=== PATIENT | female | born 1940 | race Caucasian/White ===

== ENCOUNTER 2019-06-25 09:15 | Outpatient (CLI) | payer MEDICARE, SELFPAY ==
--- NOTE | ~2019-06-25 | PE_ITS ---
EXAMINATION: PET skull to mid thigh DATE: 06/25/2019 11:12 INDICATION: Lung nodule. TECHNIQUE: Blood glucose level was 98 mg/dL. 9.261 mCi of 18-fluorodeoxyglucose (18-FDG) was administ ered i.v. Low dose computed tomography (CT) images were acquired from the base of the brain to the pr oximal thighs for attenuation correction and anatomic localization. Automated exposure control was em ployed. Dose-length product (DLP) was 595 mGy-cm. Positron emission tomography (PET) images were acqu ired in the same distribution. COMPARISON: PET CT 04/09/2019 FINDINGS: Head/neck: There is mucosal thickening in right maxillary sinus with thickening and sclerosis of the sinus shaw, consistent with chronic sinusitis. There is increased activity in the oral cavity and or opharynx without CT correlate, likely physiologic. There are no pathologically enlarged lymph nodes. There is a multinodular goiter without increased activity. Chest: There are mild airspace opacities in left upper lobe, likely atelectasis. There is a 15 mm par t-solid nodule in left upper lobe with 12 mm solid component without increased activity. There is a 4 mm nodule in right upper lobe without increased activity without change, likely benign. There is mil d atelectasis bilaterally. No pleural effusion. Cardiomegaly is noted. There are coronary artery calc ifications. No pericardial effusion. There is a small sliding hiatal hernia. Abdomen/pelvis/proximal thighs: The liver is normal. There are changes of cholecystectomy. The spleen , pancreas, and adrenal glands are normal. There are peripelvic cysts in the kidneys measuring up to 3.0 cm on the left. There is a 1.5 cm cyst in left kidney. There are no dilated loops of bowel. There is a right inguinal hernia containing small bowel. There are no pathologically enlarged lymph nodes. There is no free intraperitoneal fluid. There is no osseous malignancy. IMPRESSION: 1. 15 mm part-solid nodule in left lung upper lobe without increased activity, stable from 06/10/2018, most likely benign. Reviewed, dictated and finalized at location A.
[2019-06-25 09:38] LABS: Glucose Point of Care 98 (65-105)
== END 2019-06-25 09:16 | disposition home or self-care (01) ==
PROVIDERS: PCP Internal Medicine; Visit Provider Nurse Practitioner
DX: R91.1 Solitary pulmonary nodule (principal)
CPT/HCPCS: 78815; A9552

== ENCOUNTER 2024-03-30 06:32 | Emergency (ER) | payer MEDICARE, SELFPAY ==
--- NOTE | ~2024-03-30 | CT_ITS ---
EXAMINATION: CT diagnostic chest w con DATE: 03/30/2024 08:32 INDICATION: right chest pain TECHNIQUE: Computed tomography (CT) of the chest was performed with 100 mL Omnipaque-350 intravenous contrast. Additional 3D reconstructions utilizing coronal maximum intensity projection (MIP) were per formed. Automated exposure control and iterative reconstruction technique were employed. The dose-alexy gth product was 194.26 mGy-cm. COMPARISON: PET/CT dated 06/25/2019 and 06/10/2018 FINDINGS: There is mild groundglass opacity throughout both lungs also mild smooth septal line thickening at th e apices and lung bases likely combination of atelectasis and minimal pulmonary edema. There is addit ional mild compressive atelectasis in the left upper and lower lobes along side the thoracic aorta. A gain seen is a nodule at the left apex which measures 2.2 x 1.3 cm when compared with 1.6 x 1.3 cm at the time of PET CT from greater than 4 years prior and 06/25/2019. No evident pneumonia or pleural ef fusion. Cardiomegaly. Atherosclerotic coronary artery calcification. No pericardial effusion. Ectatic ascending thoracic aorta measuring up to 4.2 cm in maximal diameter. No pathologically enlarged thor acic lymphadenopathy. Multinodular goiter. Cholecystectomy clips in the right upper quadrant. A few p arapelvic cysts at the upper poles of the kidneys. Moderate to severe thoracic spondylosis with chron ic mild anterior wedging of T7-T9. IMPRESSION: 1. Increase in size in one dimension of a 2.2 x 1.3 cm chronic left apical nodule present dating back to 2018. Some of the interval change in the long axis appears to relate to some increasing atelectas is but could not absolutely exclude a very slowly growing malignancy such as a bronchoalveolar carcin javier. Could consider CT-guided percutaneous biopsy if patient would be a surgical candidate considerin g the patient age and the minimal progression over the course of nearly 6 years. 2. Diffuse mild atelectasis and mild pulmonary edema which could relate to congestive heart failure. 3. Cardiomegaly. 4. Multinodular goiter. 5. Ectatic ascending thoracic aorta measuring up to 4.2 cm in maximal diameter. Reviewed, dictated and finalized at location A. ING HAND IMPRESSION: 1. Increase in size in one dimension of a 2.2 x 1.3 cm chronic left apical nodu le present dating back to 2019. Some of the interval change in the long axis ap pears to relate to some increasing atelectasis but could not absolutely exclude a very slowly growing malignancy such as a bronchoalveolar carcinoma. Could co nsider CT-guided percutaneous biopsy if patient would be a surgical candidate c onsidering the patient age and the minimal progression over the course of nearl y 6 years. 2. Diffuse mild atelectasis and mild pulmonary edema which could relate to laura estive heart failure. 3. Cardiomegaly. 4. Multinodular goiter. 5. Ectatic ascending thoracic aorta measuring up to 4.2 cm in maximal diameter.
--- NOTE | ~2024-03-30 | XR_ITS ---
Clinical Indication: Chest pain PA and lateral views of the chest: Comparison: None Findings: The lungs are clear, without evidence of focal consolidation or pleural effusion. Cardiome diastinal silhouette is within normal limits. Bones and soft tissues are unremarkable. Impression: Normal chest. Reviewed, dictated and finalized at location . NURSE Impression: Normal chest.
[2024-03-30 06:39] VITALS: BP 120/68; PULSE 79; RESP 20; TEMP 36.6; O2SAT 99
[2024-03-30 06:54] LABS: Basophils Percent Auto 0.6 % (0.2-1.2); Eosinophils Absolute Auto 0.2 K/mm3 (0-0.3); Eosinophils Percent Auto 3.7 % (0-4.4); Hematocrit 44.2 % (37.0-47.0); Hemoglobin 14.6 g/dL (12.0-15.0); Immature Granulocyte Absolute 0.02 K/mm3 (0.00-0.031); Immature Granulocyte Percent A 0.3 % (0-0.5); Lymphocytes Absolute Auto 2.55 K/mm3 (0.9-3.2); Lymphocytes Percent Auto 39.5 % (18.3-44.2); Mean Corpuscular Hemoglobin 31.7 pg (26-34); Mean Corpuscular Volume 95.9 fl (80-100); Mean Platelet Volume 12.3 fl (7.4-10.4); Monocytes Absolute Auto 0.5 K/mm3 (0.1-0.6); Monocytes Percent Auto 8.2 % (2.6-8.5); Neutrophils Absolute Auto 3.1 K/mm3 (1.3-6.7); Neutrophils Percent Auto 47.7 % (45.5-73.1); Platelet Count Result 160 k/mm3 (150-375); Red Blood Count 4.61 M/mm3 (4.2-5.4); Red Cell Distribution Width 13.2 % (11.5-14.5); White Blood Count 6.5 K/mm3 (4.5-10.0)
[2024-03-30 07:03] LABS: Alanine Aminotransferase 14 U/L (6-35); Albumin Level 4.1 g/dL (3.5-5.1); Alkaline Phosphatase 65 U/L (38-126); Anion Gap 4 mmol/L (4-12); Aspartate Amino Transferase 21 U/L (14-36); Bilirubin,Total 0.4 mg/dL (0.2-1.3); Blood Urea Nitrogen 22 mg/dL (7-17); Calcium 9.1 mg/dL (8.4-10.2); Carbon Dioxide 28 mmol/L (22-30); Chloride 108 mmol/L (98-107); Estimated CRCL calculation 43 ml/min; Estimated Glomerular Filt Rate > 60; Glucose 95 mg/dL (65-110); Lipase 76 U/L (23-300); Sodium 140 mmol/L (137-145)
--- NOTE | 2024-03-30 07:23 | ED_ITS ---
HPI - Chest Pain General Chief Complaint: Abdominal Pain Stated Complaint: right sided injury Time Seen by Provider: 03/30/24 07:10 History of Present Illness HPI narrative: Pt waws bending over sink a couple of days abo and felt pain in her lateral right chest which has worsened and now hurts to move and take a deep breath. Pt denies COB. Pt had cholecystectomy in past. Pt denies cough or fever or UTi symptoms. Related Data Allergies Allergy/AdvReac Type Severity Reaction Status Date / Time codeine Allergy Unknown Rash Verified 03/30/24 07:24 Review of Systems 2 Review of Systems: All systems reviewed & are unremarkable except as noted in HPI and below Exam 2 Const: General: healthy appearing and no acute distress Nutritional Appearance: well nourished Orientation/consciousness: patient oriented x3 Limitations: no limitations Chest: Chest palpation & inspection: normal inspection of the chest and tenderness rib (lateral right lower ribs tender to palpation but no crepitance) Resp: Effort & Inspection: normal respiratory effort Auscultation: clear to auscultation bilaterally Cardio: Rate: regular rate Rhythm: regular rhythm GI: GI Palp: Yes Soft to palpation and No Tenderness to palpation present (GI) Auscultation: normal bowel sounds Skin: General skin exam: normal color Wounds: no wounds Neuro: General: patient oriented x3, moves all extremities, no focal motor deficits and CN's II-XI intact bilaterally Cranial nerves: Yes Nystagmus not present Speech: normal speech Extrem: General: normal to inspection and no clubbing, cyanosis or edema Psych: Mental Status: mental status grossly normal Affect: normal affect Attitude: cooperative Course Vital Signs Vital signs: Vital Signs Temperature 97.9 F 03/30/24 06:39 Pulse Rate 79 03/30/24 06:39 Respiratory Rate 20 03/30/24 06:39 Blood Pressure 120/68 03/30/24 06:39 Pulse Oximetry 99 03/30/24 06:39 Oxygen Delivery Room Air 03/30/24 06:39 Temperature 97.9 F 03/30/24 06:39 Pulse Rate 60 03/30/24 10:50 Respiratory Rate 16 03/30/24 10:50 Blood Pressure 125/80 03/30/24 10:50 Pulse Oximetry 97 03/30/24 10:50 Oxygen Delivery Room Air 03/30/24 06:39 MDM - Chest Pain MDM Narrative Medical decision making narrative: 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 will control pain and get cxr and labs. labs look ok. cxr unremarkable. family concerned and say she has had issues in this same area off and on for some time. Will get CT of chest to rule out malignancy. CT show nothing over this area. Pt does have apical node which is chronic and may be larger. informed pt and will follow up with pcp. will send home on pain meds. Lab Data 03/30/24 06:48 03/30/24 06:48 Labs: Lab Results 03/30/24 03/30/24 Range/Units 06:48 07:22 WBC 6.5 (4.5-10.0) K/mm3 RBC 4.61 (4.2-5.4) M/mm3 Hgb 14.6 (12.0-15.0) g/dL Hct 44.2 (37.0-47.0) % MCV 95.9 (80-100) fl MCH 31.7 (26-34) pg MCHC 33.0 (32-36) g/dl RDW 13.2 (11.5-14.5) % Plt Count 160 (150-375) k/mm3 MPV 12.3 H (7.4-10.4) fl Immature Gran % (Auto) 0.3 (0-0.5) % Neut % (Auto) 47.7 (45.5-73.1) % Lymph % (Auto) 39.5 (18.3-44.2) % [place] % (Auto) 8.2 (2.6-8.5) % Eos % (Auto) 3.7 (0-4.4) % Baso % (Auto) 0.6 (0.2-1.2) % Lymph # (Auto) 2.55 (0.9-3.2) K/mm3 [place] # (Auto) 0.5 (0.1-0.6) K/mm3 Eos # (Auto) 0.2 (0-0.3) K/mm3 Baso # (Auto) 0.0 (0.0-0.1) K/mm3 Abs Immat Gran (auto) 0.02 (0.00-0.031) K/mm3 Absolute Neuts (auto) 3.1 (1.3-6.7) K/mm3 Absolute Nucleated RBC 0.000 (0.0-0.012) K/mm3 Nucleated RBC % 0.0 (0.0-0.2) % Sodium 140 (137-145) mmol/L Potassium 4.0 (3.4-5.0) mmol/L Chloride 108 H (98-107) mmol/L Carbon Dioxide 28 (22-30) mmol/L Anion Gap 4 (4-12) mmol/L BUN 22 H (7-17) mg/dL Creatinine 0.80 (0.7-1.0) mg/dL Estim Creat Clear Calc 43 ml/min Estimated GFR > 60 (59 - ) Glucose 95 (65-110) mg/dL Calcium 9.1 (8.4-10.2) mg/dL Total Bilirubin 0.4 (0.2-1.3) mg/dL AST 21 (14-36) U/L ALT 14 (6-35) U/L Alkaline Phosphatase 65 (38-126) U/L Total Protein 7.0 (6.3-8.2) g/dL Albumin 4.1 (3.5-5.1) g/dL Lipase 76 (23-300) U/L Urine Color Yellow (Yellow) Urine Appearance Clear (Clear) Urine pH 7.0 (5.0-9.0) Ur Specific [place] 1.009 (1.001-1.035) Urine Protein Negative (Negative) mg/dL Urine Glucose (UA) Negative (Negative) mg/dL Urine Ketones Negative (Negative) mg/dL Ur Blood (Man) Negative (Negative) Urine Nitrate Negative (Negative) Urine Bilirubin Negative (Negative) Urine Urobilinogen 1.0 (<2.0) mg/dL Add Ur Microanalysis Reviewed Leukocyte Esterase Rfl 2+ H (Negative) STEPHENIE/UL Urine RBC 0-2 (0-2) /hpf Urine WBC 0-5 (0-3) /hpf Ur Squamous Epith Cells None seen (Few) /hpf Urine Bacteria 4+ H /hpf Urine Casts 0-2 Discharge Plan Discharge Clinical Impression: Chest wall pain, Acute UTI Patient Disposition: Home, Self-Care Condition: Improved Instructions: Antibiotic Form, Chest Wall Pain (ED), Urinary Tract Infection in Older Adults (ED) Patient Language: Korean Prescriptions: New hydrocodone-acetaminophen 5-325 mg tablet 1 tablet PO Q8H PRN (Reason: pain) Qty: 14 0RF nitrofurantoin monohyd/m-cryst [Macrobid] 100 mg capsule 100 mg PO Q12H 5 Days Qty: 10 0RF Rx Instructions: must administer with a meal/food Follow-up/Referrals: Sofi,Keegan Martinez MD [Primary Care Provider] -
[2024-03-30] MEDS: MORPHINE SULFATE (*CRX) 4 MG/ML INJ IV PUSH (07:26)
[2024-03-30 07:41] LABS: Add Urine Microscopic? YES; Appearance Urine Clear (Clear); Bacteria Urine 4+ /hpf; Bilirubin Urine Negative (Negative); Blood Urine Negative (Negative); Color Urine Yellow (Yellow); Glucose Urine UA Negative (Negative); Ketones Urine Negative (Negative); Leukocyte Esterase Ur 2+ LEU/UL (Negative); Need Manual Microscopic Reviewed; Nitrate Urine Negative (Negative); Non Pathogenic Casts 0-2; Protein Urine Negative (Negative); RBC Urine 0-2 /hpf (0-2); Specific Grav Ur 1.009 (1.001-1.035); Squamous Epithelial Cell Urine None Seen /hpf (Few); WBC Urine 0-5 /hpf (0-3)
[2024-03-30] MEDS: ONDANSETRON INJ 4 MG/2 ML VIAL IV PUSH (07:41)
[2024-03-30 07:43] VITALS: BP 126/62; PULSE 63; RESP 14; O2SAT 94
[2024-03-30 09:16] VITALS: BP 126/62; PULSE 65; RESP 14; O2SAT 97
[2024-03-30 10:50] VITALS: BP 125/80; PULSE 60; RESP 16; O2SAT 97
--- OUTSIDE RECORDS SUMMARY | 2024-04-04 14:29 | XMS_ITS | Encounter Summary ---
Author Organization [facility] Address [address] [place] [address] Phone Care Team Providers Care Marketing Specialist Name Role Phone Keegan Farah MD Primary Care Provider [phone] Reason for Visit * Reason Comments Fall Encounter Details Date Type Department Care Team (Late st Contact Info) Description 05/05/2022 1:12 PM RAT BREEDER - 05/05/2022 6:11 PM RAT BREEDER Emergency [facility] [address] [place] [address] Myron Akins MD [address] [place] [id number] Fall down stairs, initial encounter Discharge Disposition: Discharged to home or Selfcare Social History Tobacco Use Types Packs/Day Years Used Date Smoking Tobacco: Never Passive Smoke Exposure: Never Smokeless Tobacco: Never Tobacco Cessation:Counseling Given: Not Answered Alcohol Use Standard Drinks/Week Comments Never 0 (1 standard drink = 0.6 oz pur e alcohol) Comments Unknown Sex and Gender Information Value Date Recorded Sex Assigned at Not on file Legal Sex Female 1:11 PM RAT BREEDER Gender Identity Not on file Sexual Orientation Not on file COVID-19 Exposure Response Date Recorded In the last 10 days, have yo u been in contact with someone who was confirmed or suspected to have Coronavirus/COVID-19? No / Unsure 05/05/2022 1:11 PM RAT BREEDER documented as of this encounter Last Filed Vital Signs Vital Sign Reading Time Taken Comments Blood Pressure 105/58 05/05/2022 3:30 PM RAT BREEDER Pulse 79 05/05/2022 1:36 PM RAT BREEDER Temperature 36.3 ??C (97.4 ??F) 05/05/2022 1:36 PM CS T Respiratory Rate 20 05/05/2022 1:13 PM RAT BREEDER Oxygen Saturation 90% 05/05/2022 3:30 PM RAT BREEDER Inhaled Oxygen Concentration - - Weight 73 kg (161 lb) 05/05/2022 1:13 PM RAT BREEDER Height 162.6 cm (5' 4 ) 05/05/2022 1:13 PM RAT BREEDER Body Mass Index 27.64 05/05/2022 1:13 PM RAT BREEDER documented in this encounter Discharge Instructions * Discharge Instructions* Myron Akins MD - 05/05/2022 5:20 PM RAT BREEDER WOUND CARE INSTRUCTIONS You have been treated for a laceration. Please follow the instructions below to care for your wound. TREATMENT Keep the wound and bandage clean. Bandages can be changed every 1-3 days, or when soiled. After removing the bandage, gently clean the wound with soap and water. A shower can be taken starting 24 hours after repair, but do not soak your wound for the next 72 hours. After cleansing the wound, apply a coating of antibiotic ointment and a new bandage. Face wounds can be left uncovered. Your sutures are dissolvable sutures. These do not need to be removed. You have been treated with steri strips for the laceration under your eyebrow. The Steri-Strips will fall off on their own with time as healing progresses. Do not apply any oil based product to site (vaseline or triple antibiotic ointment) because this will affect the steri strips increasing the risk of poor wound healing and infection. It is okay to clean area with soapy water but do not submerse area in water. Do not scrub site too vigorously. NOTIFY YOUR DOCTOR OR RETURN TO THE EMERGENCY DEPARTMENT IF YOU EXPERIENCE: 5-7% of wounds get infected despite cleaning in the emergency department. Look for any signs of infection such as worsening pain, redness, swelling, drainage, increased pain, red streaks, or fever. Please return emergency department immediately if any of these signs develop. Foreign bodies in a laceration can be missed in the Emergency Department, even with x-rays. You mayhave a retained foreign body in your wound. If you have persistent pain, redness, or swelling even after skin has healed, please follow- up or return to the emergency department to check for a retained foreign body. Concerning your chest pain: You can take ibuprofen or tylenol every 4-6 hours as needed for your symptoms. You must take the ibuprofen with food or it can cause abdominal pain and vomiting. Keep in mind that you can only take 4000 mg of Tylenol per day before you are at risk for liver damage. You were also given a prescription for oral Dilaudid to use as needed for pain. You were given the IV version of this medication while in the emergency department any did not develop any hives while you were here. Do not drink alcohol or drive while taking the dilaudid because it may make you drowsy. Also, be cautious combining dilaudid with any other pain medication, muscle relaxants, anxiety medications, and/or sleeping aids because they may have cumulative side effects. Loyal also has addictive potential so you were only given a small prescription with no refills. Use the incentive spirometer 10 times an hour while awake. This will decrease your chances of developing pneumonia. Concerning your patellar fracture: Take the pain medications as we discussed above. You can be toe-touch weight-bearing only until you follow-up with the orthopedic surgeon. Do not try to bear full weight on your right leg. Watch for signs and symptoms of compartment syndrome such a increased swelling, increasing or change in pain, loss of pulse, decreased cap refill, or loss of sensation. See attached sheet for more information. Keep the knee immobilizer in place until follow-up. (Monitor splint for increased extremity swelling, increasing or change in pain, loss of pulse, decreased cap refill, loss of sensation, or if they area below the splint becomes cold as we discussed. If symptoms develop, first loosen splint. If symptoms do not improve with loosening of knee immobilizer, return to the emergency department.) Return to the emergency department if your symptoms worsen or change, your pain is uncontrolled, oryou have any concerns. Make sure to follow up with the ortho to ensure best chance of healing and functional recovery as we discussed. Please call the orthopedist office 1st thing Saturday morning to schedule this close follow-up appointment. Please also call your primary care doctor on Saturday to schedule close follow-up appointment. There were several incidental finding seen on your imaging on the emergency department today including a thyroid nodule in the lung nodule. These will require repeat imaging, which can be done by your primary care doctor. It is very important to follow-up on these to make sure that they are not cancer. The examination and treatment you have received in the Emergency Department has been given on an emergency basis only. Again, it is very important that you return immediately if your condition worsens, any new symptomsdevelop, or you do not recover as expected. BREEDER BREEDER BREEDER * Attachments The following attachments cannot be sent through Care Everywhere. * Laceration Care Adult [id number] (Gambian) * Acute Compartment Syndrome (Gambian) documented in this encounter Medications at Time of Discharge alendronate (FOSAMAX) 70 MG Tablet Take 70 mg by mouth every 7 days. ONE DAILY amLODIPine (NORVASC) 10 MG Tablet Take 10 mg by mouth daily. ONE DAILY aspirin 325 MG Tablet Take 325 mg by mouth daily. ONE DAILY calcium 500 MG Tablet Take 600 mg by mouth daily. TWO DAILY lisinopril (PRINIVIL, ZESTRIL) 40 MG Tablet Take 40 mg by mouth daily. ONE DAILY Multiple Vitamins-Minerals (MULTIVITAL PO) Take by mouth once. ONE DAILY pantoprazole (PROTONIX) 40 MG Pack 40 mg by Per NG tube route daily. ONE DAILY simvastatin (ZOCOR) 20 MG Tablet Take 20 mg by mouth every evening. ONE DAILY HYDROmorphone (Dilaudid) 2 MG TabletIndications: Closed nondisplaced fracture of right patella, unspecified fracture morphology, initial encounter,Chest pain, unspecified type Take 0.5 Tablets by mouth every 6 hours as needed for Severe pain for up to 7 days. 12 Tablet 05/05/2022 3 documented as of this encounter ED Notes * Shea Menchaca RN - 05/07/2022 4:24 PM CST Positive urine culture present; patient did not receive treatment per ECC. Police Stenographer contacted PMD's office to update about result, verify patient active and fax number. Police Stenographer faxed culture and sensitivity with positive fax confirmation. BREEDER * Erica Aparicio CNA - 05/05/2022 5:15 PM CST Police Stenographer put knee immobilizer on patient. Police Stenographer got patient up and walked patient with walker. Patient showed no distress at this time, patient denies pain. Patient was able to walk without difficulties. Police Stenographer informed MD Akins of ambulation BREEDER * Roshni Harris CMA - 05/05/2022 3:41 PM CST Laceration on right cheekbone was cleaned and irrigated. Pt tolerated well. BREEDER BREEDER * Myron Akins MD - 05/05/2022 1:18 PM CSTAssociated Order(s): Laceration Repair; Laceration Repair Images from the original note were not included. Chief Complaint Patient presents with ??? Fall HPI Patient is an 81-year-old woman with past medical history of hypertension who presents to the emergency department today after a fall. Patient states that she was going up the stairs today when she missed a stair and tripped. She states she then fell face down several stairs. She states she is having pain on the right side of her face, head, chest and pain in her right knee. She is not on any blood thinning medications. She is unsure if she hit her head which she did not lose consciousness. Sheis unsure when her last tetanus shot was. She denies any shortness of breath, chest pain or lightheadedness prior to or after the fall. She has a cut above her right eyebrow and a cut on her right cheek. She is able to close her mouth completely and does not feel like her teeth are malaligned. She states she is having some right-sided chest pain that is worsened with deep inspiration. She is having some lower abdominal pain at present, although she treats this to need to urinate. She is not having any hip pain. No pain in her left leg. Patient endorses right knee pain. No numbness or weaknessin her arms or legs. No pain in her right ankle or foot. Current Facility-Administered Medications Medication Dose Route Frequency Provider Last Rate Last Admin ??? lidocaine 1 % injection 5 mL 5 mL Injection Once Myron Akins MD Current Outpatient Medications Medication Sig Dispense Refill ??? alendronate (FOSAMAX) 70 MG Tablet Take 70 mg by mouth every 7 days. ONE DAILY ??? amLODIPine (NORVASC) 10 MG Tablet Take 10 mg by mouth daily. ONE DAILY ??? aspirin 325 MG Tablet Take 325 mg by mouth daily. ONE DAILY ??? calcium 500 MG Tablet Take 600 mg by mouth daily. TWO DAILY ??? HYDROmorphone (Dilaudid) 2 MG Tablet Take 0.5 Tablets by mouth every 6 hours as needed for Severe pain for up to 7 days. 12 Tablet 0 ??? lisinopril (PRINIVIL, ZESTRIL) 40 MG Tablet Take 40 mg by mouth daily. ONE DAILY ??? Multiple Vitamins-Minerals (MULTIVITAL PO) Take by mouth once. ONE DAILY ??? pantoprazole (PROTONIX) 40 MG Pack 40 mg by Per NG tube route daily. ONE DAILY ??? simvastatin (ZOCOR) 20 MG Tablet Take 20 mg by mouth every evening. ONE DAILY Allergies Allergen Reactions ??? Codeine Hives ??? Sulfa Antibiotics Unknown Pt sts I can't remember, but the dr told me not to ever take anything with sulfur. Past Medical History Positives Diagnosis Date ??? Hypertension Past Surgical History: Procedure Laterality Date ??? GALLBLADDER SURGERY ??? HYSTERECTOMY Social History Socioeconomic History ??? Marital status: Spouse name: Not on file ??? Number of children: Not on file ??? Years of education: Not on file ??? Highest education level: Not on file Occupational History ??? Not on file Tobacco Use ??? Smoking status: Never Passive exposure: Never ??? Smokeless tobacco: Never Vaping Use ??? Vaping Use: Never used Substance and Sexual Activity ??? Alcohol use: Never ??? Drug use: Never ??? Sexual activity: Not on file Other Topics Concern ??? Not on file Social History Narrative ??? Not on file BP 105/58 Pulse 79 Temp 97.4 ??F (36.3 ??C) (Oral) Resp 20 Ht 5' 4 (1.626 m) Wt 161 lb (73 kg) SpO2 90% BMI 27.64 kg/m?? Review of Systems Constitutional: Negative for chills and fever. HENT: Negative for congestion, rhinorrhea and sore throat. Eyes: Negative for pain and visual disturbance. Respiratory: Negative for cough, shortness of breath and wheezing. Cardiovascular: Positive for chest pain. Negative for leg swelling. Gastrointestinal: Negative for abdominal pain, diarrhea, nausea and vomiting. Genitourinary: Negative for dysuria, frequency and hematuria. Musculoskeletal: Positive for gait problem and myalgias. Negative for arthralgias, back pain, neck pain and neck stiffness. Skin: Positive for wound. Negative for color change and rash. Neurological: Negative for dizziness and headaches. Psychiatric/Behavioral: Negative for agitation and behavioral problems. Physical Exam Vitals and nursing note reviewed. Constitutional: General: She is not in acute distress. Appearance: Normal appearance. She is normal weight. She is not ill-appearing. HENT: Head: Normocephalic. Comments: Patient has an approximately 0.5 cm superficial laceration under her right eyebrow. She has an approximately 2 cm laceration below her right cheek. Cranial nerves are grossly intact. Pupilsare equal, round and reactive. Patient is able to raise eyebrows without difficulty. Nose: Nose normal. No congestion. Mouth/Throat: Mouth: Mucous membranes are moist. Pharynx: Oropharynx is clear. Comments: No bleeding noted in patient's oropharynx. She is able to close her mouth completely and she states her teeth do not feel misaligned. Eyes: Extraocular Movements: Extraocular movements intact. Conjunctiva/sclera: Conjunctivae normal. Pupils: Pupils are equal, round, and reactive to light. Neck: Comments: No tenderness to palpation. No step-offs noted. Cardiovascular: Rate and Rhythm: Normal rate and regular rhythm. Pulses: Normal pulses. Comments: Patient does endorse tenderness to palpation of her right lateral chest wall. No flail chest appreciated. Lungs are clear to auscultation bilaterally. Pulmonary: Effort: Pulmonary effort is normal. No respiratory distress. Breath sounds: Normal breath sounds. No wheezing, rhonchi or rales. Abdominal: General: Abdomen is flat. There is no distension. Palpations: Abdomen is soft. Tenderness: There is no abdominal tenderness. Musculoskeletal: Cervical back: Normal range of motion and neck supple. Comments: Pelvis is stable to rock. Patient is able to lift her left leg without difficulty. Patient does not lift her right leg and attributes this to right knee pain. Patient has generalized tenderness to palpation of her right knee. No tenderness to palpation of her distal lower extremities bilaterally. DP pulses are 2+ bilaterally. Patient is able to dorsiflex and plantar flex her feet without difficulty. Skin: General: Skin is warm and dry. Capillary Refill: Capillary refill takes less than 2 seconds. Neurological: General: No focal deficit present. Mental Status: She is alert and oriented to person, place, and time. Comments: Pt. A/O x 3. Phonation normal, fluency, comprehension normal. No dysarthria or aphasia. Thought content appropriate, CN 2-12 intact, pt. Strength in arms is 5/5. Strength testing in patient's right lower extremity is limited secondary to knee pain. Strength testing in the left lower extremity is 5/5. No tremor or seizure activity noted. No fasciculations or atrophy noted to muscles. EOMintact. Sensation intact to light touch in all distal ext. Psychiatric: Mood and Affect: Mood normal. Behavior: Behavior normal. Laceration Repair Date/Time: 05/05/2022 5:34 PM Performed by: Myron Akins MD Authorized by: Myron Akins MD Consent: Verbal consent obtained. Consent given by: patient Patient understanding: patient states understanding of the procedure being performed Patient identity confirmed: verbally with patient Body area: head/neck Location details: right eyebrow Laceration length: 0.5 cm Foreign bodies: no foreign bodies Tendon involvement: none Nerve involvement: none Sedation: Patient sedated: no Irrigation solution: saline Amount of cleaning: standard Debridement: none Degree of undermining: none Skin closure: Steri-Strips (3) Approximation: close Approximation difficulty: simple Patient tolerance: patient tolerated the procedure well with no immediate complications Laceration Repair Date/Time: 05/05/2022 5:36 PM Performed by: Myron Akins MD Authorized by: Myron Akins MD Consent: Verbal consent obtained. Risks and benefits: risks, benefits and alternatives were discussed Consent given by: patient Patient identity confirmed: verbally with patient Body area: head/neck Location details: right cheek Laceration length: 2 cm Foreign bodies: no foreign bodies Tendon involvement: none Nerve involvement: none Vascular damage: no Anesthesia: local infiltration Anesthesia: Local Anesthetic: lidocaine 1% without epinephrine Anesthetic total: 3 mL Sedation: Patient sedated: no Irrigation solution: saline Irrigation method: syringe Amount of cleaning: standard Debridement: none Degree of undermining: none Wound skin closure material used: 4-0 chronic gut. Number of sutures: 3 Technique: simple Approximation: close Approximation difficulty: simple Patient tolerance: patient tolerated the procedure well with no immediate complications Imaging Results CT CHEST ABDOMEN AND PELVIS W CONTRAST (Final result) Result time 05/05/22 15:34:52 Final result by Sissy Gordon MD (05/05/22 15:34:52) Narrative: EXAMINATION: CT CHEST ABDOMEN AND PELVIS W CONTRAST 05/05/2022 INDICATIONS: Polytrauma, blunt trauma, patient tripped and fell and landed on face. Laceration to face. Pain andright ribs. Bilateral shoulder pain right greater than left. COMPARISON: None TECHNIQUE: Following the administration of intravenous contrast, helical imaging was performed through the chest abdomen and pelvis. A dose lowering technique was used for this procedure, which may include, but is not limited to, dose reduction technique(s), automated exposure control techniques, use of iterative reconstruction techniques, and ALARA (as low as reasonably achievable) or ALARA/IMAGE Gently techniques. FINDINGS: Chest: Cardiovascular: Atherosclerotic disease is present within the thoracic aorta with ectasia of the ascending aorta. No traumatic aortic injury or mediastinal hematoma. Significant coronary artery calcification is seen. Heart size is enlarged. There is apparent left ventricular hypertrophy. The pulmonary arterial tree is intact without pulmonary embolism. Pleura: No significant pleural or pericardial effusion is seen. Lymphatics: Enlargement of the left lobe of the thyroid is seen. Multiple bilateral complex thyroidnodules are seen. Given the complex appearance of the nodules and calcifications, recommend furtherevaluation with thyroid ultrasound. Less than 1 cm lymph nodes are present. Calcified lymph nodes are seen consistent with granulomatous disease. Lungs: There is an irregular nodular density within the left lung apex measuring 1.6 x 1.3 cm. Thisis suspicious for malignancy. Recommend further evaluation with CT PET. Atelectatic changes are seen. No pneumothorax is seen. No pulmonary contusion. Additional small subpleural nodule posteriorly within right upper lobe is nonspecific. Follow-up recommended. Abdomen and pelvis: Hepatobiliary: Mild hepatic steatosis is present. No discrete liver lesions are seen. No traumatic liver injury is identified. The gallbladder is absent. There is mild intra and extrahepatic biliaryductal dilatation likely related to prior cholecystectomy. The pancreas is unremarkable. Lymphatics: The spleen is not enlarged. Less than 1 cm lymph nodes are seen. No significant adenopathy. : The right adrenal gland is unremarkable. There is a small left adrenal nodule which is nonspecific but favored benign. Kidneys demonstrate symmetric enhancement. Cortical and parapelvic renal cysts are seen. No solid mass identified. Uterus is absent. No adnexal mass appreciated. The bladder is probably within normal limits. GI: Bowel gas pattern is nonobstructive. Stool is present throughout the colon. Borderline thickening of the distal esophagus. No other focal bowel abnormality seen. No free fluid is identified. Vascular: Atherosclerotic disease is present without evidence of aneurysm. Musculoskeletal: Degenerative changes are seen. No fracture or significant traumatic injury is appreciated. IMPRESSION 1. No significant acute traumatic injury within the chest, abdomen or pelvis. 2. Somewhat irregular nodular density within the left lung apex concerning for malignancy. Recommend further evaluation. CT PET could be obtained to better characterize. Tiny nodule subpleural posterior right upper lobe is nonspecific. Follow-up recommended. 3. Enlargement left lobe of the thyroid. There is multiple bilateral complex appearing thyroid nodules as described above. Recommend correlation with thyroid ultrasound. 4. Atherosclerotic disease in the aorta with ectasia of the ascending aorta measuring 4 cm. Significant coronary artery calcification is seen. Heart size is enlarged with apparent left ventricular hypertrophy. 5. Mild hepatic steatosis. 6. Cortical and parapelvic renal cysts. Electronically signed by: SISSY GORDON MD Date of Signature: 05/05/2022 15:30:36 CT CERVICAL SPINE WO/ CONTRAST (Final result) Result time 05/05/22 15:12:51 Final result by Sissy Gordon MD (05/05/22 15:12:51) Narrative: EXAMINATION: CT CERVICAL SPINE WO/ CONTRAST 05/05/2022 INDICATIONS: Neck trauma (Age >= 65y) neck trauma. Patient tripped and fell face 1st. Laceration to face. Jawpain. Pain extending from the neck into the shoulder and back COMPARISON: None TECHNIQUE: Noncontrast helical imaging was performed through the cervical spine. Coronal and sagittal reformats also performed. A dose lowering technique was used for this procedure, which may include, but is not limited to, dose reduction technique(s), automated exposure control techniques, use of iterative reconstruction techniques, and ALARA (as low as reasonably achievable) or ALARA/IMAGE Gently techniques. FINDINGS: There is no evidence of acute cervical spine fracture or significant malalignment. The predental space and prevertebral soft tissues are within normal limits. The dens and lateral masses are well aligned. Multilevel degenerative changes are seen. There is enlargement left lobe of the thyroid. Bilateral thyroid nodules are seen. Recommend follow-up thyroid ultrasound. Nodular density within the left lung apex is seen. See dedicated CT chest. IMPRESSION 1. No acute cervical spine fracture or significant malalignment. 2. Multilevel degenerative changes. 3. Enlargement left lobe of the thyroid. Bilateral thyroid nodules are seen. Recommend follow-up thyroid ultrasound. 4. Irregular nodular density within the left lung apex. See dedicated CT chest report dictated separately. Electronically signed by: SISSY GORDON MD Date of Signature: 05/05/2022 15:08:35 CT FACIAL BONES WO CONTRAST (Final result) Result time 05/05/22 15:15:20 Final result by Sissy Gordon MD (05/05/22 15:15:20) Narrative: EXAMINATION: CT FACIAL BONES WO CONTRAST 05/05/2022 INDICATIONS: Facial trauma, blunt facial trauma. Blunt trauma. Patient tripped and fell face 1st. Injury to right-side of face. Laceration. COMPARISON: CT brain from today TECHNIQUE: Noncontrast helical imaging was performed through the facial bones. Coronal and sagittal reformats also performed. A dose lowering technique was used for this procedure, which may include, but is not limited to, dose reduction technique(s), automated exposure control techniques, use of iterative reconstruction techniques, and ALARA (as low as reasonably achievable) or ALARA/IMAGE Gently techniques. FINDINGS: No definite acute facial bone fracture is seen. There is chronic sinus disease of the right maxillary sinus. Bony sclerosis and thickening is seen. There is mucosal thickening with calcification concerning for fungal sinusitis. Additional mild sinus disease is seen within the left maxillary sinus and ethmoids. The mastoids are clear. There is soft tissue swelling within the right face extending into the periorbital region. IMPRESSION 1. No acute facial bone fracture. 2. Soft tissue injury of the right face with small laceration and edema. This extends into the right periorbital region. 3. Chronic sinus disease of the right maxillary sinus. Bony sclerosis and thickening is seen. Thereis apparent dehiscence inferior laterally. There is mucosal thickening with high density concerningfor fungal sinusitis. Additional mild sinus disease is seen within the ethmoids and left maxillary sinus. Electronically signed by: SISSY GORDON MD Date of Signature: 05/05/2022 15:11:22 CT HEAD OR BRAIN WO CONTRAST (Final result) Result time 05/05/22 15:10:22 Final result by Sissy Gordon MD (05/05/22 15:10:22) Narrative: EXAMINATION: CT HEAD OR BRAIN WO CONTRAST 05/05/2022 INDICATIONS: Head trauma, intracranial venous injury suspected trauma. Patient tripped on steps and fell face 1st. Laceration right face. Head injury. Pain in mouth. COMPARISON: None TECHNIQUE: Noncontrast imaging was performed through the brain. A dose lowering technique was used for this procedure, which may include, but is not limited to, dose reduction technique(s), automated exposure control techniques, use of iterative reconstruction techniques, and ALARA (as low as reasonably achievable) or ALARA/IMAGE Gently techniques. FINDINGS: There is no evidence of acute intracranial hemorrhage, mass effect or midline shift. Sulci and ventricles are within normal limits. Chronic small vessel ischemic and lacunar changes are present. Small focus of fat is seen along the falx. Chronic sinus disease is seen right maxillary sinus. There is some calcification present concerningfor fungal sinusitis. IMPRESSION 1. No acute intracranial abnormality identified. 2. Chronic small vessel ischemic and lacunar changes. 3. Sinus disease right maxillary sinus concerning for fungal sinusitis. Electronically signed by: SISSY GORDON MD Date of Signature: 05/05/2022 15:06:15 XR KNEE MINIMUM 4 VIEWS RIGHT (Final result) Result time 05/05/22 14:33:51 Final result by Sissy Gordon MD (05/05/22 14:33:51) Narrative: EXAMINATION: XR KNEE MINIMUM 4 VIEWS RIGHT INDICATIONS: R knee pain after fall. 81-year-old with right knee pain after fall COMPARISON: None. FINDINGS: AP lateral oblique and sunrise views of the right knee demonstrate a transverse fracture through the mid patella with involvement of the articular margin. Mild displacement is seen. Joint effusion ispresent. No other fractures identified. Chronic appearing density is seen adjacent to the fibular head. Mild degenerative changes are seen. Chondrocalcinosis is present. IMPRESSION 1. Transverse fracture mid patella involving the articular margin. Mild displacement is seen. Associated joint effusion is present. 2. Mild degenerative changes with chondrocalcinosis. Electronically signed by: SISSY GORDON MD Date of Signature: 05/05/2022 14:30:09 XR CHEST SINGLE VIEW PORTABLE (Final result) Result time 05/05/22 13:58:19 Final result by Sissy Gordon MD (05/05/22 13:58:19) Narrative: EXAMINATION: XR CHEST SINGLE VIEW PORTABLE INDICATIONS: fall. 81-year-old with fall patient tripped and fell and landed on face. Pain right ribcage in chest. COMPARISON: None. FINDINGS: The cardiac silhouette size is within normal limits. No focal consolidation edema or pleural effusion is identified. Calcified granulomas seen within the right lung base. No definite rib fracture appreciated. Further evaluation as clinically indicated. IMPRESSION No definite acute cardiopulmonary disease. Further evaluation as clinically indicated. Electronically signed by: SISSY GORDON MD Date of Signature: 05/05/2022 13:54:10 Labs Reviewed CMP (COMPREHENSIVE METABOLIC PANEL) - Abnormal; Notable for the following components: Result Value CHLORIDE 109 (*) GLUCOSE 111 (*) BUN 21 (*) BUN/CREATININE RATIO 30 (*) All other components within normal limits Narrative: Venipuncture should occur prior to sulfasalazine and/or sulfapyridine administration due to the potential for falsely depressed results for ALT and AST. Glucose can be falsely depressed after administration of sulfasalazine, and falsely elevated with administration of sulfapyridine. URINALYSIS MICROSCOPIC IF INDICATED - Abnormal; Notable for the following components: WBC ESTERASE Trace (*) BACTERIA, URINE Many (*) URINE SQUAMOUS EPITHELIAL CELLS Small amount (*) All other components within normal limits Narrative: Urine culture has been ordered. PROTIME (PT) (PROTHROMBIN TIME) - Abnormal; Notable for the following components: PROTIME-PATIENT 14.6 (*) INR 1.2 (*) All other components within normal limits APTT (PTT) - Normal POCT CREATININE - Normal CULTURE, URINE COMPLETE BLOOD COUNT (CBC) WITH DIFF Narrative: The following orders were created for panel order Complete Blood Count (CBC) WITH Diff. Procedure Abnormality Status --------- ------ CBC with Auto Differential[[id number]] Final result Please view results for these tests on the individual orders. CBC WITH AUTO DIFFERENTIAL ED Course: Patient is an 81-year-old woman who presents to the emergency room today after a mechanical fall down several stairs. Vitals stable on arrival. Patient was given fluids, fentanyl and Zofran. On reassessment Her pain was initially improved and then worsened. She required several doses of pain medication for improvement in her pain. Tetanus was updated. Labs and imaging ordered to evaluate for multiple possible injuries including intracranial process,facial fractures including jaw fractures, rib fractures, pneumothorax and blunt abdominal trauma. EKG shows sinus rhythm with normal intervals. No significant ST elevations or depressions. No previous for comparison. Lab and imaging results as above. I discussed the patient's CT facial bones reading with Dr. Ardon, On-call for ENT. As long as the patient is not immunocompromised, having fevers or complaining of significant pain his vision, he recommends holding off on treatment at this time and following up with his office as an outpatient. I discussed the patient's knee x-ray with Dr. Ibarra. He recommended a knee immobilizer and outpatient follow-up. Discussed the patient can be toe-touch weight-bearing only. I discussed lab imaging results with the patient. We discussed the incidental finding seen on her imaging as well as her knee x-rays and reassuring imaging results. We discussed admission versus discharge home with close follow-up. At this time, patient would rather be discharged home with [facility] hospital. We discussed that she would need to demonstrated she can ambulate with a walker, which she hasa home, with her knee immobilizer in place. Patient was able to do so with significant pain or balance issues. Discussed the patient's imaging was negative for rib fractures but that she likely has rib contusions. Discussed she would need to be discharged home with an incentive spirometer and gave precautionsfor that. Also gave return precautions for compartment as well as generalized return precautions for patient's pain. We also discussed wound care for the patient need for close follow-up with her primary care doctor for a wound check. All questions answered. Discussed precautions for sending patient home with oral Dilaudid, as she tolerated IV Dilaudid here with no recurrence of hives. Return precautions given and all questions answered. Patient voiced understanding and was comfortable with thedischarge plan. Patient was discharged in stable condition. Disclaimer: This document was prepared using voice recognition technology. If a word or phrase is confusing or does not make sense, this is likely due to recognition error within the program which was not discovered during the providers review. If you believe an error has occurred, please notify provider via PALS ([phone]). Medical Decision Making Chest pain, unspecified type: acute illness or injury Closed nondisplaced fracture of right patella, unspecified fracture morphology, initial encounter: acute illness or injury Facial laceration, initial encounter: acute illness or injury Fall down stairs, initial encounter: acute illness or injury Amount and/or Complexity of Data Reviewed External Data Reviewed: labs, radiology and ECG. Labs: ordered. Decision-making details documented in ED Course. Radiology: ordered and independent interpretation performed. Decision-making details documented in ED Course. ECG/medicine tests: ordered and independent interpretation performed. Discussion of management or test interpretation with external provider(s): See ED Course above Risk OTC drugs. Prescription drug management. Decision regarding hospitalization. Coding Clinical Impression 1. Closed nondisplaced fracture of right patella, unspecified fracture morphology, initial encounter 2. Fall down stairs, initial encounter 3. Chest pain, unspecified type 4. Facial laceration, initial encounter BREEDER * Sidney Cruz RN - 05/05/2022 1:15 PM CST Pt arrived BLS/EMS to the [facility] [employer] [facility] due to fall. EMS reports she was coming out andgoing up the step and tripped and went face down. EMS reports she did not have LOC. EMS she fell onher right side, and she complains of right shoulder pain, she has a laceration on her right cheek, right knee pain, and she started complaining of right jaw pain. Pt sts I'm also having pain my righ t side (rib), and my teeth are hurting. EMS reports she taken on 81 mg aspirin today, but she's not on any blood thinners. Pt complains of pain from her right shoulder, sts it goes over to the left shoulder. Pt reports her most pain is in her right rib cage. She rates her pain 7 on 0-10 scale. She is A/ox4, resp easy non-labored, PWD. [place]-[employer]ICIDE SEVERITY RATING SCALE Ask questions that are bolded and underlined. Past month Ask Questions 1 and 2 YES NO 1) Have you wished you were or wished you could go to sleep and not wake up? n 2) Have you actually had any thoughts of killing yourself? n If YES to 2, ask questions 3, 4, 5, and 6. If NO to 2, go directly to question 6. 3) Have you been thinking about how you might do this? E.g. ???I thought about taking an overdose but I never made a specific plan as to when where or howI would actually do it???.and I would never go through with it.?? 4) Have you had these thoughts and had some intention of acting on them? As opposed to ???I have the thoughts but I definitely will not do anything about them.?? 5) Have you started to work out or worked out the details of how to kill yourself? Do you intend tocarry out this plan? 6) Have you ever done anything, started to do anything, or prepared to do anything to end your life? Examples: Collected pills, obtained a gun, gave away valuables, wrote a will or suicide note, took out pills but didn???t swallow any, held a gun but changed your mind or it was grabbed from your hand, went to the roof but didn???t jump; or actually took pills, tried to shoot yourself, cut yourself, tried to hang yourself, etc. If YES, ask: Was this within the past three months? Lifetime n Past 3 Months n Item 1: If yes, Physician Notified and Behavioral Health Referral at Discharge placed? Item 2: If yes, Physician Notified and Behavioral Health Referral at Discharge placed? Item 3: If yes, Physician Notified and Behavioral Health Consult ordered? Item 4: If yes, Physician Notified and Behavioral Health and Patient Safety precautions ordered? Item 5: If yes, Physician Notified and Behavioral Health and Patient Safety precautions ordered? Item 6: If yes and over 3 months ago, Physician Notified and Behavioral Health Consult ordered? Item 6: If yes and less than 3 months ago, Physician Notified and Behavioral Health and Patient Safety precautions ordered? BREEDER * Angel Coreas RN - 05/05/2022 1:12 PM CST Bed: ED-23 Expected date: Expected time: Means of arrival: Comments: BREEDER documented in this encounter Plan of Treatment Scheduled Orders Name Type Priority Associated Diagnoses Orde r Schedule Incentive Spirometry Rt-Initial Respiratory Care Routine Closed nondisplaced fracture of right patella, unspecified fracture morphology, initial encounter Chest pain, unspecified type 1 Occurrences starting 05/05/2022 until 11/02/2022 documented as of this encounter Procedures Procedure Name Priority Date/Time Associated Diagnosis Comments LACERATION REPAIR Routine 05/05/2022 5:3 6 PM RAT BREEDER LACERATION REPAIR Routine 05/05/2022 5:[address] CHEST ABDOMEN AND PELVIS W CONTRAST Stat with Interpretation 05/05/2022 2:[address] CERVICAL SPINE WO/ CONTRAST Stat with Interpretation 05/05/2022 2:[address] FACIAL BONES WO CONTRAST Stat with Interpretation 05/05/2022 2:[address] HEAD OR BRAIN WO CONTRAST Stat with Interpretation 05/05/2022 2:35 PM RAT BREEDER XR KNEE MINIMUM 4 VIEWS RIGHT STAT 05/05/2022 2:22 PM RAT BREEDER XR CHEST SINGLE VIEW PORTABLE Stat with Interpretation 05/05/2022 1:53 PM RAT BREEDER URINALYSIS MICROSCOPIC IF INDICATED STAT 05/05/2022 1:49 PM RAT BREEDER CBC WITH AUTO DIFFERENTIAL STAT 05/05/2022 1:49 PM RAT BREEDER APTT (PTT) STAT 05/05/2022 1:49 PM RAT BREEDER PROTIME (PT) (PROTHROMBIN TIME) STAT 05/05/2022 1:49 PM RAT BREEDER POCT CREATININE STAT 05/05/2022 1:49 PM RAT BREEDER CULTURE, URINE STAT 05/05/2022 1:49 PM RAT BREEDER CMP (COMPREHENSIVE METABOLIC PANEL) STAT 05/05/2022 1:49 PM RAT BREEDER COMPLETE BLOOD COUNT (CBC) WITH DIFF STAT 05/05/2022 1:49 PM RAT BREEDER EKG 12 LEAD STAT 05/05/2022 1:45 PM RAT BREEDER documented in this encounter Results * Laceration Repair (05/05/2022 5:36 PM RAT BREEDER) Narrative Myron Akins MD - 05/05/2022 5:36 PM RAT BREEDER Myron Akins MD ? 05/05/2022 ??5:40 PM Laceration Repair Date/Time: 05/05/2022 5:36 PM Performed by: Myron Akins MD Authorized by: Myron Akins MD Consent: Verbal consent obtained. Risks and benefits: risks, benefits and alternatives were discussed Consent given by: patient Patient identity confirmed: verbally with patient Body area: head/neck Location details: right cheek Laceration length: 2 cm Foreign bodies: no foreign bodies Tendon involvement: none Nerve involvement: none Vascular damage: no Anesthesia: local infiltration Anesthesia: Local Anesthetic: lidocaine 1% without epinephrine Anesthetic total: 3 mL Sedation: Patient sedated: no Irrigation solution: saline Irrigation method: syringe Amount of cleaning: standard Debridement: none Degree of undermining: none Wound skin closure material used: 4-0 chronic gut. Number of sutures: 3 Technique: simple Approximation: close Approximation difficulty: simple Patient tolerance: patient tolerated the procedure well with no immediate complications Myron Akins MD PROCEDURE/MINOR SURGIC AL ORDERABLES Final Result * Laceration Repair (05/05/2022 5:34 PM RAT BREEDER) Narrative Myron Akins MD - 05/05/2022 5:34 PM RAT BREEDER Myron Akins MD ? 05/05/2022 ??5:40 PM Laceration Repair Date/Time: 05/05/2022 5:34 PM Performed by: Myron Akins MD Authorized by: Myron Akins MD Consent: Verbal consent obtained. Consent given by: patient Patient understanding: patient states understanding of the procedure being performed Patient identity confirmed: verbally with patient Body area: head/neck Location details: right eyebrow Laceration length: 0.5 cm Foreign bodies: no foreign bodies Tendon involvement: none Nerve involvement: none Sedation: Patient sedated: no Irrigation solution: saline Amount of cleaning: standard Debridement: none Degree of undermining: none Skin closure: Steri-Strips (3) Approximation: close Approximation difficulty: simple Patient tolerance: patient tolerated the procedure well with no immediate complications Myron Akins MD PROCEDURE/MINOR SURGIC AL ORDERABLES Final Result * CT CHEST ABDOMEN AND PELVIS W CONTRAST (05/05/2022 2:36 PM RAT BREEDER) Anatomical Region Laterality Modality Chest, Abdomen, Pelvis N/A Computed Tomography Narrative 05/05/2022 3:30 PM RAT BREEDER EXAMINATION: CT CHEST ABDOMEN AND PELVIS W CONTRAST 05/05/2022 INDICATIONS: Polytrauma, blunt trauma, patient tripped and fell and landed on face. ??Laceration to face. ??Pain and right ribs. ??Bilateral shoulder pain right greater than left. COMPARISON: None TECHNIQUE: Following the administration of intravenous contrast, helical imaging was performed through the chest abdomen and pelvis. A dose lowering technique was used for this procedure, which may include, but is not limited to, dose reduction technique(s), automated exposure control techniques, use of iterative reconstruction techniques, ??and ALARA (as low as reasonably achievable) or ALARA/IMAGE Gently techniques. FINDINGS: Chest: Cardiovascular: Atherosclerotic disease is present within the thoracic aorta with ectasia of the ascending aorta. ??No traumatic aortic injury or mediastinal hematoma. ??Significant coronary artery calcification is seen. ??Heart size is enlarged. ??There is apparent left ventricular hypertrophy. ??The pulmonary arterial tree is intact without pulmonary embolism. Pleura: No significant pleural or pericardial effusion is seen. Lymphatics: Enlargement of the left lobe of the thyroid is seen. ??Multiple bilateral complex thyroid nodules are seen. ??Given the complex appearance of the nodules and calcifications, recommend further evaluation with thyroid ultrasound. ??Less than 1 cm lymph nodes are present. ??Calcified lymph nodes are seen consistent with granulomatous disease. Lungs: There is an irregular nodular density within the left lung apex measuring 1.6 x 1.3 cm. ??This is suspicious for malignancy. ??Recommend further evaluation with CT PET. ??Atelectatic changes are seen. ??No pneumothorax is seen. ??No pulmonary contusion. ??Additional small subpleural nodule posteriorly within right upper lobe is nonspecific. ??Follow-up recommended. Abdomen and pelvis: Hepatobiliary: Mild hepatic steatosis is present. ??No discrete liver lesions are seen. ??No traumatic liver injury is identified. ??The gallbladder is absent. ??There is mild intra and extrahepatic biliary ductal dilatation likely related to prior cholecystectomy. ??The pancreas is unremarkable. Lymphatics: The spleen is not enlarged. ??Less than 1 cm lymph nodes are seen. ??No significant adenopathy. : The right adrenal gland is unremarkable. ??There is a small left adrenal nodule which is nonspecific but favored benign. ??Kidneys demonstrate symmetric enhancement. ??Cortical and parapelvic renal cysts are seen. ??No solid mass identified. ??Uterus is absent. ??No adnexal mass appreciated. ??The bladder is probably within normal limits. GI: Bowel gas pattern is nonobstructive. ??Stool is present throughout the colon. ??Borderline thickening of the distal esophagus. ??No other focal bowel abnormality seen. ??No free fluid is identified. Vascular: Atherosclerotic disease is present without evidence of aneurysm. Musculoskeletal: Degenerative changes are seen. ??No fracture or significant traumatic injury is appreciated. IMPRESSION 1. No significant acute traumatic injury within the chest, abdomen or pelvis. 2. Somewhat irregular nodular density within the left lung apex concerning for malignancy. ??Recommend further evaluation. ??CT PET could be obtained to better characterize. ??Tiny nodule subpleural posterior right upper lobe is nonspecific. ??Follow-up recommended. 3. Enlargement left lobe of the thyroid. ??There is multiple bilateral complex appearing thyroid nodules as described above. ??Recommend correlation with thyroid ultrasound. 4. Atherosclerotic disease in the aorta with ectasia of the ascending aorta measuring 4 cm. ??Significant coronary artery calcification is seen. ??Heart size is enlarged with apparent left ventricular hypertrophy. 5. Mild hepatic steatosis. 6. Cortical and parapelvic renal cysts. Electronically signed by: SISSY GORDON MD Date of Signature: ??05/05/2022 15:30:36 Procedure Note Sissy Gordon MD - 05/05/2022 EXAMINATION: CT CHEST ABDOMEN AND PELVIS W CONTRAST 05/05/2022 INDICATIONS: Polytrauma, blunt trauma, patient tripped and fell and landed on face.Laceration to face. Pain and right ribs. Bilateral shoulder pain rightgreater than left. COMPARISON: None TECHNIQUE: Following the administration of intravenous contrast, helical imaging wasperformed through the chest abdomen and pelvis. A dose lowering technique was used for this procedure, which may include,but is not limited to, dose reduction technique(s), automated exposurecontrol techniques, use of iterative reconstruction techniques, and ALARA(as low as reasonably achievable) or ALARA/IMAGE Gently techniques. FINDINGS: Chest: Cardiovascular: Atherosclerotic disease is present within the thoracicaorta with ectasia of the ascending aorta. No traumatic aortic injury ormediastinal hematoma. Significant coronary artery calcification is seen.Heart size is enlarged. There is apparent left ventricular hypertrophy.The pulmonary arterial tree is intact without pulmonary embolism. Pleura: No significant pleural or pericardial effusion is seen. Lymphatics: Enlargement of the left lobe of the thyroid is seen. Multiplebilateral complex thyroid nodules are seen. Given the complex appearanceof the nodules and calcifications, recommend further evaluation withthyroid ultrasound. Less than 1 cm lymph nodes are present. Calcifiedlymph nodes are seen consistent with granulomatous disease. Lungs: There is an irregular nodular density within the left lung apexmeasuring 1.6 x 1.3 cm. This is suspicious for malignancy. Recommendfurther evaluation with CT PET. Atelectatic changes are seen. Nopneumothorax is seen. No pulmonary contusion. Additional smallsubpleural nodule posteriorly within right upper lobe is nonspecific.Follow-up recommended. Abdomen and pelvis: Hepatobiliary: Mild hepatic steatosis is present. No discrete liverlesions are seen. No traumatic liver injury is identified. Thegallbladder is absent. There is mild intra and extrahepatic biliaryductal dilatation likely related to prior cholecystectomy. The pancreasis unremarkable. Lymphatics: The spleen is not enlarged. Less than 1 cm lymph nodes areseen. No significant adenopathy. : The right adrenal gland is unremarkable. There is a small leftadrenal nodule which is nonspecific but favored benign. Kidneysdemonstrate symmetric enhancement. Cortical and parapelvic renal cystsare seen. No solid mass identified. Uterus is absent. No adnexal massappreciated. The bladder is probably within normal limits. GI: Bowel gas pattern is nonobstructive. Stool is present throughout thecolon. Borderline thickening of the distal esophagus. No other focalbowel abnormality seen. No free fluid is identified. Vascular: Atherosclerotic disease is present without evidence ofaneurysm. Musculoskeletal: Degenerative changes are seen. No fracture orsignificant traumatic injury is appreciated. IMPRESSION 1. No significant acute traumatic injury within the chest, abdomen orpelvis. 2. Somewhat irregular nodular density within the left lung apex concerningfor malignancy. Recommend further evaluation. CT PET could be obtainedto better characterize. Tiny nodule subpleural posterior right upper lobeis nonspecific. Follow-up recommended. 3. Enlargement left lobe of the thyroid. There is multiple bilateralcomplex appearing thyroid nodules as described above. Recommendcorrelation with thyroid ultrasound. 4. Atherosclerotic disease in the aorta with ectasia of the ascendingaorta measuring 4 cm. Significant coronary artery calcification is seen.Heart size is enlarged with apparent left ventricular hypertrophy. 5. Mild hepatic steatosis. 6. Cortical and parapelvic renal cysts. Electronically signed by: SISSY GORDON MD Date of Signature: 05/05/2022 15:30:36 us Myron Akins MD IMG CT ORDERABLES Lori l Result * CT CERVICAL SPINE WO/ CONTRAST (05/05/2022 2:35 PM RAT BREEDER) Anatomical Region Laterality Modality Spine N/A Computed Tomogra phy Narrative 05/05/2022 3:08 PM RAT BREEDER EXAMINATION: CT CERVICAL SPINE WO/ CONTRAST 05/05/2022 INDICATIONS: Neck trauma (Age >= 65y) neck trauma. ??Patient tripped and fell face 1st. ??Laceration to face. ??Jaw pain. ??Pain extending from the neck into the shoulder and back COMPARISON: None TECHNIQUE: Noncontrast helical imaging was performed through the cervical spine. ??Coronal and sagittal reformats also performed. A dose lowering technique was used for this procedure, which may include, but is not limited to, dose reduction technique(s), automated exposure control techniques, use of iterative reconstruction techniques, ??and ALARA (as low as reasonably achievable) or ALARA/IMAGE Gently techniques. FINDINGS: There is no evidence of acute cervical spine fracture or significant malalignment. ??The predental space and prevertebral soft tissues are within normal limits. ??The dens and lateral masses are well aligned. ??Multilevel degenerative changes are seen. There is enlargement left lobe of the thyroid. ??Bilateral thyroid nodules are seen. ??Recommend follow-up thyroid ultrasound. ??Nodular density within the left lung apex is seen. ??See dedicated CT chest. IMPRESSION 1. No acute cervical spine fracture or significant malalignment. 2. Multilevel degenerative changes. 3. Enlargement left lobe of the thyroid. ??Bilateral thyroid nodules are seen. ??Recommend follow-up thyroid ultrasound. 4. Irregular nodular density within the left lung apex. ??See dedicated CT chest report dictated separately. Electronically signed by: SISSY GORDON MD Date of Signature: ??05/05/2022 15:08:35 Procedure Note Sissy Gordon MD - 05/05/2022 EXAMINATION: CT CERVICAL SPINE WO/ CONTRAST 05/05/2022 INDICATIONS: Neck trauma (Age >= 65y) neck trauma. Patient tripped and fell face 1st.Laceration to face. Jaw pain. Pain extending from the neck into theshoulder and back COMPARISON: None TECHNIQUE: Noncontrast helical imaging was performed through the cervical spine.Coronal and sagittal reformats also performed. A dose lowering technique was used for this procedure, which may include,but is not limited to, dose reduction technique(s), automated exposurecontrol techniques, use of iterative reconstruction techniques, and ALARA(as low as reasonably achievable) or ALARA/IMAGE Gently techniques. FINDINGS: There is no evidence of acute cervical spine fracture or significantmalalignment. The predental space and prevertebral soft tissues arewithin normal limits. The dens and lateral masses are well aligned.Multilevel degenerative changes are seen. There is enlargement left lobe of the thyroid. Bilateral thyroid nodulesare seen. Recommend follow-up thyroid ultrasound. Nodular density withinthe left lung apex is seen. See dedicated CT chest. IMPRESSION 1. No acute cervical spine fracture or significant malalignment. 2. Multilevel degenerative changes. 3. Enlargement left lobe of the thyroid. Bilateral thyroid nodules areseen. Recommend follow-up thyroid ultrasound. 4. Irregular nodular density within the left lung apex. See dedicated CTchest report dictated separately. Electronically signed by: SISSY GORDON MD Date of Signature: 05/05/2022 15:08:35 us Myron Akins MD IMG CT ORDERABLES Lori l Result * CT FACIAL BONES WO CONTRAST (05/05/2022 2:35 PM RAT BREEDER) Anatomical Region Laterality Modality Head N/A Computed Tomogra phy Narrative 05/05/2022 3:11 PM [facility] BRE[facility]ER EXAMINATION: CT FACIAL BONES WO CONTRAST 05/05/2022 INDICATIONS: Facial trauma, blunt facial trauma. ??Blunt trauma. ??Patient tripped and fell face 1st. ??Injury to right-side of face. ??Laceration. COMPARISON: CT brain from today TECHNIQUE: Noncontrast helical imaging was performed through the facial bones. ??Coronal and sagittal reformats also performed. A dose lowering technique was used for this procedure, which may include, but is not limited to, dose reduction technique(s), automated exposure control techniques, use of iterative reconstruction techniques, ??and ALARA (as low as reasonably achievable) or ALARA/IMAGE Gently techniques. FINDINGS: No definite acute facial bone fracture is seen. ??There is chronic sinus disease of the right maxillary sinus. ??Bony sclerosis and thickening is seen. ??There is mucosal thickening with calcification concerning for fungal sinusitis. ??Additional mild sinus disease is seen within the left maxillary sinus and ethmoids. ??The mastoids are clear. There is soft tissue swelling within the right face extending into the periorbital region. IMPRESSION 1. No acute facial bone fracture. 2. Soft tissue injury of the right face with small laceration and edema. ??This extends into the right periorbital region. 3. Chronic sinus disease of the right maxillary sinus. ??Bony sclerosis and thickening is seen. ??There is apparent dehiscence inferior laterally. ??There is mucosal thickening with high density concerning for fungal sinusitis. ??Additional mild sinus disease is seen within the ethmoids and left maxillary sinus. Electronically signed by: SISSY GORDON MD Date of Signature: ??05/05/2022 15:11:22 Procedure Note Sissy Gordon MD - 05/05/2022 EXAMINATION: CT FACIAL BONES WO CONTRAST 05/05/2022 INDICATIONS: Facial trauma, blunt facial trauma. Blunt trauma. Patient tripped andfell face 1st. Injury to right-side of face. Laceration. COMPARISON: CT brain from today TECHNIQUE: Noncontrast helical imaging was performed through the facial bones.Coronal and sagittal reformats also performed. A dose lowering technique was used for this procedure, which may include,but is not limited to, dose reduction technique(s), automated exposurecontrol techniques, use of iterative reconstruction techniques, and ALARA(as low as reasonably achievable) or ALARA/IMAGE Gently techniques. FINDINGS: No definite acute facial bone fracture is seen. There is chronic sinusdisease of the right maxillary sinus. Bony sclerosis and thickening isseen. There is mucosal thickening with calcification concerning forfungal sinusitis. Additional mild sinus disease is seen within the leftmaxillary sinus and ethmoids. The mastoids are clear. There is soft tissue swelling within the right face extending into theperiorbital region. IMPRESSION 1. No acute facial bone fracture. 2. Soft tissue injury of the right face with small laceration and edema.This extends into the right periorbital region. 3. Chronic sinus disease of the right maxillary sinus. Bony sclerosis andthickening is seen. There is apparent dehiscence inferior laterally.There is mucosal thickening with high density concerning for fungalsinusitis. Additional mild sinus disease is seen within the ethmoids andleft maxillary sinus. Electronically signed by: SISSY GORDON MD Date of Signature: 05/05/2022 15:11:22 us Myron Akins MD IM CT ORDERABLES Lori l Result * CT HEAD OR BRAIN WO CONTRAST (05/05/2022 2:35 PM RAT BREEDER) Anatomical Region Laterality Modality Head N/A Computed Tomogra phy Narrative 05/05/2022 3:06 PM [facility]ER EXAMINATION: CT HEAD OR BRAIN WO CONTRAST 05/05/2022 INDICATIONS: Head trauma, intracranial venous injury suspected trauma. ??Patient tripped on steps and fell face 1st. ??Laceration right face. ??Head injury. ??Pain in mouth. COMPARISON: None TECHNIQUE: Noncontrast imaging was performed through the brain. A dose lowering technique was used for this procedure, which may include, but is not limited to, dose reduction technique(s), automated exposure control techniques, use of iterative reconstruction techniques, ??and ALARA (as low as reasonably achievable) or ALARA/IMAGE Gently techniques. FINDINGS: There is no evidence of acute intracranial hemorrhage, mass effect or midline shift. ??Sulci and ventricles are within normal limits. ??Chronic small vessel ischemic and lacunar changes are present. ??Small focus of fat is seen along the falx. Chronic sinus disease is seen right maxillary sinus. ??There is some calcification present concerning for fungal sinusitis. IMPRESSION 1. No acute intracranial abnormality identified. 2. Chronic small vessel ischemic and lacunar changes. 3. Sinus disease right maxillary sinus concerning for fungal sinusitis. Electronically signed by: SISSY GORDON MD Date of Signature: ??05/05/2022 15:06:15 Procedure Note Sissy Gordon MD - 05/05/2022 EXAMINATION: CT HEAD OR BRAIN WO CONTRAST 05/05/2022 INDICATIONS: Head trauma, intracranial venous injury suspected trauma. Patient trippedon steps and fell face 1st. Laceration right face. Head injury. Pain inmouth. COMPARISON: None TECHNIQUE: Noncontrast imaging was performed through the brain. A dose lowering technique was used for this procedure, which may include,but is not limited to, dose reduction technique(s), automated exposurecontrol techniques, use of iterative reconstruction techniques, and ALARA(as low as reasonably achievable) or ALARA/IMAGE Gently techniques. FINDINGS: There is no evidence of acute intracranial hemorrhage, mass effect ormidline shift. Sulci and ventricles are within normal limits. Chronicsmall vessel ischemic and lacunar changes are present. Small focus of fatis seen along the falx. Chronic sinus disease is seen right maxillary sinus. There is somecalcification present concerning for fungal sinusitis. IMPRESSION 1. No acute intracranial abnormality identified. 2. Chronic small vessel ischemic and lacunar changes. 3. Sinus disease right maxillary sinus concerning for fungal sinusitis. Electronically signed by: SISSY GORDON MD Date of Signature: 05/05/2022 15:06:15 us Myron Akins MD IMG CT ORDERABLES Lori l Result * XR KNEE MINIMUM 4 VIEWS RIGHT (05/05/2022 2:22 PM RAT BREEDER) Anatomical Region Laterality Modality LOWER EXTREMITY, knee Right Computed R adiography Narrative 05/05/2022 2:30 PM [facility]ER EXAMINATION: XR KNEE MINIMUM 4 VIEWS RIGHT INDICATIONS: R knee pain after fall. ??81-year-old with right knee pain after fall COMPARISON: None. FINDINGS: AP lateral oblique and sunrise views of the right knee demonstrate a transverse fracture through the mid patella with involvement of the articular margin. ??Mild displacement is seen. ??Joint effusion is present. ??No other fractures identified. ??Chronic appearing density is seen adjacent to the fibular head. Mild degenerative changes are seen. ??Chondrocalcinosis is present. IMPRESSION 1. Transverse fracture mid patella involving the articular margin. ??Mild displacement is seen. ??Associated joint effusion is present. 2. Mild degenerative changes with chondrocalcinosis. Electronically signed by: SSISY GORDON MD Date of Signature: ??05/05/2022 14:30:09 Procedure Note Sissy Gordon MD - 05/05/2022 EXAMINATION: XR KNEE MINIMUM 4 VIEWS RIGHT INDICATIONS: R knee pain after fall. 81-year-old with right knee pain after fall COMPARISON: None. FINDINGS: AP lateral oblique and sunrise views of the right knee demonstrate atransverse fracture through the mid patella with involvement of thearticular margin. Mild displacement is seen. Joint effusion is present.No other fractures identified. Chronic appearing density is seen adjacentto the fibular head. Mild degenerative changes are seen. Chondrocalcinosis is present. IMPRESSION 1. Transverse fracture mid patella involving the articular margin. Milddisplacement is seen. Associated joint effusion is present. 2. Mild degenerative changes with chondrocalcinosis. Electronically signed by: SISSY GORDON MD Date of Signature: 05/05/2022 14:30:09 Myron Akins MD IMG DIAGNOSTIC ORDERAB LES Final Result * XR CHEST SINGLE VIEW PORTABLE (05/05/2022 1:53 PM RAT BREEDER) Anatomical Region Laterality Modality Chest N/A Computed Radiogr aphy Narrative 05/05/2022 1:54 PM R[facility]ER EXAMINATION: XR CHEST SINGLE VIEW PORTABLE INDICATIONS: fall. ??81-year-old with fall patient tripped and fell and landed on face. ??Pain right ribcage in chest. COMPARISON: None. FINDINGS: The cardiac silhouette size is within normal limits. No focal consolidation edema or pleural effusion is identified. Calcified granulomas seen within the right lung base. ??No definite rib fracture appreciated. ??Further evaluation as clinically indicated. IMPRESSION No definite acute cardiopulmonary disease. ??Further evaluation as clinically indicated. Electronically signed by: SISSY GORDON MD Date of Signature: ??05/05/2022 13:54:10 Procedure Note Sissy Gordon MD - 05/05/2022 EXAMINATION: XR CHEST SINGLE VIEW PORTABLE INDICATIONS: fall. 81-year-old with fall patient tripped and fell and landed on face.Pain right ribcage in chest. COMPARISON: None. FINDINGS: The cardiac silhouette size is within normal limits. No focalconsolidation edema or pleural effusion is identified. Calcifiedgranulomas seen within the right lung base. No definite rib fractureappreciated. Further evaluation as clinically indicated. IMPRESSION No definite acute cardiopulmonary disease. Further evaluation asclinically indicated. Electronically signed by: SISSY GORDON MD Date of Signature: 05/05/2022 13:54:10 Myron Akins MD IMG DIAGNOSTIC ORDERAB LES Final Result * Culture, Urine (05/05/2022 1:49 PM RAT BREEDER) CULTURE RESULTS ESCHERICHIA COLI DMH VITEK II 05/07/2022 7:44 AM RAT BREEDER [facility] Urine URINE SPECIMEN COLLECTION, CLEAN CATCH / Unknown Non-Phlebotomy Collection / Unknown 05/05/2022 1:49 PM RAT BREEDER 05/05/2022 1:55 PM RAT BREEDER Narrative Organism Antibiotic Method Susceptibility Escherichia coli Levofloxacin DMH VITEK II <=0.12 mcg/ml: Susceptible Escherichia coli Nitrofurantoin DMH VITEK II <=16 mcg/ml: Susceptible Escherichia coli Trimeth/Sulfamethoxazole DMH VITEK II <=20 mcg/ml: Susceptible Escherichia coli Ampicillin/sulbactam DMH VITEK II 4 mcg/ml: Susceptible Escherichia coli Cefazolin DMH VITEK II <=4 mcg/ml: Susceptible Escherichia coli Cefoxitin DMH VITEK II <=4 mcg/ml: Susceptible Escherichia coli Gentamicin DMH VITEK II <=1 mcg/ml: Susceptible Myron Akins MD MICROBIOLOGY - GENERAL ORDERABLES Final Result [address] [address] * POCT Creatinine (05/05/2022 1:49 PM RAT BREEDER) CREATININE - POCT 0.80 0.4 - 1.1 mg/dL 05/05/2022 2:01 PM RAT BREEDER [facility] Blood Venipuncture / Unknown 05/05/2022 1:49 PM RAT BREEDER 05/05/2022 2:01 PM RAT BREEDER us Myron Akins MD POINT OF CARE TESTING Final Result [facility] [address] [place] [address] * CBC with Auto Differential (05/05/2022 1:49 PM RAT BREEDER) WBC 7.68 3.90 - 11.00 10(3)/mcL 05/05/2022 1:59 PM [facility] RBC 4.79 3.80 - 5.20 10(6)/mcL 05/05/2022 1:59 PM [facility] HEMOGLOBIN (HGB) 15.5 11.7 - 16.0 g/dL 05/05/2022 1:59 PM [facility] HEMATOCRIT (HCT) 46.2 34.9 - 46.9 % 05/05/2022 1:59 PM [facility] MCV 96.5 80.0 - 100.0 fL 05/05/2022 1:59 PM [facility] MCH 32.4 26.5 - 33.9 pg 05/05/2022 1:59 PM [facility] MCHC 33.5 31.5 - 36.0 g/dL 05/05/2022 1:59 PM [facility] PLATELET COUNT 161 140 - 445 10(3)/mcL 05/05/2022 1:59 PM [facility] MPV 12.7 >=0.0 fL 05/05/2022 1:59 PM [facility] RDW 13.0 12.0 - 15.0 % 05/05/2022 1:59 PM [facility] NEUTROPHILS 62.3 % 05/05/2022 1:59 PM [facility] LYMPHOCYTES 29.2 % 05/05/2022 1:59 PM [facility] MONOCYTES 5.9 % 05/05/2022 1:59 PM [facility] EOSINOPHILS 1.6 % 05/05/2022 1:59 PM [facility] IMMATURE GRANULOCYTE % 0.5 % 05/05/2022 1:59 PM [facility] BASOPHILS 0.5 % 05/05/2022 1:59 PM [facility] ABSOLUTE NEUTROPHILS 4.79 1.40 - 7.30 10(3)/mcL 05/05/2022 1:59 PM [facility] ABSOLUTE LYMPHOCYTES 2.24 1.30 - 2.90 10(3)/mcL 05/05/2022 1:59 PM [facility] ABSOLUTE MONOCYTES 0.45 0.10 - 0.80 10(3)/mcL 05/05/2022 1:59 PM [facility] ABSOLUTE EOSINOPHIL 0.12 0.00 - 0.30 10(3)/[facility] 05/05/2022 1:59 PM [facility] ABSOLUTE BASOPHILS 0.04 0.00 - 0.10 10(3)/[facility] 05/05/2022 1:59 PM [facility] ABSOLUTE IMMATURE GRANULOCYTE 0.04 0.00 - 0.10 10 (3) mcL. 05/05/2022 1:59 PM [facility] NRBC PER 100 WBC 0.0 0.0 - 0.0 % 05/05/2022 1:59 PM [facility] ABSOLUTE NRBC 0.00 10 (3) mcL. 05/05/2022 1:59 PM [facility] Blood Venipuncture / Unknown 05/05/2022 1:49 PM RAT BREEDER 05/05/2022 1:55 PM RAT BREEDER us Myron Akins MD HEMATOLOGY ORDERABLES Final Result [address] [address] * APTT (PTT) (05/05/2022 1:49 PM RAT BREEDER) PTT 23 23 - 35 sec 05/05/2022 2:10 PM [facility] Comment:Reference Ranges hav e been updated. Blood Venipuncture / Unknown 05/05/2022 1:49 PM RAT BREEDER 05/05/2022 1:55 PM RAT BREEDER Myron Akins MD HEMATOLOGY ORDERABLES Final Result Performing Organization Address [facility]/ZIP Co de Phone Number [address] [address] * (ABNORMAL) PROTIME (PT) (PROTHROMBIN TIME) (05/05/2022 1:49 PM RAT BREEDER) PROTIME-PATIENT 14.6(H) 11.5 - 14.3 sec 05/05/2022 2:08 PM [facility] Comment: Reference Ranges have been updated. INR 1.2(H) 0.9 - 1.1 05/05/2022 2:08 PM [facility] Comment: Reference Ranges have been updated. Recommended Ranges: ?? Standard oral anticoagulant ? INR: ?2.0 - 3.0 ?? High dose therapy ? INR: ?2.5 - 3.5 Blood Venipuncture / Unknown 05/05/2022 1:49 PM RAT BREEDER 05/05/2022 1:55 PM RAT BREEDER Myron Akins MD HEMATOLOGY ORDERABLES Final Result Performing Organization Address [facility] Co de Phone Number [address] [address] * (ABNORMAL) Urinalysis Microscopic If Indicated (05/05/2022 1:49 PM RAT BREEDER) [facility] SPECIFIC GRAVITY 1.008 1.003 - 1.035 05/05/2022 2:04 PM [facility] URINE PH 6.0 5.0 - 8.0 05/05/2022 2:04 PM [facility] WBC ESTERASE Trace(A) Negative 05/05/2022 2:04 PM [facility] NITRITE Negative Negative 05/05/2022 2:04 PM [facility] PROTEIN, RANDOM URINE Negative Negative 05/05/2022 2:04 PM [facility] URINE GLUCOSE, QUAL Negative Negative 05/05/2022 2:04 PM [facility] URINE KETONES Negative Negative 05/05/2022 2:04 PM [facility] UROBILINOGEN <2.0 <2.0 mg/dL 05/05/2022 2:04 PM [facility] URINE BILIRUBIN Negative Negative 3 2:04 PM [facility] URINE BLOOD Negative Negative erick/ul 05/05/2022 2:04 PM [facility] URINALYSIS COLOR Yellow Yellow 05/05/19 2:04 PM [facility] URINALYSIS CLARITY Clear Clear 05/05/2022 2:04 PM [facility] WBC (Urine) 0-5 0-5, Negative /hpf 05/05/2022 2:04 PM [facility] BACTERIA, URINE Many(A) None, Absent /hpf 05/05/2022 2:04 PM [facility] URINE SQUAMOUS EPITHELIAL CELLS Small amount(A) Negative /HPF 05/05/2022 2:04 PM [facility] DMH RENAL EPI CELLS 05/05/2022 2:04 PM [facility] URINE SPERM 05/05/2022 2:04 PM [facility] URINE TRICHOMONAS 05/05/2022 2:04 PM [facility] URINE YEAST 05/05/2022 2:04 PM [facility] Urine URINE SPECIMEN COLLECTION, CLEAN CATCH / Unknown Non-Phlebotomy Collection / Unknown 05/05/2022 1:49 PM RAT BREEDER 05/05/2022 1:55 PM RAT BREEDER Narrative [facility] - 05/05/2022 2:04 PM RAT BREEDER Urine culture has been ordered. us Myron Akins MD URINE ORDERABLES Final Result [facility] [address] [place] [address] * (ABNORMAL) CMP (Comprehensive Metabolic Panel) (05/05/2022 1:49 PM RAT BREEDER) SODIUM 144 133 - 145 mmol/L 05/05/2022 2:16 PM [facility] POTASSIUM 4.4 3.5 - 5.1 mmol/L 05/05/2022 2:16 PM [facility] CHLORIDE 109(H) 96 - 108 mmol/L 05/05/2022 2:16 PM [facility] CO2, VENOUS 29 21 - 32 mmol/L 05/05/2022 2:16 PM [facility] ANION GAP 10.4 10.0 - 20.0 mmol/L 05/05/2022 2:16 PM [facility] GLUCOSE 111(H) 83 - 110 mg/dL 05/05/2022 2:16 PM [facility] BUN 21(H) 6 - 19 mg/dL 05/05/2022 2:16 PM [facility] CREATININE, BLOOD 0.70 0.40 - 1.10 mg/dL 05/05/2022 2:16 PM [facility] BUN/CREATININE RATIO 30(H) 12 - 20 ratio 05/05/2022 2:16 PM [facility] TOTAL PROTEIN 6.8 6.0 - 8.2 g/dL 05/05/2022 2:16 PM [facility] ALBUMIN 3.9 3.4 - 4.8 g/dL 05/05/2022 2:16 PM [facility] CALCIUM 9.2 8.8 - 10.0 mg/dL 05/05/2022 2:16 PM [facility] T BILI 0.5 0.0 - 1.0 mg/dL 05/05/2022 2:16 PM [facility] SGOT (AST) 17 0 - 37 U/L 05/05/2022 2:16 PM [facility] SGPT (ALT) 22 12 - 45 U/L 05/05/2022 2:16 PM [facility] ALKALINE PHOSPHATASE 64 39 - 117 U/L 05/05/2022 2:16 PM [facility] GFR, ESTIMATED 86 05/05/2022 2:16 PM [facility] Comment: This eGFR is calculated using 2020 CKD-EPI Creatinine equation without race modifier based on the NKF-ASN task force recommendations. -In most healthy people, the normal GFR is 90 mL/min/1.73 m2 or higher. -A result of 60-89 mL/min/1.73 m2 without kidney damage may be normal in some people (such as the elderly, infants) -A result of 60-89 mL/min/1.73 m2 for three months or more, along with kidney damage (such as persistent protein in the urine), means the person has early kidney disease. -When GFR is <60 for three months or more, chronic kidney disease (CKD) is present Blood Venipuncture / Unknown 05/05/2022 1:49 PM RAT BREEDER 05/05/2022 1:55 PM RAT BREEDER Narrative [facility] - 05/05/2022 2:16 PM RAT BREEDER Venipuncture should occur prior to sulfasalazine and/or sulfapyridine administration due to the potential for falsely depressed results for ALT and AST. ??Glucose can be falsely depressed after administration of sulfasalazine, and falsely elevated with administration of sulfapyridine. us Myron Akins MD CHEMISTRY ORDERABLES F inal Result [address] [address] * EKG 12 LEAD (05/05/2022 1:45 PM RAT BREEDER) Ventricular Rate 84 BPM EXTERNAL EKG Atrial Rate 84 BPM EXTERNAL EKG P-R Interval 172 ms EXTERNAL EKG QRS Duration 100 ms EXTERNAL EKG Q-T Duration 386 ms EXTERNAL EKG QTC CALCULATION 456 ms EXTERNAL EKG P [place] 48 degrees EXTERNAL EKG R [place] -31 degrees EXTERNAL EKG T [place] 33 degrees EXTERNAL EKG 05/05/2022 1:45 PM RAT BREEDER 05/06/2022 12:26 PM RAT BREEDER Impressions EXTERNAL EKG - 05/06/2022 12:26 PM RAT BREEDER Normal sinus rhythmLeft axis deviation nonspecific T-wave changesMinimal voltage criteria for LVH, may be normal variantAbnormal ECGNo previous ECGs availableConfirmed by ROBERT PACHECO ([id number]) on 05/06/2022 12:26:34 PM Narrative Procedure Note Robert Pacheco MD - 05/06/2022 IMPRESSION: Normal sinus rhythmLeft axis deviation nonspecific T-wave changesMinimalvoltage criteria for LVH, may be normal variantAbnormal ECGNo previousECGs availableConfirmed by ROBERT PACHECO ([id number]) on 05/06/2022 12:26:34 PM us Myron Akins MD IMG ECG ORDERABLES Fin al Result EXTERNAL EKG documented in this encounter Visit Diagnoses Diagnosis Closed nondisplaced fracture of right patella, unspecified fracture morphology, initial encounter- Primary Fall down stairs, initial encounter Chest pain, unspecified type Facial laceration, initial encounter documented in this encounter Administered Medications Inactive Administered Medications - up to 3 most recent administrations Medication Order MAR Action Action Date Dose Rate Site fentaNYL (PF) (SUBLIMAZE) injection 50 mcg 50 mcg, Intravenous, ONCE, 1 dose, On 05/05/22 at 1400 Given 05/05/2022 1:57 PM RAT BREEDER 50 mcg fentaNYL (PF) (SUBLIMAZE) injection 50 mcg 50 mcg, Intravenous, ONCE, 1 dose, On 05/05/22 at 1530 Given 05/05/2022 3:22 PM RAT BREEDER 50 mcg Iohexol SOLN 200 mL 200 mL, Intravenous, ONCE, 1 dose, On 05/05/22 at 1500 Given 05/05/2022 3:00 PM RAT BREEDER 144 mL ondansetron (ZOFRAN) injection 4 mg 4 mg, Intravenous, ONCE, 1 dose, On 05/05/22 at 1400 Given 05/05/2022 1:57 PM RAT BREEDER 4 mg sodium chloride 0.9 % 500 mL IV bolus Intravenous, ONCE, 1 dose, On 05/05/22 at 1400, Administer over 1 Hours New Bag 05/05/2022 1:58 PM RAT BREEDER 500 mL/ hr documented in this encounter Active and Recently Administered Medications Times are shown in RAT BREEDER. Scheduled Medication Order 05/03/2022 05/04/2022 05/05/2022 fentaNYL (PF) (SUBLIMAZE) injection 50 mcg (COMPLETED) 50 mcg, Intravenous, ONCE, 1 dose, On 05/05/22 at 1400 1357 (Given - Provid er: Sidney Cruz RN) fentaNYL (PF) (SUBLIMAZE) injection 50 mcg (COMPLETED) 50 mcg, Intravenous, ONCE, 1 dose, On 05/05/22 at 1530 1522 (Given - Provid er: Sidney Cruz RN) Iohexol SOLN 200 mL (COMPLETED) 200 mL, Intravenous, ONCE, 1 dose, On 05/05/22 at 1500 1500 (Given - Provid er: Jackelin Martinez, RTR) lidocaine 1 % injection 5 mL 5 mL, Injection, ONCE, 1 dose, On 05/05/22 at 1630 1630 (Due) ondansetron (ZOFRAN) injection 4 mg (COMPLETED) 4 mg, Intravenous, ONCE, 1 dose, On 05/05/22 at 1400 1357 (Given - Provid er: Sidney Cruz RN) sodium chloride 0.9 % 500 mL IV bolus (COMPLETED) Intravenous, ONCE, 1 dose, On 05/05/22 at 1400, Administer over 1 Hours 1358 (New Bag - Prov ider: Sidney Cruz RN)1545 (Stopped - Provider: Sidney Cruz RN) documented in this encounter Care Teams Marketing Specialist Relationship Specialty Start Date End Date Keegan Farah MD PCP - General Internal Medicine 05/05/22 documented as of this encounter
--- OUTSIDE RECORDS SUMMARY | 2024-04-04 14:29 | XMS_ITS | Data Portability ---
Author Organization [place] [employer], Main Office Address [address] [place] [address] Care Team Providers Care Assembler Tractor Name Role Phone SHAAN FARAH Primary Care Provider [phone] SHAAN FARAH Referring Provider Assessment Encounter Date Assessment Date Assessment LastModified by Organization Details LastModified Time 02/14/2023 02/14/2023 HPI: Patient returns. She is here this time for evaluation of her left knee pain. This pain started spontaneously in November. She does not recall any injury or trauma. She does not recall any significant episode where she feels the pain started. She feels that she just woke up 1 morning and started having pain in the knee. It has progressively gotten little bit worse. Prior to this she would have some minor discomfort in the knee but always very tolerable. Most the pain she feels over the medial aspect of the knee particularly with weight-bearing. She has been taking Tylenol and Aleve on a regular basis. She does not feel this is helping much. Physical exam: 82-year-old female alert. She walks with a moderate limp. She has a epyx-di-vtsfmylt effusion in the left knee. Range of motion is from 3-135 degrees. Hip range of motion is full without discomfort. She has moderate tenderness over the medial joint line as well as moderate tenderness over the medial tibial plateau at the pes bursa. 2+ dorsalis pedis pulse. No increased swelling in either lower extremity. No lateral joint line tenderness. Minimal pain with patellofemoral grind. Impression: 82-year-old female who has moderately severe medial compartment osteoarthritis in the left knee. She has had a significant increase of her pain in the last 2 months. I did discuss with her the x-ray findings. She is also tender over the medial tibial plateau. This could be pes bursitis but it could also represent bone bruising of the medial tibial plateau due to the arthritic changes in the knee. I discussed options with her. One option is to try cortisone injection into the joint to see if there is some improvement of her symptoms. She declined this. She has had a cortisone injection in her other knee in the past and she remembers it being extremely painful and she thoroughly declined. I did recommend highly that she use a walker for the next 2 weeks and be partial weight-bearing. If she is developing bony edema this well improve her symptoms by being partial weight-bearing. She does have a walker at home. She is comfortable with continuing with the Tylenol and Aleve. I did recommend that she decrease activities as much as possible and stay off the leg to allow things to quiet down some and she is going to do that. We will see her back in 2 weeks for re-evaluation. 20 minutes was spent in treatment patient more than half of this in [id number] conversation edu Not available 02/14/2023 16:02:56 02/28/2023 02/28/2023 HPI: Patient returns. She is here for follow-up of her left knee pain. She was using the walker for the last 2 weeks. Given his overweight off the knee. It has improved dramatically. She is able use a cane now and does not really notice much symptoms in the medial aspect of the knee. She has noted that her patella is irritable and I think this is probably because when she was using the walker and being partial weight-bearing she had her knee flexed which would over stress the patellofemoral joint. Overall she feels she is making excellent improvement. She is able to put her weight down and having minimal to no discomfort in the knee at this point. Physical exam: Patient's knee has no effusion in it. She has [id number]-[id number] pain with patellofemoral grind. She still has some mild tenderness over the medial tibial plateau. No lateral joint line tenderness. Hip range of motion causes no discomfort. Impression: Patient's knee pain is improving. I do think she has most likely developed being some bony edema in the medial tibial plateau from overuse. It is improving. It is still somewhat tender to palpation on physical exam and I recommended that she still cut back on activities to allow this continue to improve. We also talked about her walking and gait. She needs to make sure that she is walking heel-toe as this will take the stress off the patellofemoral joint hopefully quiet down the symptoms from that as well. Overall she is making good improvement is happy with the way the knee is feeling. If things worsen or change she will call otherwise see her back as needed. Minutes was spent in treatment patient more than half of this in [id number] conversation [email or web address] Not available 02/28/2023 09:11:49 Plan of Treatment Reminders Order Date Submit Date Provider Last Modified By Organization Details Last Modified Time Details Appointments Any 15 2024 09:00A M Shaan Farah MD Not available Not available Not available Lab vitamin D, 25-hydrox y, total, serum 2023 [facility] ([facility]), [address] [place], [address], 01/22/2024 21:21:44 CMP, serum or plasma 2023 [facility] ([facility]), [address] [place], [address], 01/22/2024 20:40:34 CBC w/ auto diff 2023 [facility] ([facility]), [address] [place], [address], 01/22/2024 18:39:24 lipid panel, serum 2023 [facility] ([facility]), [address] [place], [address], 01/22/2024 20:40:39 Referral None recorded. Procedures None recorded. Surgeries None recorded. Imaging XR, knee 2022 023 [email or web address] [id number], [facility], [place], [address], 02/14/2023 16:05:30 Medication Orders trazodone 50 mg tablet 2023 024 [id number], [address], [place], [place], [id number], 09/18/2023 12:06:38 Anusol-HC 2.5 % topical cream with perineal applicato r 2023 024 [id number], [address], [place], [place], [id number], 09/18/2023 10:27:16 Patient TargetsNo targets recorded. Patient Instructions Encounter Date Encounter Id Patient Instructions Last Modified By Organization Details Last Modified Time 05/17/2023 [id number] [email or web address] 1 Not available 05/17/2023 11:09:38 09/18/2023 [id number] dementia rating scale-2* Not available 09/18/2023 12:01:25 alcohol misuse* Not available 09/18/2023 12:01:24 depression screening* Not available 09/18/2023 12:01:24 multi-dimensiona l health assessment questionnaire* [email or web address] Not available 09/18/2023 12:01:24 Personalized Health Plan and Screening Recommendations Advance Directives - Do you have one? Yes Advance Directives - Do we have your advance directive on file in your health record? Primary Prevention/Interven tion (prevents or decreases the chance of common diseases from occurring) Smoking Risk: Non Smoker Alcohol Misuse Screening: Negative Weight: Appropriate Physical activity: Nutrition: Good Average Fall Risk (screened today): Low Vaccines Pneumococcal: Ordered Recommended today Recommended today, but you have declined No further needed Influenza: Chronic Disease Risks Stroke: Low Risk Intermediate Risk I have no recommendations Act laura diagnosis, Continue current treatment plan Heart Attack: Low risk Intermediate Risk I have no recommendations Act laura diagnosis, Continue current treatment plan Clogging of the Arteries: Low risk Intermediate Risk I have no recommendations Act laura diagnosis, Continue current treatment plan Diabetes: Low Risk I have no recommendations Secondary Prevention/Interven tion (detects treatable diseases before they may cause symptoms, disability, or ) Breast Cancer Screening with mammogram: Cervical/Uterine/Ov akanksha Cancer Screening: Osteoporosis Screening: Date Screening Last Performed: Colon Cancer Screening: Colonoscopy Date Screening Last Performed: Eye Disease Screening: Dementia Risk: Low I have no recommendations Depression Screening: Negative [email or web address] Not available 09/18/2023 10:43:17 Reason for Referral None Reported. Results Created Date Observation Date Name Description Value Unit Range Abnormal Flag Note LastModifiedBy Organization Detail LastModifiedTime 01/16/2001/15/2023 CBC/C OMPLE TE BLD COUNT W/DIF F white blood cells 5.9 x10'3 /uL 4.2-10 .8 Not Available [facility] (Lab) [address] [place], [address], 01/15/2023 19:28:32 01/16/2001/15/2023 CBC/C OMPLE TE BLD COUNT W/DIF F red blood cells 4.50 x10'6 /uL 3.80-5 .20 Not Available [facility] (Lab) [address] [place], [address], 01/15/2023 19:28:32 01/16/20 23 01/15/2023 CBC/C OMPLE TE BLD COUNT W/DIF F hemoglobin 14.4 g/dL 12.0-1 5.6 Not Available [facility] (Lab) [address] [place], [address], 01/15/2023 19:28:32 01/16/20 23 01/15/2023 CBC/C OMPLE TE BLD COUNT W/DIF F hematocrit 45.5 % 35.7-4 5.7 Not Available [facility] (Lab) [address] [place], [address], 01/15/2023 19:28:32 01/16/20 23 01/15/2023 CBC/C OMPLE TE BLD COUNT W/DIF F mean red cell volume 101.1 fL 82.0-9 9.0 high Not Available [facility] (Lab) [address] [place], [address], 01/15/2023 19:28:32 01/16/20 23 01/15/2023 CBC/C OMPLE TE BLD COUNT W/DIF F mean red cell hemoglobin 32.0 pg 27.0-3 3.0 Not Available [facility] (Lab) [address] [place], [address], 01/15/2023 19:28:32 01/16/20 23 01/15/2023 CBC/C OMPLE TE BLD COUNT W/DIF F mean RBC HGB concentratio n 31.6 g/dL 31.0-3 6.0 Not Available [facility] (Lab) [address] [place], [address], 01/15/2023 19:28:32 01/16/20 23 01/15/2023 CBC/C OMPLE TE BLD COUNT W/DIF F red cell distribution width 13.7 % 11.8-1 5.5 Not Available [facility] (Lab) [address] [place], [address], 01/15/2023 19:28:32 01/16/20 23 01/15/2023 CBC/C OMPLE TE BLD COUNT W/DIF F platelets 175 x10'3 /uL 150-40 0 Not Available [facility] (Lab) [address] [place], [address], 01/15/2023 19:28:32 01/16/20 23 01/15/2023 CBC/C OMPLE TE BLD COUNT W/DIF F neutrophils 43.6 % 39.0-7 2.0 Not Available [facility] (Lab) [address] [place], [address], 01/15/2023 19:28:32 01/16/20 23 01/15/2023 CBC/C OMPLE TE BLD COUNT W/DIF F lymphocytes 43.6 % 16.0-4 7.0 Not Available [facility] (Lab) [address] [place], [address], 01/15/2023 19:28:32 01/16/20 23 01/15/2023 CBC/C OMPLE TE BLD COUNT W/DIF F monocytes 7.6 % 5.0-12 .0 Not Available [facility] (Lab) [address] [place], [address], 01/15/2023 19:28:32 01/16/2001/15/2023 CBC/C OMPLE TE BLD COUNT W/DIF F eosinophils 4.1 % 1.0-7. 0 Not Available [facility] (Lab) [address] [place], [address], 01/15/2023 19:28:32 01/16/2001/15/2023 CBC/C OMPLE TE BLD COUNT W/DIF F basophils 0.8 % 0.0-2. 0 Not Available [facility] (Lab) [address] [place], [address], 01/15/2023 19:28:32 01/16/2001/15/2023 CBC/C OMPLE TE BLD COUNT W/DIF F immature granulocytes 0.3 % 0.00-0 .50 Not Available [facility] (Lab) [address] [place], [address], 01/15/2023 19:28:32 01/16/20 23 01/15/2023 CBC/C OMPLE TE BLD COUNT W/DIF F neutrophils, absolute count 2.56 x10'3 /uL 1.5-8. 0 Not Available [facility] (Lab) [address] [place], [address], 01/15/2023 19:28:32 01/16/20 23 01/15/2023 CBC/C OMPLE TE BLD COUNT W/DIF F lymphocytes, absolute count 2.57 x10'3 /uL 1.07-3 .43 Not Available [facility] (Lab) [address] [place], [address], 01/15/2023 19:28:32 01/16/20 23 01/15/2023 CBC/C OMPLE TE BLD COUNT W/DIF F monocytes, absolute count 0.45 x10'3 /uL 0.29-0 .99 Not Available [facility] (Lab) [address] [place], [address], 01/15/2023 19:28:32 01/16/2001/15/2023 CBC/C OMPLE TE BLD COUNT W/DIF F eosinophils, absolute count 0.24 x10'3 /uL 0.02-0 .53 Not Available [facility] (Lab) [address] [place], [address], 01/15/2023 19:28:32 01/16/20 23 01/15/2023 CBC/C OMPLE TE BLD COUNT W/DIF F basophils, absolute count 0.05 x10'3 /uL 0.01-0 .08 Not Available [facility] (Lab) [address] [place], [address], 01/15/2023 19:28:32 01/16/2001/15/2023 CBC/C OMPLE TE BLD COUNT W/DIF F immature granulocytes ,absolute 0.02 x10'3 /uL 0.00-0 .05 Not Available [facility] (Lab) [address] [place], [address], 01/15/2023 19:28:32 01/16/20 23 01/15/2023 CBC/C OMPLE TE BLD COUNT W/DIF F nucleated red blood cells 0.0 % -0 Not Available [facility] (Lab) [address] [place], [address], 01/15/2023 19:28:32 01/16/2001/15/2023 CBC/C OMPLE TE BLD COUNT W/DIF F NRBC# 0.00 x10'3 /uL Not Available [facility] (Lab) [address] [place], [address], 01/15/2023 19:28:32 01/16/20 23 01/15/2023 COMPR EHENS LAURA METAB OLIC PANEL sodium 140 mmol/ L 137-14 5 Not Available [facility] (Lab) [address] [place], [address], 01/15/2023 19:58:42 01/16/2001/15/2023 COMPR EHENS LAURA METAB OLIC PANEL potassium 4.3 mmol/ L 3.5-5. 1 Not Available [facility] (Lab) [address] [place], [address], 01/15/2023 19:58:42 01/16/2001/15/2023 COMPR EHENS LAURA METAB OLIC PANEL chloride 103 mmol/ L 98-107 Not Available [facility] (Lab) [address] [place], [address], 01/15/2023 19:58:42 01/16/20 23 01/15/2023 COMPR EHENS LAURA METAB OLIC PANEL carbon dioxide 28 mmol/ L 22-30 Not Available [facility] (Lab) [address] [place], [address], 01/15/2023 19:58:42 01/16/20 23 01/15/2023 COMPR EHENS LAURA METAB OLIC PANEL anion gap 13.3 mmol/ L 14-22 low Not Available [facility] (Lab) [address] [place], [address], 01/15/2023 19:58:42 01/16/20 23 01/15/2023 COMPR EHENS LAURA METAB OLIC PANEL glucose 91 mg/dL 70-99 Not Available [facility] (Lab) [address] [place], [address], 01/15/2023 19:58:42 01/16/20 23 01/15/2023 COMPR EHENS LAURA METAB OLIC PANEL BUN 19 mg/dL 8-19 Not Available [facility] (Lab) [address] [place], [address], 01/15/2023 19:58:42 01/16/2001/15/2023 COMPR EHENS LAURA METAB OLIC PANEL creatinine 0.79 mg/dL 0.66-1 .25 Not Available [facility] (Lab) [address] [place], [address], 01/15/2023 19:58:42 01/16/2001/15/2023 COMPR EHENS LAURA METAB OLIC PANEL GFR >60 Refer ence Range : [place] GFR Healt hy Adult : >60 mL/mi n/1.7 3 m2 Chron ic Kidne y Disea se: 15-60 mL/mi n/1.7 3 m2 Kidne y Failu re: <15/m L/min /1.73 m2 www.n iddk. nih.g ov The MDRD study equat ion has not been valid ated in child bebe <18 years of age; pregn ant women ; the elder ly >85 years of age; or in some racia l or ethni c subgr oups, such as [employer] n[employer]. Outsi de the valid ated irwin eters , estim ated GFR is less accur ate, requi ring clini demian judgm ent on a case- by-ca se basis . Clini demian inter preta tion for other races and ages must be made by the clini salo. The MDRD study equat ion has not been valid ated for the evalu ation of serum creat inine relat ed to nutri rasheed l statu s or medic ation usage . For perso ns <18 years of age, a pedia tric GFR calcu lator is avail able on the [facility] websi te: https :[email or web address] lagos.antonieta rg/pr ofess ional s/kdo qi/gf r_cal culat or Not Available [facility] (Lab) [address] [place], [address], 01/15/2023 19:58:42 01/16/20 23 01/15/2023 COMPR EHENS LAURA METAB OLIC PANEL alkaline phosphatase 63 U/L 38-126 Not Available [facility] (Lab) [address] [place], [address], 01/15/2023 19:58:42 01/16/2001/15/2023 COMPR EHENS LAURA METAB OLIC PANEL alanine aminotransfe rase 17 U/L 0-35 Not Available [facility] (Lab) [address] [place], [address], 01/15/2023 19:58:42 01/16/2001/15/2023 COMPR EHENS LAURA METAB OLIC PANEL aspartate aminotransfe rase 24 U/L 15-37 Not Available [facility] (Lab) [address] [place], [address], 01/15/2023 19:58:42 01/16/20 23 01/15/2023 COMPR EHENS LAURA METAB OLIC PANEL bilirubin, total 0.50 mg/dL 0.20-1 .30 Not Available [facility] (Lab) [address] [place], [address], 01/15/2023 19:58:42 01/16/20 23 01/15/2023 COMPR EHENS LAURA METAB OLIC PANEL calcium 9.3 mg/dL 8.4-10 .2 Not Available [facility] (Lab) [address] [place], [address], 01/15/2023 19:58:42 01/16/20 23 01/15/2023 COMPR EHENS LAURA METAB OLIC PANEL total protein 6.4 g/dL 6.3-8. 2 Not Available [facility] (Lab) [address] [place], [address], 01/15/2023 19:58:42 01/16/2001/15/2023 COMPR EHENS LAURA METAB OLIC PANEL albumin 4.1 g/dL 3.0-4. 4 Not Available [facility] (Lab) [address] [place], [address], 01/15/2023 19:58:42 01/16/2001/15/2023 COMPR EHENS LAURA METAB OLIC PANEL globulin 2.3 g/dL 2.6-4. 2 low Not Available [facility] (Lab) [address] [place], [address], 01/15/2023 19:58:42 01/16/2001/15/2023 COMPR EHENS LAURA METAB OLIC PANEL A/G ratio 1.8 ratio 1.0-2. 0 Not Available [facility] (Lab) [address] [place], [address], 01/15/2023 19:58:42 01/16/2001/15/2023 LIPID PANEL cholesterol 167 mg/dL 140-19 9 NIH DAYANA NSUS RECOM MENDA TION FOR MELANY STERO L: ADULT CHILD LOW RISK: <200 <170 BORDE RLINE : <200- 239 ----- HIGH RISK: >240 >200 Not Available [facility] (Lab) [address] [place], [address], 01/15/2023 19:58:53 01/16/2001/15/2023 LIPID PANEL triglyceride s 206 mg/dL 0-150 high NIH DAYANA NSUS REPOR T RECOM MENDA TION FOR TRIGL YCERI TRICIA: ADULT CHILD LOW RISK: <150 ----- BODER LINE: 150-1 99 ----- HIGH RISK: >200 ----- Not Available [facility] (Lab) [address] [place], [address], 01/15/2023 19:58:53 01/16/2001/15/2023 LIPID PANEL HDL cholesterol 48 mg/dL 40- Not Available [facility] (Lab) [address] [place], [address], 01/15/2023 19:58:53 01/16/2001/15/2023 LIPID PANEL LDL cholesterol, calculated 78 mg/dL 0-130 NIH DAYANA NSUS REPOR T RECOM MENDA TIONS FOR LDL: ADULT CHILD LOW RISK <130 <110 (OPTI MAL LDL) <100 ----- BORDE RLINE : 130-1 59 ----- HIGH RISK: >160 >130 A TRIGL YCERI DE RESUL T >400 INVAL IDATE S THE CALCU LATIO N FOR LDL FRACT IONAT ION - THE LDL RESUL T WILL NOT BE REPOR EDWARD. Not Available [facility] (Lab) [address] [place], [address], 01/15/2023 19:58:53 01/16/2001/15/2023 VITAM IN D 25-HY DROXY [id number] 46.7 NG/mL 30-100 Vitam in D Statu s: Defic ient: <20 ng/mL Insuf ficie nt: 20-29 ng/mL Suffi cient : 30-10 0 ng/mL Not Available [facility] (Lab) [address] [place], [address], 01/15/2023 20:30:32 01/22/20 24 01/22/2024 CBC/C OMPLE TE BLD COUNT W/DIF F white blood cells 6.9 x10'3 /uL 4.2-10 .8 Not Available [facility] (Lab) [address] [place], [address], 01/22/2024 18:39:24 01/22/20 24 01/22/2024 CBC/C OMPLE TE BLD COUNT W/DIF F red blood cells 4.59 x10'6 /uL 3.80-5 .20 Not Available [facility] (Lab) [address] [place], [address], 01/22/2024 18:39:24 01/22/2001/22/2024 CBC/C OMPLE TE BLD COUNT W/DIF F hemoglobin 15.1 g/dL 12.0-1 5.6 Not Available [facility] (Lab) [address] [place], [address], 01/22/2024 18:39:24 01/22/2001/22/2024 CBC/C OMPLE TE BLD COUNT W/DIF F hematocrit 46.7 % 35.7-4 5.7 high Not Available [facility] (Lab) [address] [place], [address], 01/22/2024 18:39:24 01/22/2001/22/2024 CBC/C OMPLE TE BLD COUNT W/DIF F mean red cell volume 101.7 fL 82.0-9 9.0 high Not Available [facility] (Lab) [address] [place], [address], 01/22/2024 18:39:24 01/22/2001/22/2024 CBC/C OMPLE TE BLD COUNT W/DIF F mean red cell hemoglobin 32.9 pg 27.0-3 3.0 Not Available [facility] (Lab) [address] [place], [address], 01/22/2024 18:39:24 01/22/2001/22/2024 CBC/C OMPLE TE BLD COUNT W/DIF F mean RBC HGB concentratio n 32.3 g/dL 31.0-3 6.0 Not Available [facility] (Lab) [address] [place], [address], 01/22/2024 18:39:24 01/22/2001/22/2024 CBC/C OMPLE TE BLD COUNT W/DIF F red cell distribution width 13.6 % 11.8-1 5.5 Not Available [facility] (Lab) [address] [place], [address], 01/22/2024 18:39:24 01/22/2001/22/2024 CBC/C OMPLE TE BLD COUNT W/DIF F platelets 179 x10'3 /uL 150-40 0 Not Available [facility] (Lab) [address] [place], [address], 01/22/2024 18:39:24 01/22/2001/22/2024 CBC/C OMPLE TE BLD COUNT W/DIF F neutrophils 55.2 % 39.0-7 2.0 Not Available [facility] (Lab) [address] [place], [address], 01/22/2024 18:39:24 01/22/2001/22/2024 CBC/C OMPLE TE BLD COUNT W/DIF F lymphocytes 33.2 % 16.0-4 7.0 Not Available [facility] (Lab) [address] [place], [address], 01/22/2024 18:39:24 01/22/2001/22/2024 CBC/C OMPLE TE BLD COUNT W/DIF F monocytes 8.3 % 5.0-12 .0 Not Available [facility] (Lab) [address] [place], [address], 01/22/2024 18:39:24 01/22/2001/22/2024 CBC/C OMPLE TE BLD COUNT W/DIF F eosinophils 2.3 % 1.0-7. 0 Not Available [facility] (Lab) [address] [place], [address], 01/22/2024 18:39:24 01/22/2001/22/2024 CBC/C OMPLE TE BLD COUNT W/DIF F basophils 0.7 % 0.0-2. 0 Not Available [facility] (Lab) [address] [place], [address], 01/22/2024 18:39:24 01/22/20 24 01/22/2024 CBC/C OMPLE TE BLD COUNT W/DIF F immature granulocytes 0.3 % 0.00-0 .50 Not Available [facility] (Lab) [address] [place], [address], 01/22/2024 18:39:24 01/22/2001/22/2024 CBC/C OMPLE TE BLD COUNT W/DIF F neutrophils, absolute count 3.78 x10'3 /uL 1.5-8. 0 Not Available [facility] (Lab) [address] [place], [address], 01/22/2024 18:39:24 01/22/2001/22/2024 CBC/C OMPLE TE BLD COUNT W/DIF F lymphocytes, absolute count 2.28 x10'3 /uL 1.07-3 .43 Not Available [facility] (Lab) [address] [place], [address], 01/22/2024 18:39:24 01/22/2001/22/2024 CBC/C OMPLE TE BLD COUNT W/DIF F monocytes, absolute count 0.57 x10'3 /uL 0.29-0 .99 Not Available [facility] (Lab) [address] [place], [address], 01/22/2024 18:39:24 01/22/2001/22/2024 CBC/C OMPLE TE BLD COUNT W/DIF F eosinophils, absolute count 0.16 x10'3 /uL 0.02-0 .53 Not Available [facility] (Lab) [address] [place], [address], 01/22/2024 18:39:24 01/22/20 24 01/22/2024 CBC/C OMPLE TE BLD COUNT W/DIF F basophils, absolute count 0.05 x10'3 /uL 0.01-0 .08 Not Available [facility] (Lab) [address] [place], [address], 01/22/2024 18:39:24 01/22/20 24 01/22/2024 CBC/C OMPLE TE BLD COUNT W/DIF F immature granulocytes ,absolute 0.02 x10'3 /uL 0.00-0 .05 Not Available [facility] (Lab) [address] [place], [address], 01/22/2024 18:39:24 01/22/20 24 01/22/2024 CBC/C OMPLE TE BLD COUNT W/DIF F nucleated red blood cells 0.0 % -0 Not Available [facility] (Lab) [address] [place], [address], 01/22/2024 18:39:24 01/22/2001/22/2024 CBC/C OMPLE TE BLD COUNT W/DIF F NRBC# 0.00 x10'3 /uL Not Available [facility] (Lab) [address] [place], [address], 01/22/2024 18:39:24 01/22/2001/22/2024 COMPR EHENS LAURA METAB OLIC PANEL sodium 156 mmol/ L 137-14 5 high Not Available [facility] (Lab) [address] [place], [address], 01/22/2024 20:40:34 01/22/2001/22/2024 COMPR EHENS LAURA METAB OLIC PANEL potassium 4.8 mmol/ L 3.5-5. 1 Not Available [facility] (Lab) [address] [place], [address], 01/22/2024 20:40:34 01/22/20 24 01/22/2024 COMPR EHENS LAURA METAB OLIC PANEL chloride 119 mmol/ L 98-107 high Not Available [facility] (Lab) [address] [place], [address], 01/22/2024 20:40:34 01/22/20 24 01/22/2024 COMPR EHENS LAURA METAB OLIC PANEL carbon dioxide 25 mmol/ L 22-30 Not Available [facility] (Lab) [address] [place], [address], 01/22/2024 20:40:34 01/22/20 24 01/22/2024 COMPR EHENS LAURA METAB OLIC PANEL anion gap 16.8 mmol/ L 14-22 Not Available [facility] (Lab) [address] [place], [address], 01/22/2024 20:40:34 01/22/20 24 01/22/2024 COMPR EHENS LAURA METAB OLIC PANEL glucose 113 mg/dL 70-99 high Not Available [facility] (Lab) [address] [place], [address], 01/22/2024 20:40:34 01/22/20 24 01/22/2024 COMPR EHENS LAURA METAB OLIC PANEL BUN 24 mg/dL 8-19 high Not Available [facility] (Lab) [address] [place], [address], 01/22/2024 20:40:34 01/22/20 24 01/22/2024 COMPR EHENS LAURA METAB OLIC PANEL creatinine 0.91 mg/dL 0.66-1 .25 Not Available [facility] (Lab) [address] [place], [address], 01/22/2024 20:40:34 01/22/20 24 01/22/2024 COMPR EHENS LAURA METAB OLIC PANEL GFR 59 Refer ence Range : [place] GFR Healt hy Adult : >60 mL/mi n/1.7 3 m2 Chron ic Kidne y Disea se: 15-60 mL/mi n/1.7 3 m2 Kidne y Failu re: <15/m L/min /1.73 m2 www.n iddk. nih.g ov The MDRD study equat ion has not been valid ated in child bebe <18 years of age; pregn ant women ; the elder ly >85 years of age; or in some racia l or ethni c subgr oups, such as Hispa nics. Outsi de the valid ated irwin eters , estim ated GFR is less accur ate, requi ring clini demian judgm ent on a case- by-ca se basis . Clini demian inter preta tion for other races and ages must be made by the clini salo. The MDRD study equat ion has not been valid ated for the evalu ation of serum creat inine relat ed to nutri rasheed l statu s or medic ation usage . For perso ns <18 years of age, a pedia tric GFR calcu lator is avail able on the [facility] websi te: [email or web address] :[email or web address] prieto/pr jannetteess ional s/kdo qi/gf r_cal culat or Not Available [facility] (Lab) [address] [place], [address], 01/22/2024 20:40:34 01/22/2001/22/2024 COMPR EHENS LAURA METAB OLIC PANEL alkaline phosphatase 76 U/L 38-126 Not Available [facility] (Lab) [address] [place], [address], 01/22/2024 20:40:34 01/22/20 24 01/22/2024 COMPR EHENS LAURA METAB OLIC PANEL alanine aminotransfe rase 24 U/L 0-35 Not Available [facility] (Lab) [address] [place], [address], 01/22/2024 20:40:34 01/22/20 24 01/22/2024 COMPR EHENS LAURA METAB OLIC PANEL aspartate aminotransfe rase 34 U/L 15-37 Not Available [facility] (Lab) [address] [place], [address], 01/22/2024 20:40:34 01/22/20 24 01/22/2024 COMPR EHENS LAUAR METAB OLIC PANEL bilirubin, total 0.70 mg/dL 0.20-1 .30 Not Available [facility] (Lab) [address] [place], [address], 01/22/2024 20:40:34 01/22/2001/22/2024 COMPR EHENS LAURA METAB OLIC PANEL calcium 10.9 mg/dL 8.4-10 .2 high Not Available [facility] (Lab) [address] [place], [address], 01/22/2024 20:40:34 01/22/20 24 01/22/2024 COMPR EHENS LAURA METAB OLIC PANEL total protein 7.8 g/dL 6.3-8. 2 Not Available [facility] (Lab) [address] [place], [address], 01/22/2024 20:40:34 01/22/20 24 01/22/2024 COMPR EHENS LAURA METAB OLIC PANEL albumin 4.9 g/dL 3.0-4. 4 high Not Available [facility] (Lab) [address] [place], [address], 01/22/2024 20:40:34 01/22/20 24 01/22/2024 COMPR EHENS LAURA METAB OLIC PANEL globulin 2.9 g/dL 2.6-4. 2 Not Available [facility] (Lab) [address] [place], [address], 01/22/2024 20:40:34 01/22/2001/22/2024 COMPR EHENS LAURA METAB OLIC PANEL A/G ratio 1.7 ratio 1.0-2. 0 Not Available [facility] (Lab) [address] [place], [address], 01/22/2024 20:40:34 01/22/20 24 01/22/2024 LIPID PANEL cholesterol 212 mg/dL 140-19 9 high NIH DAYANA NSUS RECOM MENDA TION FOR MELANY STERO L: ADULT CHILD LOW RISK: <200 <170 BORDE RLINE : <200- 239 ----- HIGH RISK: >240 >200 Not Available [facility] (Lab) [address] [place], [address], 01/22/2024 20:40:39 01/22/20 24 01/22/2024 LIPID PANEL triglyceride s 213 mg/dL 0-150 high NIH DAYANA NSUS REPOR T RECOM MENDA TION FOR TRIGL YCERI TRICIA: ADULT CHILD LOW RISK: <150 ----- BODER LINE: 150-1 99 ----- HIGH RISK: >200 ----- Not Available [facility] (Lab) [address] [place], [address], 01/22/2024 20:40:39 01/22/20 24 01/22/2024 LIPID PANEL HDL cholesterol 67 mg/dL 40- Not Available [facility] (Lab) [address] [place], [address], 01/22/2024 20:40:39 01/22/20 24 01/22/2024 LIPID PANEL LDL cholesterol, calculated 102 mg/dL 0-130 NIH DAYANA NSUS REPOR T RECOM MENDA TIONS FOR LDL: ADULT CHILD LOW RISK <130 <110 (OPTI MAL LDL) <100 ----- BORDE RLINE : 130-1 59 ----- HIGH RISK: >160 >130 A TRIGL YCERI DE RESUL T >400 INVAL IDATE S THE CALCU LATIO N FOR LDL FRACT IONAT ION - THE LDL RESUL T WILL NOT BE REPOR EDWARD. Not Available [facility] (Lab) [address] [place], [address], 01/22/2024 20:40:39 01/22/20 24 01/22/2024 VITAM IN D 25-HY DROXY [id number] 40.2 NG/mL 30-100 Vitam in D Statu s: Defic ient: <20 ng/mL Insuf ficie nt: 20-29 ng/mL Suffi cient : 30-10 0 ng/mL Not Available [facility] (Lab) [address] [place], [address], 01/22/2024 20:57:09 02/15/20 23 XR, knee No observ ation record ed. [email or web address] [facility] [address] [place], [address], 02/14/2023 15:58:58 03/30/20 24 03/30/2024 XR, chest No observ ation record ed. BARCODE Not Available 2023 18:05:22 Result Notes None recorded. Problems Name Problem SNOMED Code Status Onset Date Resolution Date Notes Provider Name and Address Organization Details Recorded Time Closed fracture of right patella 72253803006 019503 Active 2022 Not Available [facility] 3 15:38:15 Cellulit is 534537439 Completed Not Available [facility] 3 06:46:37 Hearing loss 82594963 Active Not Available [facility] 3 15:38:15 Pain of right ankle joint 05482974292 406514 Active 2022 Not Available [facility] 3 15:38:15 Insomnia 165811530 Active 2016 Not Available [facility] 3 15:38:15 Angina pectoris 686238374 Completed Not Available [facility] 3 06:46:38 Nail deformit y 219840541 Completed 202001/16/2022 Not Available [facility] 3 06:46:38 Gastroes ophageal reflux disease 387097608 Active Not Available [facility] 3 15:38:15 Thyroid nodule 997362324 Active 2017 Not Available [facility] 3 15:38:15 Infectio n of sebaceou s cyst 623711290 Completed Not Available [facility] 3 06:46:38 Long-ter m drug therapy Completed 202101/16/2022 Not Available [facility] 3 06:46:39 Edema 823298442 Active 2019 Not Available [facility] 3 15:38:15 Adult health examinat ion Active 2020 Not Available [facility] 3 15:38:15 Thoracic back pain 789861431 Completed Not Available [facility] 3 06:46:39 Rib pain 687338905 Active 2022 Not Available [facility] 3 15:38:15 Hypertri glycerid emia 488895802 Active 2020 Not Available [facility] 3 15:38:15 Knee pain Completed Not Available [facility] 3 06:46:40 Facial lacerati on 785292819 Active 2022 Not Available [facility] 3 15:38:15 Osteoart hritis 364159259 Active Not Available [facility] 3 15:38:15 Onychomy cosis of toenails 508280792 Completed 202101/16/2022 Not Available [facility] 3 06:46:40 Solitary nodule of lung 100199334 Active 2022 Not Available [facility] 3 15:38:15 Solitary nodule of lung 095074508 Completed 201901/16/2022 Not Available [facility] 3 06:46:40 Multiple nodules of lung 643763966 Active 2017 PET 07/02, Benign Not Available [facility] 3 15:38:15 Pain of right knee joint 64745894955 4100 Active 2022 Not Available [facility] 3 15:38:16 Coronary arterios clerosis 81628935 Active 2020 Not Available [facility] 3 15:38:16 Acute upper respirat ory infectio n 71456358 Completed Not Available [facility] 3 06:46:41 Hyperlip idemia 17801771 Active Not Available [facility] 3 15:38:16 [facility]entia l hyperten josé miguel 80162381 Active Not Available [facility] 3 15:38:16 Osteopor osis 06371448 Active 2016 Not Available [facility] 3 15:38:16 Closed fracture of patella 09634681 Active 2022 Not Available [facility] 3 15:38:16 Skin lesion 81000616 Active Not Available [facility] 3 15:38:16 Fracture of patella 49103696 Active 2022 Not Available [facility] 3 15:38:16 Hearing loss 41653258 Active 2022 Not Available [facility] 3 15:38:15 Dysphagi a 16310617 Active 2022 Not Available [facility] 3 15:38:15 Velophar yngeal insuffic iency 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 Active 2022 Not Available [facility] 3 15:38:15 Pain of left knee joint 80484179042 4107 Active 2022 NANNETTE Guerra, [place] - [facility] [facility] 3 11:02:59 Osteoart hritis of left knee joint 75891755162 9109 Active 2022 NANNETTE Guerra null, [place] [facility] 3 08:58:09 Hemorrho ids 99690545 Active 2023 Shaan Farah MD [address], [address], [address] , [place] [facility] 4 10:26:49 Hypercal cemia 47526438 Active 2023 Shaan Farah MD [address], [address], [place], [address] , [facility] [email or web address] [facility] 08:52:35 Problem Notes None recorded. Procedures Surgical History Date Name Laterality Status Provider Name and Address Organization Details Recorded Time 09/18/19 24 Medicare Wellness CPT Code, subsequent completed Mandy Latham RN [facility] [employer] [facility] 09/18/2023 10:37:37 09/15/19 23 Medicare Wellness CPT Code, subsequent completed Roshni Gutiérrez RN [facility] [employer] [facility] 09/14/2022 11:19:42 02/14/20 22 Most Recent Bone Density completed Roshni Gutiérrez RN [facility] [employer] [facility] 09/14/2022 11:21:47 06/30/19 10 Date of Last Colonoscopy completed Not Available [facility] 06/13/2022 06:41:20 Appendectomy completed Not Available [facility] 06/13/2022 06:41:23 Hysterectomy completed Not Available [facility] 06/13/2022 06:41:23 Imaging Results Imaging Date Name Status LastModified by Organiz ation Details LastModified Time 02/14/2023 XR, knee completed [email or web address] [facility] [place] [address] [facility], [place], [address], 02/14/2023 15:58:58 03/30/2024 XR, chest completed BARCODE Information no t available 03/30/2024 18:05:22 Procedure Notes None recorded. Medical Equipment None Reported. Allergies Allergen ID Allergen Name Allergen Category Reaction Reaction Severity Criticality Documentation Date Start Date Code Code System Note Provider Name and Address Organization Details Recorded Time 11843 sulfur dioxide medicatio n rash Not available Not available 06/13/2022 56770 79 RxNorm Not Available [facility] 3 06:54:31 69727 Substance with sulfonami de structure and antibacte rial mechanism of action (substanc e) medicatio n rash Not available Not available 06/13/2022 94702 8003 SNOMED Not Available [facility] 3 06:54:31 08090 codeine medicatio n rash Not available Not available 06/13/2022 2670 RxNorm Not Available [facility] 3 06:54:32 Medications Name Sig Start Date Stop Date Status Note LastModified by Organization Details LastModified Time amoxicillin 500 mg capsule Take 1 capsule 3 times a day by oral route for 7 days. active Not Available Not Available No t Available clindamycin HCl 300 mg capsule Take 1 capsule every 6 hours by oral route. active Not Available Not Available No t Available trazodone 50 mg tablet TAKE 1 TABLET BY MOUTH EVERY DAY NEEDED active Not Available Not Available No t Available azithromyci n 250 mg tablet TK 2 TS PO ON DAY 1, THEN TK 1 T PO D FOR 4 DAYS 05/16 completed Not Available Not Available Not Available aspirin 325 mg tablet Take 1 tablet every day by oral route. 05/10 completed Not Available Not Available Not Available ofloxacin 0.3 % eye drops INT 1 GTT INTO INTO AFFECTED EYE TID DIRECTED. BEGIN 2 DAYS PRIOR TO SURGERY. active Not Available Not Available No t Available fluconazole 150 mg tablet TAKE 1 TABLET BY MOUTH EVERY DAY FOR 1 DAY 08/04 completed Not Available Not Available Not Available alendronate 70 mg tablet TAKE 1 TABLET BY MOUTH EVERY WEEK 2023 active Not Available Not Available Not Avai lable Nifedical XL 30 mg tablet,exte nded release Take 1 tablet every day by oral route. active Not Available Not Available No t Available diphenoxyla te-atropine 2.5 mg-0.025 mg tablet take 1 tab after each diarrhea stool no more that 8 in a 24 hour time period. active Not Available Not Available No t Available nifedipine ER 30 mg tablet,exte nded release TAKE ONE TABLET DAILY 04/26 completed Not Available Not Available Not Available ciprofloxac in 250 mg tablet Take 1 tablet every 12 hours by oral route for 5 days. 01/10 completed Not Available Not Available Not Available amlodipine 5 mg tablet Take 1 tablet every day by oral route for 90 days. 01/10 completed Not Available Not Available Not Available ciprofloxac in 500 mg tablet 06/17 completed Not Available Not Available Not Available sulfamethox azole 800 mg-trimetho prim 160 mg tablet 05/26 completed Not Available Not Available Not Available omeprazole 40 mg capsule,del ayed release active Not Available Not Available Not Available aspirin 81 mg tablet,bruno yed release Take 1 tablet every other day by oral route. 01/28 completed Not Available Not Available Not Available tramadol 50 mg tablet active Not Available Not Available No t Available triamcinolo ne acetonide 0.1 % topical cream APPLY A THIN LAYER TO THE AFFECTED AREA(S) BY TOPICAL ROUTE 2 or 3 TIMES PER DAY active Not Available Not Available No t Available TobraDex 0.3 %-0.1 % eye ointment APPLY 1/4 TO 1/2 INCH STRIP TO LOWER EYELID MARGIN OF BOTH EYES TWICE DAILY FOR 7 DAYS 08/23 completed Not Available Not Available Not Available pantoprazol e 20 mg tablet,bruno yed release TAKE 1 TABLET BY MOUTH DAILY 05/25 completed Not Available Not Available Not Available Macrobid 100 mg capsule Take 1 capsule every 12 hours by oral route for 5 days. active Not Available Not Available No t Available oxycodone-a cetaminophe n 5 mg-325 mg tablet 09/22 completed Not Available Not Available Not Available hydrocortis one 2.5 % topical cream with perineal applicator APPLY THIN LAYER TOPICALLY TO THE AFFECTED AREA 2 TO 4 TIMES DAILY active Not Available Not Available No t Available amoxicillin 875 mg tablet TAKE 1 TABLET BY MOUTH TWICE DAILY UNTIL GONE 01/17 completed Not Available Not Available Not Available hydromorpho ne 2 mg tablet 05/24 completed Not Available Not Available Not Available amlodipine 10 mg tablet TAKE 1 TABLET BY MOUTH DAILY 2023 active Not Available Not Available Not Avai lable econazole 1 % topical cream APPLY TO THE AFFECTED AND SURROUNDI NG AREAS OF SKIN BY TOPICAL ROUTE 2 TIMES PER DAY active Not Available Not Available No t Available cephalexin 500 mg capsule Take 1 capsule every 6 hours by oral route. 01/19 completed Not Available Not Available Not Available pantoprazol e 40 mg tablet,bruno yed release TAKE 1 TABLET BY MOUTH DAILY NEEDED 2023 active Not Available Not Available Not Avai lable simvastatin 20 mg tablet TAKE 1 TABLET BY MOUTH DAILY 2023 active Not Available Not Available Not Avai lable nystatin 100,000 unit/gram topical cream APPLY TO THE AFFECTED AREA(S) BY TOPICAL ROUTE 2 or 3 TIMES PER DAY active Not Available Not Available No t Available ranitidine 150 mg tablet active Not Available Not Available Not Available lisinopril 10 mg tablet TAKE 1 TABLET BY MOUTH EVERY MORNING 04/26 completed Not Available Not Available Not Available indomethaci n 25 mg capsule Take 1 capsule 3 times a day by oral route. active Not Available Not Available No t Available nitroglycer in 0.[address] 1 TABLET UNDER TONGUE AND ALLOW TO DISSOLVE EVERY 5 MINUTES NEEDED FOR CHEST PAIN UP TO 3 TABLET CALL 911 AFTER 2ND TABLET 05/10 completed Not Available Not Available Not Available aspirin 81 mg tablet Take by oral route. 05/24 completed Not Available Not Available Not Available furosemide 20 mg tablet TAKE 1 TABLET BY MOUTH DAILY 2023 active Not Available Not Available Not Avai lable Septra DS 800 mg-160 mg tablet 06/03 completed Not Available Not Available Not Available methylpredn isolone 4 mg tablets in a dose pack Take by oral route. 09/06 completed Not Available Not Available Not Available lisinopril 40 mg tablet TAKE 1 TABLET BY MOUTH DAILY 2023 active Not Available Not Available Not Avai lable fluticasone propionate 50 mcg/actuati on nasal spray,suspe nsion Inhale 2 sprays every day by intranasa l route in the evening. active Not Available Not Available No t Available oxycodone 5 mg tablet take 1/2 tab q 4hr pain 09/14 completed Not Available Not Available Not Available aspirin active Not Available Not Avail able Not Available omeprazole 08/04 completed Not Available Not Available Not Available multivitami n 2018 active Not Available Not Available Not Avai lable Calcium 500 06/17 completed Not Available Not Available Not Available Calcium 600 + D(3) 2018 active Not Available Not Available Not Avai lable tramadol ER 100 mg tablet,exte nded release 24 hr Take 1 tablet 3 times a day by oral route. active Not Available Not Available No t Available Eliquis 5 mg tablet TK 1 T PO BID active Not Available Not Available No t Available Eliquis 2.5 mg tablet TAKE 1 TABLET BY MOUTH EVERY 12 HOURS 09/14 completed Not Available Not Available Not Available Fluzone Quad (PF) 60 mcg (15 mcg x 4)/0.5 mL IM syringe DIRECTED active Not Available Not Available No t Available Fluad Quad 1009-8726(6 5yr up)(PF) 60 mcg (15 mcg x 4)/0.5mL IM syringe ADMINISTE R 0.5ML IN THE MUSCLE DIRECTED 04/27 completed Not Available Not Available Not Available Vitals Date Recorded Body height Provider Name an d Address Organization Details Last Updated DateTime 02/14/2023 162.56 cm Angi Rucker [place] [facility] [email or web address] [facility] 02/14/2023 11:02:16 Date Recorded Body height Provider Name an d Address Organization Details Last Updated DateTime 02/28/2023 162.56 cm Angi Rucker [facility] [email or web address] [facility] 02/28/2023 08:57:09 Date Recorded Body height Body mass index (BMI) Body weight Body temperature Heart rate Oxygen saturation Oxygen saturation in Arterial blood by Pulse oximetry Systolic blood pressure Diastolic blood pressure Provider Name and Address Organization Details Last Updated DateTime 4 162.56 cm 26.6 kg/m2 02207.8 2 g 97.9 [degF] 61 /min 98 % 98 % 120 mm[Hg] 68 mm[Hg] George Arellano CMA MA [employer] [facility] [email or web address] [facility] 4 10:52:55 Date Recorded Body height Body mass index (BMI) Body weight Heart rate Oxygen saturation Oxygen saturation in Arterial blood by Pulse oximetry Systolic blood pressure Diastolic blood pressure Provider Name and Address Organization Details Last Updated DateTime 4 162.56 cm 26.9 kg/m2 17194.9 2 g 53 /min 99 % 99 % 120 mm[Hg] 70 mm[Hg] Angi Rucker [employer] [facility] [email or web address] [facility] 4 09:52:24 Date Recorded Body height Body mass index (BMI) Body weight Body temperature Heart rate Oxygen saturation Oxygen saturation in Arterial blood by Pulse oximetry Systolic blood pressure Diastolic blood pressure Provider Name and Address Organization Details Last Updated DateTime 4 162.56 cm 26.6 kg/m2 76488.8 2 g 97.7 [degF] 62 /min 98 % 98 % 118 mm[Hg] 64 mm[Hg] Radha zuniga [facility] [employer] [facility] 4 10:09:40 Social History Question Answer Notes LastModified by Organization Details LastModified Time Tobacco Smoking Status Never Smoker Not Available [facility] 06/13/2022 06:40:29 Do You Have An Advance Directive? Yes [id number] [id number] Information not available 06/13/2022 What Is Your Level Of Alcohol Consumption? None MIGRATION.0301 [id number] Information not available 06/13/2022 Are You Blind Or Do You Have Difficulty Seeing? No MIGRATION.0301 [id number] Information not available 06/13/2022 What Is Your Level Of Caffeine Consumption? Occasional MIGRATION.0301 [id number] Information not available 06/13/2022 How Much Tobacco Do You Chew? None MIGRATION.0301 [id number] Information not available 06/13/2022 Are You Deaf Or Do You Have Serious Difficulty Hearing? Yes Hearing Aids MIGRATION.0301 [id number] Information not available 06/13/2022 What Type Of Diet Are You Following? REGULAR MIGRATION.0301 [id number] Information not available 06/13/2022 Which Illicit Or Recreational Drugs Have You Used? None MIGRATION.0301 [id number] Information not available 06/13/2022 What Is Your Occupation? Retired MIGRATION.0301 [id number] Information not available 06/13/2022 Have There Been Any Changes To Your Family Or Social Situation? No [email or web address] Information not available 09/18/2023 What Is The Fluoride Status Of Your Home? Fluoridated MIGRATION.0301 [id number] Information not available 06/13/2022 Are There Any Guns Present In Your Home? No MIGRATION.0301 [id number] Information not available 06/13/2022 Where Do You Live? SingleLevelHouse With Basement MIGRATION.0301 [id number] Information not available 06/13/2022 Presence Of Domestic Violence No [email or web address] Information not available 09/14/2022 Guns Present In The Home? No [email or web address] Information not available 09/18/2023 Are You Able To Care For Yourself? Yes [email or web address] Information not available 09/14/2022 Are You Blind Or Do Yo Have Difficulty Seeing? No [email or web address] Information not available 09/14/2022 Are You Deaf Or Do You Have Serious Difficulty Hearing? Yes Hearing Aids [email or web address] Information not available 09/14/2022 General Stress Level? Low [email or web address] Information not available 09/14/2022 Live Alone Of With Others? With Others [email or web address] Information not available 09/14/2022 What Was The Date Of Your Most Recent Tobacco Screening? 09/18/2023 Information not available 09/18/2023 Do You Have Any Pets? No Information not available 09/18/2023 What Is Your Relationship Status? [email or web address] Information not available 09/14/2022 Do You Use Your Seat Belt Or Car Seat Routinely? Yes MIGRATION.0301 [id number] Information not available 06/13/2022 Do You Have Smoke And Carbon Monoxide Detectors In Your Home? Yes MIGRATION.0301 [id number] Information not available 06/13/2022 Are You Passively Exposed To Smoke? No [email or web address] Information not available 09/18/2023 Are There Any Smokers In Your House? No [email or web address] Information not available 09/18/2023 Do You Use Sunscreen Routinely? Yes MIGRATION.0301 [id number] Information not available 06/13/2022 Sex: Female Functional Status Question Answer Note LastModified by Organizat ion Details LastModified Time Do you have difficulty walking or climbing stairs? No [id number] 026 Information not available 06/13/2022 Do you have transportation difficulties? No [id number] 026 Information not available 06/13/2022 Are you able to walk? YESWOREST MIGRATION.[id number] 026 Information not available 06/13/2022 Do you have difficulty doing errands alone? No MIGRATION.[id number] 026 Information not available 06/13/2022 Are you able to care for yourself? Yes [id number] 026 Information not available 06/13/2022 Do you have difficulty dressing or bathing? No MIGRATION.[id number] 026 Information not available 06/13/2022 What is your exercise level? Occasional [email or web address] Information not available 09/18/2023 Mental Status Question Answer Note LastModified by Organizat ion Details LastModified Time Do you have difficulty concentrating, remembering or making decisions? No [id number] 6 Information not available 06/13/2022 Family History Relationship Description Onset Age of this Age Resolved Age Notes LastModified by Organization Details LastModified Time Mother Heart disease MIGRATION.178 [id number] Not available 06/13/2022 06:41:24 Mother Essential hypertension MIGRATION.834 [id number] Not available 06/13/2022 06:41:24 Father Heart disease MIGRATION.919 [id number] Not available 06/13/2022 06:41:24 Father Essential hypertension MIGRATION.317 [id number] Not available 06/13/2022 06:41:24 Sister Family history of malignant neoplasm [id number].148 [id number] Not available 06/13/2022 06:41:24 Unspecified Relation Diabetes mellitus grands on MIGRATION.203 [id number] Not available 06/13/2022 06:41:24 Notes:NO ENT Medical History Condition Response ARTHRITIS Y OSTEOPOROSIS Y SLEEP DISORDER Y BLOOD CLOTS Y HYPERTENSION Y HIGH CHOLESTEROL / HYPERLIPIDEMIA Y Gynecological History Statement/Question Response Date of Last Pap Date of Last Mammogram 10/22/2018 Date of Last Colonoscopy 06/29/2009 Date of Last Mammogram Most Recent Bone Density 02/13/2022 Obstetrics History GPAL:G 0 P 0 0 0 0 Immunizations Vaccine Type Date Status Note Provider Nam e and Address Organization Details Recorded Time Influenza, high-dose, quadrivalent, PF 3 completed NANNETTE Gallo, [place] - [facility] [employer] 01/14/2023 17:01:22 SARS-COV-2 (COVID-19) vaccine, UNSPECIFIED 1 completed Not Available [facility] 02/21/2023 23:23:27 SARS-COV-2 (COVID-19) vaccine, UNSPECIFIED 1 completed Not Available [facility] 02/21/2023 23:23:27 Influenza, high-dose, trivalent, PF 0 completed Not Available [facility] 02/21/2023 23:23:27 Influenza, split virus, trivalent, preservative 5 completed Not Available [facility] 02/21/2023 23:23:27 Influenza, split virus, quadrivalent, preservative 9 completed Not Available [facility] 02/21/2023 23:23:26 Influenza, split virus, trivalent, preservative 4 completed Not Available [facility] 02/21/2023 23:23:27 Influenza, high-dose, quadrivalent, PF 2 completed Not Available [facility] 02/21/2023 23:23:26 Influenza, high-dose, trivalent, PF 8 completed Not Available [facility] 02/21/2023 23:23:27 Pneumococcal conjugate PCV 13 8 completed Not Available [facility] 02/21/2023 23:23:27 Influenza, split virus, quadrivalent, PF 7 completed Not Available [facility] 02/21/2023 23:23:27 pneumococcal polysaccharide PPV23 6 completed Not Available [facility] 02/21/2023 23:23:27 Influenza, split virus, quadrivalent, PF 6 completed Not Available [facility] 02/21/2023 23:23:27 Influenza, high-dose, trivalent, PF 4 completed Shaan Farah MD [address] [place] [address], [place], [address], [facility] 01/22/2024 14:18:22 Past Encounters Encounter ID Performer Location Encounter Start Date Encounter Closed Date Diagnosis/Indication Diagnosis SNOMED-CT Code Diagnosis ICD10 Code [id number] [facility] [address] [address] 08/04/2020 00:00:00 08/04/2020 10:38:27 [id number] [facility] [address] [address] 08/23/2020 00:00:00 08/23/2020 10:42:01 [id number] [facility] [address] [address] 12/27/2020 00:00:00 12/27/2020 10:57:59 [id number] _ATHENA_M IGRATION_ DEFAULT_1 _1 , 01/27/2021 00:00:00 01/31/2021 12:17:19 [id number] [facility] [address] [address] 05/16/2021 00:00:00 05/16/2021 11:37:54 [id number] [facility] [address] [address] 09/14/2021 00:00:00 09/14/2021 11:33:41 [id number] [facility] [address] [address] 01/17/2022 00:00:00 01/17/2022 12:42:23 [id number] [facility] [address] [address] 05/10/2022 00:00:00 05/10/2022 16:38:58 [id number] [facility] [address] [address] 05/17/2022 00:00:00 05/17/2022 11:23:48 [id number] [facility] [address] [address] 05/24/2022 00:00:00 05/24/2022 09:39:33 [id number] JANIE El [facility] [address] [address] 06/14/2022 08:44:19 06/14/2022 09:42:49 Closed fracture of right patella [id number] 4935708 S82.001D [id number] JANIE El [facility] [address] [address] 07/05/2022 08:56:13 07/05/2022 09:40:15 Fracture of patella 01103028 S82.001D [id number] JANIE El [facility] [address] [address] 07/26/2022 08:51:56 07/26/2022 09:41:14 Fracture of patella 11383172 S82.001D [id number] JANIE El [facility] [address] [place] [address] 08/16/2022 09:08:14 08/16/2022 09:56:16 Pain of right knee joint 7137009374 10349 M25.561 [id number] Shaan Farah MD [facility] [address] [facility] [place] [address] 09/14/2022 10:29:26 09/14/2022 11:22:49 Essential hypertension 18657120 I10 Coronary arteriosclerosis 74696038 I25.10 Hyperlipidemia 44837763 E78.5 Gastroesop hageal reflux disease 888832703 K21.9 Thyroid nodule 393913378 E04.1 Solitary n odule of lung 059067261 R91.1 Hearing loss 92985624 H9 1.93 Osteoporosis 76840689 M8 1.0 Insomnia 084427931 G47.0 0 Adult heal th examination 139595039 Z00.00 Closed fra cture of right patella 9935452209 5787047 S82.001A Screening for disorder 066435626 Z13.9 [id number] Fitz Bella MD [facility] [place] [address] [place] [address] 10/25/2022 11:28:55 10/25/2022 12:21:51 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 [address] [facility] [place] [address] 01/14/2023 10:26:55 01/14/2023 11:29:36 Essential hypertension 09580489 I10 Coronary arteriosclerosis 20398995 I25.10 Hyperlipidemia 65212562 E78.5 Gastroesop hageal reflux disease 589057298 K21.9 Thyroid nodule 884616291 E04.1 Solitary n odule of lung 383822862 R91.1 Hearing loss 27913025 H9 1.93 Osteoporosis 32083431 M8 1.0 Insomnia 957819824 G47.0 0 Adult heal th examination 143980694 Z00.00 Administra tion of influenza vaccine 04401908 Z23 Long-term drug therapy 801929961 Z79.899 Hypertriglyceridemia 302 044117 E78.1 Multiple n odules of lung 735219244 R91.8 Osteoarthritis 714649487 M19.90 [id number] JANIE El [address] [address] 02/14/2023 10:55:53 02/14/2023 16:05:29 Pain of left knee joint 5928504762 10078 M25.924 [id number] JANIE El [address] [address] 02/28/2023 08:53:20 02/28/2023 09:37:47 Osteoarthritis of left knee joint 1272665696 74108 M17.12 [id number] Shaan Farah MD [facility] Internal [address] [address] 05/17/2023 10:22:47 05/17/2023 11:41:57 Essential hypertension 30556707 I10 Coronary arteriosclerosis 96549227 I25.10 Hyperlipidemia 19455212 E78.5 Gastroesop hageal reflux disease 070683882 K21.9 Thyroid nodule 558693919 E04.1 Solitary n odule of lung 860402279 R91.1 Hearing loss 01560801 H9 1.93 Osteoporosis 55481666 M8 1.0 Insomnia 222839451 G47.0 0 Adult heal th examination 208145188 Z00.00 Hypertriglyceridemia 302 819987 E78.1 Multiple n odules of lung 178773262 R91.8 Osteoarthritis 114281999 M19.90 [id number] Shaan Farah MD [facility] [address] [address] 09/18/2023 09:34:03 09/18/2023 10:38:34 Essential hypertension 76202187 I10 Coronary arteriosclerosis 93355784 I25.10 Hyperlipidemia 89524743 E78.5 Gastroesop hageal reflux disease 122208243 K21.9 Thyroid nodule 758214092 E04.1 Solitary n odule of lung 009170680 R91.1 Hearing loss 19665501 H9 1.93 Osteoporosis 08413990 M8 1.0 Insomnia 686755867 G47.0 0 Adult heal th examination 924420534 Z00.00 Hypertriglyceridemia 302 269407 E78.1 Multiple n odules of lung 629953153 R91.8 Osteoarthritis 813810444 M19.90 Hemorrhoids 32050016 K64 .9 Screening for disorder 702750200 Z13.9 [id number] Shaan Farah MD [facility] [address] [place] [address] 01/22/2024 09:48:27 01/22/2024 11:10:46 Essential hypertension 39199050 I10 Coronary arteriosclerosis 78507132 I25.10 Hyperlipidemia 81157396 E78.5 Gastroesop hageal reflux disease 607897073 K21.9 Thyroid nodule 336406910 E04.1 Solitary n odule of lung 896526481 R91.1 Hearing loss 04309600 H9 1.93 Osteoporosis 49722149 M8 1.0 Insomnia 882196526 G47.0 0 Adult heal th examination 022465975 Z00.00 Hypertriglyceridemia 302 385182 E78.1 Multiple n odules of lung 324133876 R91.8 Osteoarthritis 877130504 M19.90 Hemorrhoids 32962169 K64 .9 Long-term drug therapy 108506641 Z79.899 Administra tion of influenza vaccine 62837640 Z23 Health Concerns Section Related Observation LastModified by Organization Detai ls LastModified Time None Recorded Concern Status LastModified by Organization Details LastModified Time None Recorded Advance Directives Directive Y: Payers Encounter Date Sequence Insurance Name Policy Number Policy Briggs Covered Member ID Briggs Member ID Guarantor Name 02/14/2023 1 [facility] MEDICARE SOLUTIONS - MEDICARE COMPLETE (MEDICARE REPLACEMENT HMO) [id number] Monica L Harjit [id number] Milnor L Harjit 02/28/2023 1 [facility] MEDICARE SOLUTIONS - MEDICARE COMPLETE (MEDICARE REPLACEMENT HMO) [id number] Monica L Harjit [id number] Milnor L Harjit 05/17/2023 1 [employer] - [employer] - MEDICARE [employer] - MEDICARE COMPLETE (MEDICARE REPLACEMENT HMO) [id number] Monica L Harjit [id number] Milnor L Harjit 09/18/2023 1 [facility] MEDICARE SOLUTIONS - MEDICARE COMPLETE (MEDICARE REPLACEMENT HMO) [id number] Milnor L Harjit [id number] Milnor L Harjit 01/22/2024 1 [facility] - MEDICARE SOLUTIONS - MEDICARE COMPLETE (MEDICARE REPLACEMENT HMO) [id number] Monica L Harjit [id number] Milnor L Harjit Notes Date Note Type Note Provider Name and Address Organization Details Recorded Time 05/17/2023 text/html Doing fine, compliant to medications, no side affects, here for follow up.HEARING LOSS, using hearing aids *Has been having left knee pain, Has been taking OTC Tylenol Also having trouble sleeping, take trazodone, Has trouble getting to sleep not staying asleep HTN- under controlMeds- Lisinopril 40 mg qd, amlodipine 10 mg qd,Hyperlipidemia- better, advised to watch diet, Trig were high but betterMeds- simvastatin 20 mg qdGERD- controlled with medsMeds- pantoprazole 40 mgCAD- medical managementOsteoporos is- on meds, LAST DEXA 03/06Meds- alendronate 70 mg weeklyHearing loss- getting new hearing aidsEdema- on frusemide and betterMultiple nodular goiter- biopsy neg 2018Insomnia- Takes Trazodone as needed to help sleepPulm nodule- PET scan 07/02, BENIGN, never smoked, seen pulm , biopsy could not be done due to location, NO MORE W/U NEEDEDLeft knee pain, MRI showed meniscus tear and effusion, s/p shots, better, seen ortho in the past Right patellar fx, seen dr albert, has healed Shaan Farah MD [address] [facility], [facility] [address], [place], [address], [place] [facility] 05/17/2023 11:44:41 09/18/2023 text/html Doing fine, compliant to medications, no side affects, here for follow up. PT IS FASTING HEARING LOSS, using hearing aids Hemorroides- Has been dealing with them for years, Usually would just use preparation H but recently has not been helping. Denies any bleeding at the moment. Does not want surgery HTN- under controlMeds- Lisinopril 40 mg qd, Amlodipine 10 mg qd,Hyperlipidemia- better, advised to watch diet, Trig were high,Meds- Simvastatin 20 mg qdGERD- controlled with medsMeds- Pantoprazole 40 mgCAD- medical management, no symptomsOsteoporosis - on meds, LAST DEXA 03/06Meds- Alendronate 70 mg weeklyHearing loss- getting new hearing aidsEdema- on frusemide and betterMultiple nodular goiter- biopsy neg 2018Insomnia- Takes Trazodone as needed to help sleepPulm nodule- PET scan 07/02, BENIGN, never smoked, seen pulm , biopsy could not be done due to location, NO MORE W/U NEEDEDLeft knee pain, MRI showed meniscus tear and effusion, s/p shots, better, seen ortho in the past Right patellar fx, seen dr albert, has healed Shaan Farah MD [address] [facility], [facility] [address], [place], [address], [facility] [employer] 09/18/2023 12:01:30 01/22/2024 text/html Doing fine, compliant to medications, no side affects, here for follow up.PT IS FASTING HEARING LOSS, using hearing aids Hemorroides- Has been dealing with them for years, Usually would just use preparation H but recently has not been helping. Denies any bleeding at the moment. Does not want surgery HTN- under controlMeds- Lisinopril 40 mg qd, Amlodipine 10 mg qd,Hyperlipidemia- better, advised to watch diet, Trig were high,Meds- Simvastatin 20 mg qdGERD- controlled with medsMeds- Pantoprazole 40 mgCAD- medical management, no symptoms dr Méndez- on meds, LAST DEXA 03/06Meds- Alendronate 70 mg weeklyHearing loss- getting new hearing aidsEdema- on furosemide and betterMultiple nodular goiter- biopsy neg 2018Insomnia- Takes Trazodone every nightPulm nodule- PET scan 07/02, BENIGN, never smoked, seen pulm , biopsy could not be done due to location, NO MORE W/U NEEDEDLeft knee pain, MRI showed meniscus tear and effusion, s/p shots, better, seen ortho in the past , using voltaren gel Right patellar fx, seen dr albert, has healed Shaan Farah MD [address] [facility], [place] [address], [place], [address], [facility] [employer] 01/22/2024 14:18:27 OBGyn Episode No OBEpisode recorded.
--- OUTSIDE RECORDS SUMMARY | 2024-04-04 14:29 | XMS_ITS | Encounter Summary ---
Author Organization [employer] Care Team Providers Care Mixing Machine Feeder Name Role Phone Keegan Farah MD Primary Care Provider [phone] Encounter Details Date Type Department Care Team (Latest Contact Info) Description 05/05/2022 Travel Social History Tobacco Use Types Packs/Day Years Used Date Smoking Tobacco: Never Passive Smoke Exposure: Never Smokeless Tobacco: Never Alcohol Use Standard Drinks/Week Comments Never 0 (1 standard drink = 0.6 oz pur e alcohol) Comments Unknown Sex and Gender Information Value Date Recorded Sex Assigned at Not on file Legal Sex Female 1:11 PM ASSISTANT EDITOR Gender Identity Not on file Sexual Orientation Not on file COVID-19 Exposure Response Date Recorded In the last 10 days, have yo u been in contact with someone who was confirmed or suspected to have Coronavirus/COVID-19? No / Unsure 05/05/2022 1:11 PM ASSISTANT EDITOR documented as of this encounter Plan of Treatment Not on file documented as of this encounter Visit Diagnoses Not on filedocumented in this encounter Care Teams Mixing Machine Feeder Relationship Specialty Start Date End Date Keegan Farah MD PCP - General Internal Medicine 05/05/22 documented as of this encounter
--- OUTSIDE RECORDS SUMMARY | 2024-04-04 14:29 | XMS_ITS | Continuity of Care Document ---
Author Organization [place] [facility], [facility] [address] Address [address] [place] [address] Care Team Providers Care Car Trimmer Name Role Phone KEEGAN FARAH Primary Care Provider KEEGAN FARAH Referring Provider [phone] Assessment No assessment recorded. Plan of Treatment Reminders Order Date Submit Date Provider Last Modified By Organization Details Last Modified Time Details Appointments Any 15 2024 09:00A M Keegan Farah MD Not available Not available Not available Lab vitamin D, 25-hydro xy, total, serum 2023 [facility] ([facility]), [address] [place], [address], 01/22/2024 21:21:44 CMP, serum or plasma 2023 [facility] ([facility]), [address] [place], [address], 01/22/2024 20:40:34 CBC w/ auto diff 2023 [facility] ([facility]), [address] [place], [address], 01/22/2024 18:39:24 lipid panel, serum 2023 [facility] ([facility]), [address] [place], [address], 01/22/2024 20:40:39 Referral None recorded . Procedures None recorded . Surgeries None recorded . Imaging None recorded . Medication Orders None recorded . Patient TargetsNo targets recorded. Patient InstructionsNo instructions recorded. Reason for Referral None Reported. Results Created Date Observation Date Name Description Value Unit Range Abnormal Flag Note LastModifiedBy Organization Detail LastModifiedTime 03/30/20 24 03/30/2024 XR, chest No observ ation record ed. BARCODE Not Available 2023 18:05:22 Result Notes None recorded. Problems Name Problem SNOMED Code Status Onset Date Resolution Date Notes Provider Name and Address Organization Details Recorded Time Closed fracture of right patella 45221915509 740151 Active 2022 Not Available [facility] 3 15:38:15 Cellulit is 197751405 Completed Not Available [facility] 3 06:46:37 Hearing loss 77943343 Active Not Available [facility] 3 15:38:15 Pain of right ankle joint 84325677976 969192 Active 2022 Not Available [facility] 3 15:38:15 Insomnia 571241708 Active 2016 Not Available [facility] 3 15:38:15 Angina pectoris 232273989 Completed Not Available [facility] 3 06:46:38 Nail deformit y 151776660 Completed 202001/16/2022 Not Available [facility] 3 06:46:38 Gastroes ophageal reflux disease 100701281 Active Not Available [facility] 3 15:38:15 Thyroid nodule 155890825 Active 2017 Not Available [facility] 3 15:38:15 Infectio n of sebaceou s cyst 831827561 Completed Not Available [facility] 3 06:46:38 Long-ter m drug therapy Completed 202101/16/2022 Not Available [facility] 3 06:46:39 Edema 320917506 Active 2019 Not Available [facility] 3 15:38:15 Adult health examinat ion Active 2020 Not Available [facility] 3 15:38:15 Thoracic back pain 354616198 Completed Not Available [facility] 3 06:46:39 Rib pain 140927755 Active 2022 Not Available [facility] 3 15:38:15 Hypertri glycerid emia 934151055 Active 2020 Not Available [facility] 3 15:38:15 Knee pain Completed Not Available [facility] 3 06:46:40 Facial lacerati on 284163240 Active 2022 Not Available [facility] 3 15:38:15 Osteoart hritis 929368619 Active Not Available [facility] 3 15:38:15 Onychomy cosis of toenails 195944384 Completed 202101/16/2022 Not Available [facility] 3 06:46:40 Solitary nodule of lung 957437636 Active 2022 Not Available [facility] 3 15:38:15 Solitary nodule of lung 752366262 Completed 201901/16/2022 Not Available [facility] 3 06:46:40 Multiple nodules of lung 468716407 Active 2017 PET 07/02, Benign Not Available [facility] 3 15:38:15 Pain of right knee joint 58328180169 4100 Active 2022 Not Available [facility] 3 15:38:16 Coronary arterios clerosis 96840968 Active 2020 Not Available [facility] 3 15:38:16 Acute upper respirat ory infectio n 33812019 Completed Not Available [facility] 3 06:46:41 Hyperlip idemia 07549820 Active Not Available [facility] 3 15:38:16 [facility]ia l hyperten josé miguel 82511878 Active Not Available [facility] 3 15:38:16 Osteopor osis 45151279 Active 2016 Not Available [facility] 3 15:38:16 Closed fracture of patella 61871992 Active 2022 Not Available [facility] 3 15:38:16 Skin lesion 78145886 Active Not Available [facility] 3 15:38:16 Fracture of patella 93535809 Active 2022 Not Available [facility] 3 15:38:16 Hearing loss 21290084 Active 2022 Not Available [facility] 3 15:38:15 Dysphagi a 25504491 Active 2022 Not Available [facility] 3 15:38:15 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 Active 2022 Not Available [facility] 3 15:38:15 Pain of left knee joint 43889023590 4107 Active 2022 NANNETTE Guerra, [employer] [facility] 3 11:02:59 Osteoart hritis of left knee joint 22394775110 9109 Active 2022 NANNETTE Guerra null, [employer] [facility] 3 08:58:09 Hemorrho ids 84361785 Active 2023 Keegan Farah MD [address], [address] , [employer] [facility] 4 10:26:49 Hypercal cemia 16924759 Active 2023 Keegan Farah MD [address] [facility] [address], [place], [address] , [employer] [facility] 4 08:52:35 Problem Notes None recorded. Procedures Surgical History Date Name Laterality Status Provider Name and Address Organization Details Recorded Time 09/18/19 24 Medicare Wellness CPT Code, subsequent completed Mandy Latham RN [facility] [employer] [facility] 09/18/2023 10:37:37 09/15/19 23 Medicare Wellness CPT Code, subsequent completed Roshni Gutiérrez RN [facility] [employer] [facility] 09/14/2022 11:19:42 02/14/20 22 Most Recent Bone Density completed Roshni Gutiérrez RN [facility] [employer] 09/14/2022 11:21:47 06/30/19 10 Date of Last Colonoscopy completed Not Available [facility] 06/13/2022 06:41:20 Appendectomy completed Not Available [facility] 06/13/2022 06:41:23 Hysterectomy completed Not Available [facility] 06/13/2022 06:41:23 Imaging Results None recorded. Procedure Notes None recorded. Medical Equipment None Reported. Allergies Allergen ID Allergen Name Allergen Category Reaction Reaction Severity Criticality Documentation Date Start Date Code Code System Note Provider Name and Address Organization Details Recorded Time 37625 sulfur dioxide medicatio n rash Not available Not available 06/13/2022 59826 79 RxNorm Not Available [facility] 3 06:54:31 30109 Substance with sulfonami de structure and antibacte rial mechanism of action (substanc e) medicatio n rash Not available Not available 06/13/2022 91870 8003 SNOMED Not Available [facility] 3 06:54:31 02442 codeine medicatio n rash Not available Not available 06/13/2022 2670 RxNorm Not Available [facility] 3 06:54:32 Medications Name Sig Start Date [...] Not Available No t Available Fluad Quad (6 5yr up)(PF) 60 mcg (15 mcg x 4)/0.5mL IM syringe ADMINISTE R 0.5ML IN THE MUSCLE DIRECTED 04/27 completed Not Available Not Available Not Available Vitals Date Recorded Body height Body mass index (BMI) Body weight Body temperature Heart rate Oxygen saturation Oxygen saturation in Arterial blood by Pulse oximetry Systolic blood pressure Diastolic blood pressure Provider Name and Address Organization Details Last Updated DateTime 4 162.56 cm 26.6 kg/m2 04437.8 2 g 97.7 [degF] 62 /min 98 % 98 % 118 mm[Hg] 64 mm[Hg] NANNETTE Mejia - S [facility] [employer] [facility] 4 10:09:40 Social History Question Answer Notes LastModified by Organization Details LastModified Time Tobacco Smoking Status Never Smoker Not Available [facility] 06/13/2022 06:40:29 Do You Have An Advance Directive? Yes MIGRATION.0301 [id number] Information not available 06/13/2022 What Is Your Level Of Alcohol Consumption? None MIGRATION.0301 642717 Information not available 06/13/2022 Are You Blind Or Do You Have Difficulty Seeing? No MIGRATION.0301 774800 Information not available 06/13/2022 What Is Your Level Of Caffeine Consumption? Occasional MIGRATION.0301 962289 Information not available 06/13/2022 How Much Tobacco Do You Chew? None MIGRATION.0301 979038 Information not available 06/13/2022 Are You Deaf Or Do You Have Serious Difficulty Hearing? Yes Hearing Aids MIGRATION.0301 467469 Information not available 06/13/2022 What Type Of Diet Are You Following? REGULAR MIGRATION.0301 364238 Information not available 06/13/2022 Which Illicit Or Recreational Drugs Have You Used? None MIGRATION.0301 955504 Information not available 06/13/2022 What Is Your Occupation? Retired MIGRATION.0301 299524 Information not available 06/13/2022 Have There Been Any Changes To Your Family Or Social Situation? No [email or web address] Information not available 09/18/2023 What Is The Fluoride Status Of Your Home? Fluoridated MIGRATION.0301 437202 Information not available 06/13/2022 Are There Any Guns Present In Your Home? No MIGRATION.0301 393044 Information not available 06/13/2022 Where Do You Live? SingleLevelHouse With Basement MIGRATION.0301 332047 Information not available 06/13/2022 Presence Of Domestic Violence No [email or web address] Information not available 09/14/2022 Guns Present In The Home? No [email or web address] Information not available 09/18/2023 Are You Able To Care For Yourself? Yes [email or web address] Information not available 09/14/2022 Are You Blind Or Do Yo Have Difficulty Seeing? No Information not available 09/14/2022 Are You Deaf Or Do You Have Serious Difficulty Hearing? Yes Hearing Aids [email or web address] Information not available 09/14/2022 General Stress Level? Low Information not available 09/14/2022 Live Alone Of With Others? With Others [email or web address] Information not available 09/14/2022 What Was The Date Of Your Most Recent Tobacco Screening? 09/18/2023 [email or web address] Information not available 09/18/2023 Do You Have Any Pets? No [email or web address] Information not available 09/18/2023 What Is Your Relationship Status? Information not available 09/14/2022 Do You Use Your Seat Belt Or Car Seat Routinely? Yes MIGRATION.0301 198464 Information not available 06/13/2022 Do You Have Smoke And Carbon Monoxide Detectors In Your Home? Yes MIGRATION.0301 569104 Information not available 06/13/2022 Are You Passively Exposed To Smoke? No Information not available 09/18/2023 Are There Any Smokers In Your House? No Information not available 09/18/2023 Do You Use Sunscreen Routinely? Yes MIGRATION.0301 019256 Information not available 06/13/2022 Sex: Female Functional Status Question Answer Note LastModified by Organizat ion Details LastModified Time Do you have difficulty walking or climbing stairs? No MIGRATION.8402003 026 Information not available 06/13/2022 Do you have transportation difficulties? No MIGRATION.7977111 026 Information not available 06/13/2022 Are you able to walk? YESWOREST MIGRATION.8618222 026 Information not available 06/13/2022 Do you have difficulty doing errands alone? No MIGRATION.2331586 026 Information not available 06/13/2022 Are you able to care for yourself? Yes MIGRATION.3973346 026 Information not available 06/13/2022 Do you have difficulty dressing or bathing? No MIGRATION.6317674 026 Information not available 06/13/2022 What is your exercise level? Occasional [email or web address] Information not available 09/18/2023 Mental Status Question Answer Note LastModified by Organizat ion Details LastModified Time Do you have difficulty concentrating, remembering or making decisions? No MIGRATION.496784759 6 Information not available 06/13/2022 Family History Relationship Description Onset Age of this Age Resolved Age Notes LastModified by Organization Details LastModified Time Mother Heart disease MIGRATION.974 [id number] Not available 06/13/2022 06:41:24 Mother Essential hypertension MIGRATION.695 0227732 Not available 06/13/2022 06:41:24 Father Heart disease MIGRATION.137 4102734 Not available 06/13/2022 06:41:24 Father Essential hypertension MIGRATION.204 9877544 Not available 06/13/2022 06:41:24 Sister Family history of malignant neoplasm MIGRATION.389 4843329 Not available 06/13/2022 06:41:24 Unspecified Relation Diabetes mellitus grands on MIGRATION.750 1457111 Not available 06/13/2022 06:41:24 Notes:NO ENT Medical History Condition Response ARTHRITIS Y HIGH CHOLESTEROL / HYPERLIPIDEMIA Y BLOOD CLOTS Y SLEEP DISORDER Y HYPERTENSION Y OSTEOPOROSIS Y Gynecological History Statement/Question Response Date of Last Pap Date of Last Mammogram 10/22/2018 Date of Last Colonoscopy 06/29/2009 Date of Last Mammogram Most Recent Bone Density 02/13/2022 Obstetrics History GPAL:G 0 P 0 0 0 0 Immunizations Vaccine Type Date Status Note Provider Nam e and Address Organization Details Recorded Time Influenza, high-dose, quadrivalent, PF 3 completed Radha Au, NANNETTE null, [place] [facility] 01/14/2023 17:01:22 SARS-COV-2 (COVID-19) vaccine, UNSPECIFIED 1 completed Not Available [facility] 02/21/2023 23:23:27 SARS-COV-2 (COVID-19) vaccine, UNSPECIFIED 1 completed Not Available [facility] 02/21/2023 23:23:27 Influenza, high-dose, trivalent, PF 0 completed Not Available [facility] 02/21/2023 23:23:27 Influenza, split virus, trivalent, preservative 5 completed Not Available [facility] 02/21/2023 23:23:27 Influenza, split virus, quadrivalent, preservative 9 completed Not Available [facility] 02/21/2023 23:23:26 Influenza, split virus, trivalent, preservative 4 completed Not Available [facility] 02/21/2023 23:23:27 Influenza, high-dose, quadrivalent, PF 2 completed Not Available [facility] 02/21/2023 23:23:26 Influenza, high-dose, trivalent, PF 8 completed Not Available [facility] 02/21/2023 23:23:27 Pneumococcal conjugate PCV 13 8 completed Not Available [facility] 02/21/2023 23:23:27 Influenza, split virus, quadrivalent, PF 7 completed Not Available [facility] 02/21/2023 23:23:27 pneumococcal polysaccharide PPV23 6 completed Not Available [facility] 02/21/2023 23:23:27 Influenza, split virus, quadrivalent, PF 6 completed Not Available [facility] 02/21/2023 23:23:27 Influenza, high-dose, trivalent, PF 4 completed Keegan Farah MD [address] [place] [address], [place], [address], [facility] [employer] 01/22/2024 14:18:22 Past Encounters Encounter ID Performer Location Encounter Start Date Encounter Closed Date Diagnosis/Indication Diagnosis SNOMED-CT Code Diagnosis ICD10 Code [id number] Keegan Farah MD [facility] [address] [facility] [place] [address] 01/22/2024 09:48:27 01/22/2024 11:10:46 Essential hypertension 54744750 I10 Coronary arteriosclerosis 43531472 I25.10 Hyperlipidemia 66870839 E78.5 Gastroesop hageal reflux disease 033562103 K21.9 Thyroid nodule 316583059 E04.1 Solitary n odule of lung 224667081 R91.1 Hearing loss 04240208 H9 1.93 Osteoporosis 64776055 M8 1.0 Insomnia 885678594 G47.0 0 Adult heal th examination 273095219 Z00.00 Hypertriglyceridemia 302 698831 E78.1 Multiple n odules of lung 688146904 R91.8 Osteoarthritis 297191401 M19.90 Hemorrhoids 86627207 K64 .9 Long-term drug therapy 188793630 Z79.899 Administra tion of influenza vaccine 83050372 Z23 Health Concerns Section Related Observation LastModified by Organization Detai ls LastModified Time None Recorded Concern Status LastModified by Organization Details LastModified Time None Recorded Payers Encounter Date Sequence Insurance Name Policy Number Policy Briggs Covered Member ID Briggs Member ID Guarantor Name 01/22/2024 1 [facility] - [employer] - MEDICARE SOLUTIONS - MEDICARE COMPLETE (MEDICARE REPLACEMENT HMO) [id number] Monica Lombardi [id number] Monica Lombardi Notes Date Note Type Note Provider Name and Address Organization Details Recorded Time 01/22/2024 text/html Doing fine, compliant to medications, [...] 40 mgCAD- medical management, no symptoms dr dillOsteoporosis- on meds, LAST DEXA 03/06Meds- Alendronate 70 [...] patellar fx, seen dr albert, has healed Keegan Farah MD [address] [facility], [facility] [address], [place], [address], [place] [facility] [employer] [facility] [employer] 01/22/2024 14:18:27 OBGyn Episode No OBEpisode recorded.
--- OUTSIDE RECORDS SUMMARY | 2024-04-04 14:29 | XMS_ITS | Clinical Summary ---
Author Organization [facility] Address [address] [place] [address] Phone Care Team Providers Care Division Sergeant Name Role Phone Keegan Farah MD Primary Care Provider [phone] Allergies Active Allergy Reactions Criticality Noted Date Comments Codeine Hives 05/05/2022 Sulfa Antibiotics Unknown 05/05/2022 Pt sts I can't remember, but the dr told me not to ever take anything with sulfur. Medications alendronate (FOSAMAX) 70 MG Tablet Take 70 mg by mouth every 7 days. ONE DAILY Active amLODIPine (NORVASC) 10 MG Tablet Take 10 mg by mouth daily. ONE DAILY Active lisinopril (PRINIVIL, ZESTRIL) 40 MG Tablet Take 40 mg by mouth daily. ONE DAILY Active simvastatin (ZOCOR) 20 MG Tablet Take 20 mg by mouth every evening. ONE DAILY Active pantoprazole (PROTONIX) 40 MG Pack 40 mg by Per NG tube route daily. ONE DAILY Active calcium 500 MG Tablet Take 600 mg by mouth daily. TWO DAILY Active Multiple Vitamins-Mineral s (MULTIVITAL PO) Take by mouth once. ONE DAILY Active aspirin 325 MG Tablet Take 325 mg by mouth daily. ONE DAILY Active Immunizations Immunization Administration Dates Next Due TDAP Vaccine 05/05/2022 Social History Tobacco Use Types Packs/Day Years Used Date Smoking Tobacco: Never Passive Smoke Exposure: Never Smokeless Tobacco: Never Tobacco Cessation:Counseling Given: Not Answered Alcohol Use Standard Drinks/Week Comments Never 0 (1 standard drink = 0.6 oz pur e alcohol) Comments Unknown Sex and Gender Information Value Date Recorded Sex Assigned at Not on file Legal Sex Female 1:11 PM DENTAL SECRETARY Gender Identity Not on file Sexual Orientation Not on file Last Filed Vital Signs Vital Sign Reading Time Taken Comments Blood Pressure 105/58 05/05/2022 3:30 PM DENTAL SECRETARY Pulse 79 05/05/2022 1:36 PM DENTAL SECRETARY Temperature 36.3 ??C (97.4 ??F) 05/05/2022 1:36 PM CS T Respiratory Rate 20 05/05/2022 1:13 PM DENTAL SECRETARY Oxygen Saturation 90% 05/05/2022 3:30 PM DENTAL SECRETARY Inhaled Oxygen Concentration - - Weight 73 kg (161 lb) 05/05/2022 1:13 PM DENTAL SECRETARY Height 162.6 cm (5' 4 ) 05/05/2022 1:13 PM DENTAL SECRETARY Body Mass Index 27.64 05/05/2022 1:13 PM DENTAL SECRETARY Plan of Treatment Health Maintenance Due Date Last Done Comments DEXA Bone Density 1940 Hepatitis C Virus (HCV) Screening 1940 Zoster Immunization (1 of 2) 1988 Respiratory Syncytial Virus (RSV) Immunization (Adult) (1 - 1-dose 75+ series) 2013 Influenza Immunization (#1) 2023 100 08/2021, 02/14/2021, 01/29/2020, Additional history exists SARS-COV-2 Immunization ( season) 2023 01/26/2021, 07/02/2020, 07/02/2020, Additional history exists Pneumococcal Immunization (50+ years) Completed 05/16/2017, 12/23/2015 DTaP/Tdap/Td Immunization Discontinued 05/05/2022 Hepatitis B Immunization Aged Out No longer eligible based on patient's age to complete this topic Meningococcal Immunization (ACWY) Aged Out No longer eligible based on patient's age to complete this topic Rotavirus Immunization Aged Out No lo nger eligible based on patient's age to complete this topic Insurance MEDICARE C [employer] Care Teams Division Sergeant Relationship Specialty Start Date End Date Keegan Farah MD PCP - General Internal Medicine 05/05/22
--- OUTSIDE RECORDS SUMMARY | 2024-04-04 14:30 | XMS_ITS | CONTINUITY OF CARE DOCUMENT ---
Author Name nanci christine Address Unknown Organization [facility] Address [address] [place] [address] Phone [phone] Care Team Providers Care Software Computer Specialist Name Role Phone Anshu MAYNARD, Maria Ines Unavailable [phone] Keegan Farah MD Unavailable Keegan Farah MD Unavailable [phone] PROBLEMS Condition Status Date Provider Notes ABNORMAL ELECTROCARDIOGRAM active Paulo pineda MD CHEST PAIN-Normal Nuc Stress 03/2022 active Antony Dwyer HYPERCHOLESTEROLEMIA completed - Maria Ines Brasher MD Hyperlipidemia active Maria Ines Brasher MD CAD, cath 01/02/18, LAD 60%, RCA 50%, circ lesion 20% active Maria Ines Brasher MD Edema, ankles active Dinesh Jackson Long-term (current) use of o ther medications completed - Maria Ines Brasher MD Other abnormal blood chemistry completed - Maria Ines Brasher MD Angina pectoris, class III completed 03/28 - Maria Ines Brasher MD Pulmonary embolism completed - Maria Ines Brasher MD HTN--Echo ef 60%, mild MR, T R, 03/2022 active Antony Dwyer ENCOUNTERS Date Type Provider Location Encounter Diag nosis - In-person encounter Office Visit Maria Ines Brasher MD [facility] - In-person encounter Office Visit Maria Ines Brasher MD [facility] - In-person encounter Office Visit Maria Ines Brasher MD [facility] - In-person encounter Office Visit Maria Ines Brasher MD [facility] - In-person encounter Office Visit Maria Ines Brasher MD [facility] Edema, ankles - In-person encounter Office Visit Maria Ines Brasher MD [facility] Pulmonary embolism - In-person encounter Office Visit Maria Ines Brasher MD [facility] CHEST PAIN-Normal Nuc Stress ngina pectoris, class IIIOther abnormal blood chemistryLong-term (current) use of other medications - In-person encounter Office Visit Maria Ines Brasher MD [facility] - In-person encounter Office Visit Maria Ines Brasher MD [facility] Pulmonary embolism - In-person encounter Office Visit Maria Ines Brasher MD [facility] Pulmonary embolism - In-person encounter Office Visit Maria Ines Brasher MD [facility] HYPERCHOLESTEROLEMIAHyperlip idemiaCAD, cath 01/02/18, LAD 60%, RCA 50%, circ lesion 20% - In-person encounter Office Visit Marcos Botello MD [facility] - In-person encounter Office Visit Marcos Botello MD [facility] - In-person encounter Office Visit Paulo Berrios MD [facility] - In-person encounter Office Visit Paulo Berrios MD [facility] ABNORMAL ELECTROCARDIOGRAMCHEST PAIN-Normal Nuc Stress 03/2022HTN--Echo ef 60%, mild MR, TR, 03/2022 VITAL SIGNS Date Observation Value Provider Body Mass Index (Ratio) 26.77 kg/m2 Uri Brasher MD blood pressure, diastolic 76 mm[Hg] Cale rret blood pressure, systolic 120 mm[Hg] [facility] pulse rate 65 /min Daniel y blood pressure, cuff size regular Cale oxygen saturation, oximetry 96 % Daniel respiratory rate E&M 14 /min Daniel weight E&M 156 [lb_av] Daniel height E&M 64 [in_i] [facility] Body Mass Index (Ratio) 26.60 kg/m2 Uri Brasher MD blood pressure, cuff size regular [facility] blood pressure, diastolic 82 mm[Hg] [facility] blood pressure, systolic 151 mm[Hg] [facility] oxygen saturation, oximetry 99 % [facility] respiratory rate E&M 16 /min [facility] pulse rate 166 /min [facility] weight E&M 155 [lb_av] [facility] height E&M 64 [in_i] [facility] Body Mass Index (Ratio) 27.12 kg/m2 Uri Brasher MD blood pressure, cuff size large An darshana Mccray blood pressure, diastolic 84 mm[Hg] An darshana Mccray blood pressure, systolic 128 mm[Hg] Any a Mahendra pulse rate 78 /min Nga Mccray oxygen saturation, oximetry 98 % Nga Mccray weight E&M 158 [lb_av] Nga Mahendra height E&M 64 [in_i] Nga Mccray Body Mass Index (Ratio) 27.74 kg/m2 Uri Brasher MD blood pressure, diastolic 90 mm[Hg] [facility] Josh blood pressure, systolic 116 mm[Hg] James wiggins Josh oxygen saturation, oximetry 98 % Nancy Josh pulse rate 70 /min Nancy Josh weight E&M 161.6 [lb_av] Nancy Josh respiratory rate E&M 16 /min Nancy Keyla mcnally height E&M 64 [in_i] Nancy Josh Body Mass Index (Ratio) 28.49 kg/m2 Uri Brasher MD blood pressure, diastolic 74 mm[Hg] Rebecca gatesLogshalini blood pressure, systolic 127 mm[Hg] Annamarie Belloshalini blood pressure, cuff size regular Qing Haywood blood pressure, diastolic 74 mm[Hg] Qing Haywood blood pressure, systolic 127 mm[Hg] Maile Haywood oxygen saturation, oximetry 99 % Hayley Haywood respiratory rate E&M 16 /min Divine Haywood pulse rate 57 /min Hayley zarate weight E&M 166 [lb_av] Hayley zarate height E&M 64 [in_i] Hayley zarate Body Mass Index (Ratio) 27.98 kg/m2 Uri Brasher MD blood pressure, cuff size large Tr lurdes Johnson blood pressure, diastolic 80 mm[Hg] Tr lurdes Johnson blood pressure, systolic 120 mm[Hg] Jaylyn Johnson oxygen saturation, oximetry 98 % Martin Johnson respiratory rate E&M 16 /min Martin Johnson pulse rate 74 /min Martin Johnson weight E&M 163 [lb_av] Martin Johnson height E&M 64 [in_i] Martin Johnson Body Mass Index (Ratio) 28.83 kg/m2 Uri Brasher MD blood pressure, cuff size regular Cy jagdish Solares blood pressure, diastolic 74 mm[Hg] Cy jagdish Solares blood pressure, systolic 110 mm[Hg] Odessa Solares pulse rate 85 /min Sania hale oxygen saturation, oximetry 98 % Sania Solares respiratory rate E&M 16 /min Sania Solares weight E&M 168 [lb_av] Sania Leahybel l height E&M 64 [in_i] Sania Campbel l Body Mass Index (Ratio) 28.66 kg/m2 Uri Brasher MD blood pressure, cuff size large Ke rri Gruenenfelder blood pressure, diastolic 80 mm[Hg] Ke rri Gruenenfelder blood pressure, systolic 110 mm[Hg] Ker ri Tessnenfelder oxygen saturation, oximetry 98 % Alejandra Annabelleer respiratory rate E&M 16 /min Alejandra G jose eliasenenfelder pulse rate 73 /min Alejandra Tessneveronae lder weight E&M 167 [lb_av] Alejandra Gruenenfe lder height E&M 64 [in_i] Alejandra Gruenenfe lder height E&M 64 [in_i] Frieda Harrington Body Mass Index (Ratio) 28.32 kg/m2 Uri Brasher MD blood pressure, diastolic 74 mm[Hg] Juan David Geurra blood pressure, systolic 120 mm[Hg] Khloe Guerra blood pressure, resting Yes Roe Guerra oxygen saturation, oximetry 97 % Nava Guerra pulse rate 73 /min Nava Velasquez weight E&M 165 [lb_av] Nava Velasquez height E&M 64 [in_i] aNva Velasquez Body Mass Index (Ratio) 28.66 kg/m2 Uri Brasher MD blood pressure, cuff size regular Ke rri Hussein blood pressure, diastolic 76 mm[Hg] Ke rri Hussein blood pressure, systolic 102 mm[Hg] Tahira ri Hussein oxygen saturation, oximetry 98 % Alejandra Savage respiratory rate E&M 18 /min Alejandra hutchinson pulse rate 78 /min Alejandra Del Angel [facility] weight E&M 167 [lb_av] Alejandra Del Angel er height E&M 64 [in_i] Alejandra Bean [facility] Body Mass Index (Ratio) 27.63 kg/m2 Anea miguel [facility] blood pressure, diastolic, left arm 100 m m[Hg] Aneatris [facility] blood pressure, systolic, left arm 167 mm [Hg] Aneatris Brown blood pressure, diastolic, right arm 87 m m[Hg] Aneatris Brown blood pressure, systolic, right arm 173 m m[Hg] Aneatris [facility] blood pressure, diastolic 87 mm[Hg] An eatris [facility] blood pressure, systolic 173 mm[Hg] Ane atris Brown pulse rate 61 /min Aneatris Brown oxygen saturation, oximetry 97 % Aneatris Brown respiratory rate E&M 16 /min Aneatri girish Ruiz weight E&M 161 [lb_av] Aneatris Brown blood pressure, diastolic, left arm 94 mm [Hg] Carissa Stoddard blood pressure, systolic, left arm 165 mm [Hg] Carissa Stoddard blood pressure, diastolic, right arm 93 m m[Hg] Carissa Stoddard blood pressure, systolic, right arm 148 m m[Hg] Carissa Stoddard blood pressure, diastolic 94 mm[Hg] Me medel Stoddard blood pressure, systolic 165 mm[Hg] Tracy pinon Stoddard Body Mass Index (Ratio) 27.63 kg/m2 Mery clemente Stoddard pulse rate 88 /min Carissa Stoddard oxygen saturation, oximetry 98 % Carissa Stoddard respiratory rate E&M 14 /min Carissa Stoddard weight E&M 161 [lb_av] Carissa Stoddard height E&M 64 [in_i] Carissa Stoddard blood pressure, diastolic 93 mm[Hg] Cale Robles RN blood pressure, systolic 142 mm[Hg] Ramesh Robles RN pulse rate 59 /min Ramesh Robles RN oxygen saturation, oximetry 99 % Ramesh Robles RN respiratory rate E&M 18 /min Ramesh mills RN weight E&M 159 [lb_av] Ramesh Robles RN blood pressure, diastolic 85 mm[Hg] Cale Robles RN blood pressure, systolic 130 mm[Hg] Ramesh Robles RN pulse rate 68 /min Ramesh Robles RN oxygen saturation, oximetry 98 % Ramesh Robles RN respiratory rate E&M 18 /min Ramesh mills RN weight E&M 163 [lb_av] Ramesh Robles RN ALLERGIES Allergy Name Onset Date Reaction Criticality Status SULFA Low Criticality active CODEINE Low Criticality active RESULTS Date Observation Value Provider Reference Range Interpretation Location 8 ferritin, serum 87 ng/mL [facility] 15-150 8 iron saturation percent, serum 39 % [facility] 15-55 8 iron, serum 132 ug/dL [facility] 27-139 8 iron binding capacity, unsaturated 210 ug/dL [facility] 804-326 3550/12/1 8 iron binding capacity, total 342 ug/dL [facility] 023-873 5593/12/1 8 free thyroxine index 2.0 [facility] 1.2-4.9 8 triiodothyronine resin uptake 24 % [facility] 24-39 8 thyroxine, serum, total 8.3 ug/dL [facility] 4.5-12.0 8 thyroid stimulating hormone, serum 0.925 u[IU]/mL [facility] 0.450-4.500 8 hemoglobin A1C, blood, as % of total hemoglobin 5.8 % [facility] 4.8-5.6 High 8 lipoprotein, beta, serum, point, quantitative, calculated 95 mg/dL [facility] 0-99 8 HDL cholesterol, serum 52 mg/dL [facility] >39 8 triglyceride, serum, random 183 mg/dL [facility] 0-149 High 8 cholesterol, serum 178 mg/dL [facility] 624-794 1025/12/1 8 basophil count, absolute 0.0 x10E3/uL [facility] 0.0-0.2 8 Eosinophil Absolute Count 0.1 X10E3/UL [facility] 0.0-0.4 8 monocyte count, blood, automated 0.5 X10E3/UL [facility] 0.1-0.9 8 lymphocyte count, blood, automated 2.0 X10E3/UL [facility] 0.7-3.1 8 Absolute Neutrophils 4.1 X10E3/UL [facility] 1.4-7.0 8 basophils as percent of blood leukocytes 1 % [facility] Not Estab. 8 eosinophils as percent of blood leukocytes 2 % [facility] Not Estab. 8 monocytes as percent of blood leukocytes 7 % [facility] Not Estab. 8 lymphocytes as percent of blood leukocytes 30 % [facility] Not Estab. 8 neutrophils as percent of blood leukocytes 60 % [facility] Not Estab. 8 platelet count 198 X10E3/UL [facility] 771-257 4163/12/1 8 red blood cell distribution width 12.3 % [facility] 11.7-15.4 8 mean corpuscular hemoglobin concentration, RBC 33.9 G/DL [facility] 31.5-35.7 8 mean corpuscular hemoglobin, RBC 32.1 pg [facility] 26.6-33.0 8 mean corpuscular volume, RBC 95 fL [facility] 79-97 8 hematocrit, blood 44.5 % [facility] 34.0-46.6 8 hemoglobin, blood 15.1 g/dL [facility] 11.1-15.9 8 erythrocyte (RBC) count 4.70 X10E6/UL [facility] 3.77-5.28 8 leukocyte count, blood 6.8 X10E3/UL [facility] 3.4-10.8 8 alanine aminotransferase (SGPT), serum 15 1/L [facility] 0-32 8 aspartate aminotransferase (SGOT), serum 21 1/L [facility] 0-40 8 alkaline phosphatase, serum 63 1/L [facility] 39-117 8 bilirubin, serum, total 0.4 mg/dL [facility] 0.0-1.2 8 albumin/globulin ratio, serum 1.8 [facility] 1.2-2.2 8 globulin, serum 2.4 [facility] 1.5-4.5 8 albumin, serum 4.3 g/dL [facility] 3.6-4.6 8 protein, total, serum 6.7 g/dL [facility] 6.0-8.5 8 calcium, serum 9.1 mg/dL [facility] 8.7-10.3 8 carbon dioxide, venous blood 22 mmol/L [facility] 20-29 8 chloride, serum 105 mmol/L [facility] 96-106 8 potassium, serum 4.4 mmol/L [facility] 3.5-5.2 8 sodium, serum 141 mmol/L [facility] 712-959 1316/12/1 8 urea nitrogen/creatinine ratio, serum 16 [facility] - 8 eGFR if 74 mL/min/{1 .73_m2} [facility] >59 8 eGFR if not 64 mL/min/{1 .73_m2} [facility] >59 8 creatinine, serum 0.85 mg/dL [facility] 0.57-1.00 8 urea nitrogen, blood 14 mg/dL [facility] 8- 8 blood glucose, random 89 mg/dL [facility] 65-99 HISTORY OF MEDICATION USE Medication Status Instructions Dates Provider Indications Com ments nitroglycerin 0.4 mg tablet, sublingual active 1 tablet under tongue as directed as needed 1 tablet under tongue for chest pain. May repeat every 5 minutes if still having chest pain- to max of 3 tablets per episode.If no relief after 3rd dose, go to ER Antony Dwyer trazodone 50 mg tablet active PRN Hayley Haywood OMEPRAZOLE TABLET DELAYED RELEASE completed take one pill a day for 14 days then off for 3 months then repeat - Sania Solares amlodipine 10 mg tablet active 1 tablet by mouth once a day Alejandra Savage aspirin 325 mg tablet active 1 tablet once a day Maria Ines Brasher MD ELIQUIS 5 MG ORAL TABLET completed one tablet twice daily - Maria Ines Brasher MD CALCIUM TABLET active Take 2 once a day Alejandra Savage MULTIVITAMINS ORAL CAPSULE active 1 tablet once a day Alejandra Savage Fosamax 70 mg tablet active once a week Alejandra Savage ASPIRIN 325 MG ORAL TABLET completed ONE TAB. DAILY - Maria Ines Brasher MD pantoprazole 40 mg tablet,delayed release (DR/EC) active 1 tablet by mouth once a day Alejandra Savage simvastatin 20 mg tablet active 1 tablet once a day Carissa Stoddard AFEDITAB CR 30 MG ORAL TABLET EXTENDED RELEASE 24 HOUR completed daily - Alejandra Hussein lisinopril 40 mg tablet active 1 tablet once a day Alejandra Hussein SOCIAL HISTORY Date Observation Value Provider smoking status Never smoker Antony Dwyer smoking status Never smoker Dawn Azar social history reviewed E&M revi ewed - no changes required Antony Dwyer social history E&M Marital Statu s: Namrata manrique with family/friends E thnicity: Smoking History: P linette has never smoked. Antony Dwyer Exercise counseling yes Nga adkins physical exercise, f requency, days per week yes Nga Mccray caffeine use, averag e drinks per day no Nga Mccray smoking status Never smoker Nga Mccray social history reviewed E&M revi ewed - no changes required Antony Dwyer Exercise counseling yes Nancy Cotton physical exercise, f requency, days per week yes Nancy Moreno caffeine use, averag e drinks per day no Nancy Moreno smoking status Never smoker Nancy Moreno social history reviewed E&M revi ewed - no changes required Antony Dwyer physical exercise, f requency, days per week yes Dinesh Jackson caffeine use, averag e drinks per day no Dinesh Jackson smoking status Never smoker Dinesh Jackson social history reviewed E&M revi ewed - no changes required Dinesh Jackson Exercise counseling yes Jumana Haywood smoking status Never smoker Martin amos social history reviewed E&M revi ewed - no changes required Antony Dwyer smoking status Never smoker Maria Ines Brasher MD social history E&M Marital Statu s: L [place] with family/friends E thnicity: Smoking History: P linette has never smoked. Maria Ines Brasher MD social history reviewed E&M revi ewed - no changes required Maria Ines Brasher MD physical exercise, f requency, days per week yes Sania Solares caffeine use, averag e drinks per day no Sania Solares social history E&M Marital Statu s: L [place] with family/friends E thnicity: Smoking History: P atbaltazar has never smoked. Maria Ines Brasher MD social history reviewed E&M revi ewed - no changes required Maria Ines Brasher MD physical exercise, f requency, days per week yes Alejandra Savage caffeine use, averag e drinks per day no Alejandra Savage smoking status Never smoker Alejandra valentino social history E&M Marital Statu s: L [place] with family/friends E thnicity: Smoking History: P atbaltazar has never smoked. Dinesh Jackson social history reviewed E&M revi ewed - no changes required Dinesh Jackson physical exercise, f requency, days per week yes Frieda Harrington caffeine use, averag e drinks per day no Frieda Harrington smoking status Never smoker [facility] social history E&M Marital Statu s: L [place] with family/friends E thnicity: Smoking History: P linette has never smoked. Maria Ines Brasher MD smoking status Never smoker Maria Ines Brasher MD number of grandchildren Maria Ines Brasher MD T lukas Brasher MD physical exercise, f requency, days per week yes Nava Guerra caffeine use, averag e drinks per day no Nava Guerra social history reviewed E&M revi ewed - no changes required Nava Guerra social history E&M Marital Statu s: L [place] with family/friends E thnicity: Smoking History: Asmita sue has never smoked. Maria Ines Brasher MD social history reviewed E&M revi ewed - no changes required Maria Ines Brasher MD physical exercise, f requency, days per week yes Alejandrasylvia Savage alcohol use, average drinks per day none Alejandra Savage caffeine use, averag e drinks per day no Alejandra Hussein smoking status Never smoker Alejandra Pulidoumair valentino physical exercise, f requency, days per week yes Susan Blunt alcohol use, average drinks per day none Susan Blunt caffeine use, averag e drinks per day no Susan Blunt smoking status Never smoker Susan Blunt social history reviewed E&M revi ewed - no changes required Marcos Botello MD physical exercise, f requency, days per week yes Carissa Stoddard alcohol use, average drinks per day none Carissa Stoddard caffeine use, averag e drinks per day no Carissa Stoddard smoking status Never smoker Carissa chaudhry social history reviewed E&M reviewed Ramesh Robles RN physical exercise, f requency, days per week yes [facility] caffeine use, averag e drinks per day no [facility] alcohol use, average drinks per day none [facility] smoking status [facility] social [facility] E&M Marital Statu s: L [place] with family/friends E thnicity: Ramesh Robles RN caffeine use, averag e drinks per day no Ramesh Robles RN alcohol use, average drinks per day no Ramesh Robles RN smoking status Non-Smoker Ramesh Robles RN social history reviewed E&M reviewed Ramesh Robles RN FUNCTIONAL STATUS Date Observation Value Provider HRA, CV Assess/Plan, Angina (inactive) Management Plan continue current therapy Antony Ahmedzai HRA, CV Assess/Plan, Angina (inactive) Management Plan continue current therapy Antony Ahmedzai HRA, CV Assess/Plan, Angina (inactive) Management Plan continue current therapy Antony Ahmedzai HRA, CV Assess/Plan, Angina (inactive) Management Plan continue current therapy Dinesh Nacht HRA, CV Assess/Plan, Angina (inactive) Management Plan continue current therapy Antony Ahmedzai HRA, CV Assess/Plan, Angina (inactive) Management Plan continue current therapy Maria Ines Brasher MD HRA, CV Assess/Plan, Angina (inactive) Management Plan continue current therapy Dinesh Jackson HRA, CV Assess/Plan, Angina (inactive) Management Plan continue current therapy Maria Ines Brsaher MD HRA, CV Assess/Plan, Angina (inactive) Management Plan continue current therapy Maria Ines Brasher MD MENTAL STATUS Date Observation Value Provider assessment of judgme nt and insight E&M Alert and oriented to time, place and person. Mood and affect are normal. Ramesh Robles RN assessment of judgme nt and insight E&M Alert and oriented to time, place and person. Mood and affect are normal. Ramesh Robles RN FAMILY HISTORY Family Member Condition Mother Family History of Co ronary Artery Disease: Father Family History of Co ronary Artery Disease: INSURANCE PROVIDERS Payer name Policy type / Coverage type [place] red green party ID AARP MEDICARE ADVANTAGE HMO-POS HMO [id number] ADVANCE DIRECTIVES Name Date DISCUSSED - NO DECISION MADE TREATMENT PLAN Date Name Performer [id number],S, Antony Davisza i [id number],B, Antony Welchmedza i [id number],S, Antony Davisza i [id number],S, Antony Ahmedza i [id number],S, Antony Ahmedza i [id number],S, Atnony Ahmedza i [id number],S, Antony medza i [id number],S, Antony medza i [id number],S, Antony medza i [id number],S, Antony medza i [id number],S, Antony medza i [id number],S, Antony medza i [id number],S, Antony medza i [id number],S, Antony medza i [id number],S, [facility] [id number],S, [facility] [id number],S, Antony medza i [id number],S, [facility] [id number],W, Antony medza i [id number],S, Dinesh Nacht [id number],S, Dinesh Nacht [id number],S, Dinesh Nacht [id number],S, Dinesh Nacht [id number],S, Dinesh Nacht [id number],B, Antony medza i [id number],S, Antony medza i [id number],S, Antony medza i [id number],S, Antony Ryanyelena i [id number],S, Antony Back i Cardiology:This visi t has been a part of the consistent, comprehensive, and ongoing management of the chronic medical condition(s) listed above for the patient. Maria Ines Brasher MD Cardiology Antony Dwyer Cardiology Antony Dwyer Cardiology: H er updated medication list for this problem includes: Simvastatin 20 Mg Tablet (Simvastatin) ..... 1 tablet once a day Antony Dwyer Cardiology Antony Dwyer Cardiology: B P today: 120/76 P rior BP: 151/82 (03/05/2023) Labs Reviewed: C reat: 0.85 (04/01/2020) C hol: 178 (04/01/2020) HDL: 52 (04/01/2020) LDL: 95 (04/01/2020) T (04/01/2020) Her updated medication list for this problem includes: Aspirin 325 Mg Tablet (Aspirin) ..... 1 tablet once a day Lisinopril 40 Mg Tablet (Lisinopril) ..... 1 tablet once a day Amlodipine 10 Mg Tablet (Amlodipine) ..... 1 tablet by mouth once a day Antony Welchmedzai Cardiology Antony Welchmedzarosalinda Cardiology Antony Welchmedzarosalinda Cardiology Antony Welchmedzai Cardiology Antony Ahmedzai Cardiology Antony Ahmedzai Cardiology Antony Ahmedzai Cardiology Antony Welchmedzai Cardiology Antony Welchmedzai Cardiology Antony Welchmedzai Cardiology Antony Welchmedzai Telehealth Antony Dwyer Telehealth Antony Dwyer Telehealth Antony Dwyer Telehealth Antony Ahmedzai Telehealth Antony Ahmedzai Cardiology Antony Ahmedzai Cardiology Antony Ahmedzai Cardiology Antony Ahmedzai Cardiology Antony Ahmedzai Cardiology Dinesh Nacht Cardiology Dinesh Nacht Cardiology Dinesh Nacht Cardiology Dinesh Nacht Cardiology Dinesh Nacht Cardiology Antony Ahmedzai Cardiology Antony Ahmedzai Cardiology Antony Ahmedzai Cardiology Antony Ahmedzai Cardiology Antony Ahmedzai Cardiology followup :Her updated medication list for this problem includes: Amlodipine Besylate 10 Mg Oral Tablet (Amlodipine besylate) ..... One tab by mouth daily Aspirin 325 Mg Oral Tablet (Aspirin) ..... One tab. daily Lisinopril 40 Mg Oral Tablet (Lisinopril) ..... One tab. daily B P today: 110/74 P rior BP: 110/80 (03/28/2020) Maria Ines Brasher MD Cardiology followup :Her updated medication list for this problem includes: Simvastatin 20 Mg Oral Tablet (Simvastatin) ..... One tab. daily LDL 67 in 05/2019. Maria Ines Brasher MD Cardiology followup :No chest pain. Reports chest discomfort only with anxiety. Maria Ines Brasher MD TeleHealth imyd 1 yr f/up Maria Ines Brasher MD [facility] 1 yr f/up Maria Ines Brasher MD [facility] 1 yr f/up Maria Ines Brasher MD [facility] 1 yr f/up Maria Ines Brasher MD Cardiology Maria Ines Brasher MD Cardiology Maria Ines Brasher MD Cardiology: CT scan showed right lower lobe pulmonary emboli. She is on Elqiuis and notes improvement in her SOB. Maria Ines Brasher MD Cardiology Maria Ines Brasher MD Cardiology Follow up Maria Ines owens MD Cardiology Follow up Maria Ines owens MD Cardiology Follow up Maria Ines owens MD Cardiology Follow up Maria Ines owens MD test results: H er updated medication list for this problem includes: Lisinopril 10 Mg Tabs (Lisinopril) ..... One tab. daily Afeditab Cr 30 Mg Tb24 (Nifedipine) ..... Daily BP today: 142/93 Prior BP: 130/85 (04/02/2008) N uclear Stress Findings: 1. Normal exercise capacity 2 . Normal hemodynamic response to exercise 3. No diagnostic ST or T changes 4. No significant arrhythmias 5. There is no evidence for exercise-induced myocardial ischemia 6 . Normal left ventricular size and function with a calculated ejection fraction of 64%. 7. Myocardial scintigraphy is normal without evidence for previous myocardial infarction or reversible ischemia. [facility] (04/12/2008) E chocardiogram: The left ventricular chamber size is normal. Normal left ventricular wall thickness.Normal left ventricular function. LV EF is estimated at 55%There is E: A reversal of mitral inflow velocities consistent with diastolic dysfunction. T he mitral valve leaflets appear (sclerotic) thickened. The aortic valve appears mildly thickened (sclerotic). (1+) Mild m itral regurgitation. N o evidence of aortic valve regurgitation. M inimal to (1+) mild tricuspid regurgitation. M inimal pulmonic regurgitation. [facility] (04/12/2008) n othing to worry about. Paulo Berrios MD test results: H er updated medication list for this problem includes: Lisinopril 10 Mg Tabs (Lisinopril) ..... One tab. daily Afeditab Cr 30 Mg Tb24 (Nifedipine) ..... Daily BP today: 142/93 P rior BP: 130/85 (04/02/2008) Paulo Berrios MD office visit: H er updated medication list for this problem includes: Lisinopril 10 Mg Tabs (Lisinopril) ..... One tab. daily Afeditab Cr 30 Mg Tb24 (Nifedipine) ..... Daily o k Paulo Berrios MD office visit: H er updated medication list for this problem includes: Lisinopril 10 Mg Tabs (Lisinopril) ..... One tab. daily Afeditab Cr 30 Mg Tb24 (Nifedipine) ..... Daily BP today: 130/85 Prior BP: / () N uclear Stress Findings: No definitive evidence of ischemia by EKG criteria. Normal myocardial perfusion without infarct or ischemia. Normal gated study with LVEF 61%. [facility] (08/07/2006) i would rx a repeat stress test. the ekg that was done at dr tierney's office had the limb leads reversed Paulo Berrios MD office visit: H er updated medication list for this problem includes: Lisinopril 10 Mg Tabs (Lisinopril) ..... One tab. daily Afeditab Cr 30 Mg Tb24 (Nifedipine) ..... Daily BP today: 130/85 Prior BP: / () N uclear Stress Findings: No definitive evidence of ischemia by EKG criteria. Normal myocardial perfusion without infarct or ischemia. Normal gated study with LVEF 61%. [facility] (08/07/2006) Orders: S tress Test - Nuclear ([id number]) Paulo Berrios MD Date Name Complete Echo Stress Regadenoson TSH, free T4, total T3 HEMOGLOBIN A1c IRON AND TOTAL IRON BINDING CAPACITY FERRITIN CBC (INCLUDES DIFF/P LT) LIPID PANEL COMPREHENSIVE METABO LIC PANEL, W/EGFR Stress Regadenoson STR - Nuclear Complete Echo Complete Echo Stress Test - Nuclea r HISTORY OF PROCEDURES Procedure Date Procedure Name Provider Procedure Notes S tatus Complex e/m visit add on Maria Ines Brasher MD completed EKG Maria Ines Brasher MD completed EKG Maria Ines Brasher MD completed EKG Maria Ines Brasher MD completed
--- OUTSIDE RECORDS SUMMARY | 2024-04-04 21:49 | XMS_ITS | Clinical Summary ---
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 Gender Identity Not on file Sexual Orientation Not on file Last Filed Vital Signs Vital Sign Reading Time Taken Comments Blood Pressure 105/58 05/05/2022 3:30 PM HONING MACHINE OPERATOR SEMIAUTOMATIC Pulse 79 05/05/2022 1:36 PM HONING MACHINE OPERATOR SEMIAUTOMATIC Temperature 36.3 ??C (97.4 ??F) 05/05/2022 1:36 PM CS T Respiratory Rate 20 05/05/2022 1:13 PM HONING MACHINE OPERATOR SEMIAUTOMATIC Oxygen Saturation 90% 05/05/2022 3:30 PM HONING MACHINE OPERATOR SEMIAUTOMATIC Inhaled Oxygen Concentration - - Weight 73 kg (161 lb) 05/05/2022 1:13 PM HONING MACHINE OPERATOR SEMIAUTOMATIC Height 162.6 cm (5' 4 ) 05/05/2022 1:13 PM HONING MACHINE OPERATOR SEMIAUTOMATIC Body Mass Index 27.64 05/05/2022 1:13 PM HONING MACHINE OPERATOR SEMIAUTOMATIC Plan of Treatment Health Maintenance Due Date [...] topic Insurance MEDICARE C [employer] Care Teams [place] Aide Relationship Specialty Start Date End Date Keegan Farah MD PCP - General Internal Medicine 05/05/22
--- OUTSIDE RECORDS SUMMARY | 2024-04-04 21:49 | XMS_ITS | CONTINUITY OF CARE DOCUMENT ---
Author Name nanci christine Address Unknown Organization [facility] Address [address] [place] [address] Phone [phone] Care Team Providers Care Mannequin Wig Maker Name Role Phone Anshu MAYNARD, Maria Ines Unavailable Keegan Farah MD Unavailable Keegan Farah MD Unavailable PROBLEMS Condition Status Date Provider Notes ABNORMAL [...] encounter Office Visit Maria Ines Brasher MD [facility] - In-person encounter Office Visit Maria Ines Brasher MD [facility] - In-person encounter Office Visit Maria Ines Brasher MD [facility] - In-person encounter Office Visit Maria Ines Brasher MD [facility] - In-person encounter Office Visit Maria Ines Brasher MD [facility] Edema, ankles - In-person encounter Office Visit Maria Ines Brasher MD [facility] Pulmonary embolism - In-person encounter Office Visit Maria Ines Brasher MD [facility] CHEST PAIN-Normal Nuc Stress ngina pectoris, class IIIOther abnormal blood chemistryLong-term (current) use of other medications - In-person encounter Office Visit Maria Ines Brasher MD [facility] - In-person encounter Office Visit Maria Ines Brasher MD [facility] Pulmonary embolism - In-person encounter Office Visit Maria Ines Brasher MD [facility] Pulmonary embolism - In-person encounter Office Visit Maria Ines Brasher MD [facility] HYPERCHOLESTEROLEMIAHyperlip idemiaCAD, cath 01/02/18, LAD 60%, RCA 50%, circ lesion 20% - In-person encounter Office Visit Marcos Botello MD [facility] - In-person encounter Office Visit Marcos Botello MD [facility] - In-person encounter Office Visit Paulo Berrios MD [facility] - In-person encounter Office Visit Paulo Berrios MD [facility] ABNORMAL ELECTROCARDIOGRAMCHEST PAIN-Normal Nuc Stress 03/2022HTN--Echo ef 60%, mild MR, TR, 03/2022 VITAL SIGNS Date Observation Value Provider Body Mass Index (Ratio) 26.77 kg/m2 Uri Brasher MD blood pressure, diastolic 76 mm[Hg] Cale rret blood pressure, systolic 120 mm[Hg] [facility] pulse rate 65 /min Daniel y blood pressure, cuff size regular Cale oxygen saturation, oximetry 96 % Daniel respiratory rate E&M 14 /min Daniel weight E&M 156 [lb_av] Daniel height E&M 64 [in_i] [facility] Body Mass Index (Ratio) 26.60 kg/m2 Uri Brasher MD blood pressure, cuff size regular [facility] blood pressure, diastolic 82 mm[Hg] [facility] blood pressure, systolic 151 mm[Hg] [facility] oxygen saturation, oximetry 99 % [facility] respiratory rate E&M 16 /min [facility] pulse rate 166 /min [facility] weight E&M 155 [lb_av] [facility] height E&M 64 [in_i] [facility] Body Mass Index (Ratio) 27.12 kg/m2 Uri [...] blood pressure, diastolic 74 mm[Hg] Juan David Guerra blood pressure, systolic 120 mm[Hg] Khloe Guerra blood pressure, resting Yes Roe Guerra oxygen saturation, oximetry 97 % Nava Guerra pulse rate 73 /min Nava Velasquez weight E&M 165 [lb_av] Nava Velasquez height E&M 64 [in_i] Nava Velasquez Body Mass Index (Ratio) 28.66 kg/m2 Uri Brasher MD blood pressure, cuff size regular Ke rri Hussein blood pressure, diastolic 76 mm[Hg] Ke rri Hussein blood pressure, systolic 102 mm[Hg] Tahira ri Hussein oxygen saturation, oximetry 98 % Alejandra Savage respiratory rate E&M 18 /min Alejandra hutchinson pulse rate 78 /min Alejandra Del Angel [facility][note 3] weight E&M 167 [lb_av] Alejandra Del Angel er height E&M 64 [in_i] Alejandra Bean [facility][note 3] Body Mass Index (Ratio) 27.63 kg/m2 Anea miguel [facility] blood pressure, diastolic, left arm 100 m m[Hg] Aneatris [facility] blood pressure, systolic, left arm 167 mm [Hg] Aneatris Brown blood pressure, diastolic, right arm 87 m m[Hg] Aneatris Brown blood pressure, systolic, right arm 173 m m[Hg] Aneatris [facility] blood pressure, diastolic 87 mm[Hg] An eatris [facility] blood pressure, systolic 173 mm[Hg] Ane atris [...] iron binding capacity, unsaturated 210 ug/dL [facility] [phone]/12/1 8 iron binding capacity, total 342 ug/dL [facility] [phone]/12/1 8 free thyroxine index 2.0 [facility] 1.2-4.9 [...] High 8 cholesterol, serum 178 mg/dL [facility] 140-240 0236/12/1 8 basophil count, absolute 0.0 x10E3/uL [employer] [...] Estab. 8 platelet count 198 X10E3/UL [facility] [phone]/12/1 8 red blood cell distribution width 12.3 [...] 3.5-5.2 8 sodium, serum 141 mmol/L [facility] [phone]/12/1 8 urea nitrogen/creatinine ratio, serum 16 [employer] [...] no Frieda Harrington smoking status Never smoker [facility] social history E&M Marital Statu s: L [...] per day none [facility] E&M Marital Statu s: [...] Payer name Policy type / Coverage type [place] republic[place] ID [employer] MEDICARE ADVANTAGE HMO-POS HMO [id number] ADVANCE DIRECTIVES Name Date DISCUSSED - NO DECISION MADE TREATMENT PLAN Date Name Performer [id number],S, Antony Davisza i [id number],B, Antony Welchmedza i [id number],S, Antony Davisza i [id number],S, Antony Ahmedza i [id number],S, Antony Ahmedza i [id number],S, Antony Ahmedza i [id number],S, Antony medza i [id number],S, Antony medza i [id number],S, Antony medza i [id number],S, Antony medza i [id number],S, Antony medza i [id number],S, Antony medza i [id number],S, Antony medza i [id number],S, Antony medza i [id number],S, [facility] [id number],S, [facility] [id number],S, Antony medza i [id number],S, [facility] [id number],W, Antony medza i [id number],S, Dinesh Nacht [id number],S, Dinesh Nacht [id number],S, Dinesh Nacht [id number],S, Dinesh Nacht [id number],S, Dinesh Nacht [id number],B, Antony medza i [id number],S, Antony medza i [id number],S, Antony medza i [id number],S, Antony Ryanyelena i [id number],S, Antony Back i Cardiology:This visi t has [...] for previous myocardial infarction or reversible ischemia. [facility] (04/12/2008) E chocardiogram: The left ventricular [...] mild tricuspid regurgitation. M inimal pulmonic regurgitation. [facility] (04/12/2008) n othing to worry about. [...] ischemia. Normal gated study with LVEF 61%. [facility] (08/07/2006) i would rx a repeat [...] ischemia. Normal gated study with LVEF 61%. [facility] (08/07/2006) Orders: S tress Test - Nuclear ([id number]) Paulo Berrios MD Date Name Complete Echo [...]
--- OUTSIDE RECORDS SUMMARY | 2024-04-04 21:49 | XMS_ITS | Encounter Summary ---
Author Organization [facility] Address [address] [place] [address] Phone Care Team Providers Care Street Light Cleaner Name Role Phone Keegan Farah MD Primary Care Provider [phone] Reason for Visit * Reason Comments Fall Encounter Details Date Type Department Care Team (Late st Contact Info) Description 05/05/2022 1:12 PM DIRECTOR OF MOBILE MARKETING - 05/05/2022 6:11 PM DIRECTOR OF MOBILE MARKETING Emergency [facility] [address] [place] [address] Myron Akins MD [address] [place] [id number] Fall down stairs, initial encounter Discharge [...] on file Legal Sex Female 1:11 PM DIRECTOR OF MOBILE MARKETING Gender Identity Not on file Sexual Orientation Not on file COVID-19 Exposure Response Date Recorded In the last 10 days, have yo u been in contact with someone who was confirmed or suspected to have Coronavirus/COVID-19? No / Unsure 05/05/2022 1:11 PM DIRECTOR OF MOBILE MARKETING documented as of this encounter Last Filed Vital Signs Vital Sign Reading Time Taken Comments Blood Pressure 105/58 05/05/2022 3:30 PM DIRECTOR OF MOBILE MARKETING Pulse 79 05/05/2022 1:36 PM DIRECTOR OF MOBILE MARKETING Temperature 36.3 ??C (97.4 ??F) 05/05/2022 1:36 PM CS T Respiratory Rate 20 05/05/2022 1:13 PM DIRECTOR OF MOBILE MARKETING Oxygen Saturation 90% 05/05/2022 3:30 PM DIRECTOR OF MOBILE MARKETING Inhaled Oxygen Concentration - - Weight 73 kg (161 lb) 05/05/2022 1:13 PM DIRECTOR OF MOBILE MARKETING Height 162.6 cm (5' 4 ) 05/05/2022 1:13 PM DIRECTOR OF MOBILE MARKETING Body Mass Index 27.64 05/05/2022 1:13 PM DIRECTOR OF MOBILE MARKETING documented in this encounter Discharge Instructions * Discharge Instructions* Myron Akins MD - 05/05/2022 5:20 PM DIRECTOR OF MOBILE MARKETING WOUND CARE INSTRUCTIONS You have been treated [...] because they may have cumulative side effects. [place] also has addictive potential so you were [...] or you do not recover as expected. CTOR OF MOBILE MARKETING CTOR OF MOBILE MARKETING CTOR OF MOBILE MARKETING * Attachments The following attachments cannot be sent through Care Everywhere. * Laceration Care Adult [id number] ([place]) * Acute Compartment Syndrome ([place]) documented in this encounter Medications at Time [...] patient did not receive treatment per ECC. Downstream Biomanufacturing Technician contacted PMD's office to update about result, verify patient active and fax number. Downstream Biomanufacturing Technician faxed culture and sensitivity with positive fax confirmation. CTOR OF MOBILE MARKETING * Erica Aparicio CNA - 05/05/2022 5:15 PM CST Downstream Biomanufacturing Technician put knee immobilizer on patient. Downstream Biomanufacturing Technician got patient up and walked patient with walker. Patient showed no distress at this time, patient denies pain. Patient was able to walk without difficulties. Downstream Biomanufacturing Technician informed MD Akins of ambulation CTOR OF MOBILE MARKETING * Roshni Harris CMA - 05/05/2022 3:41 PM CST Laceration on right cheekbone was cleaned and irrigated. Pt tolerated well. CTOR OF MOBILE MARKETING CTOR OF MOBILE MARKETING * Myron Akins MD - 05/05/2022 1:18 [...] Abnormality Status --------- ------ CBC with Auto Differential[[id number]] Final result Please view results for these [...] patient would rather be discharged home with [facility] hospital. We discussed that she would need [...] has occurred, please notify provider via PALS ([phone]). Medical Decision Making Chest pain, unspecified type: [...] unspecified type 4. Facial laceration, initial encounter CTOR OF MOBILE MARKETING * Sidney Cruz RN - 05/05/2022 1:15 [...] Behavioral Health and Patient Safety precautions ordered? CTOR OF MOBILE MARKETING * Angel Coreas RN - 05/05/2022 1:12 PM CST Bed: ED-23 Expected date: Expected time: Means of arrival: Comments: CTOR OF MOBILE MARKETING documented in this encounter Plan of Treatment [...] LACERATION REPAIR Routine 05/05/2022 5:3 6 PM DIRECTOR OF MOBILE MARKETING LACERATION REPAIR Routine 05/05/2022 5:3 4 PM [address] MOBILE [address] [address] CHEST ABDOMEN AND PELVIS W CONTRAST Stat with Interpretation 05/05/2022 2:36 PM DIRECTOR OF MOBILE MARKETING CT CERVICAL SPINE WO/ CONTRAST Stat with Interpretation 05/05/2022 2:35 PM DIRECTOR OF MOBILE MARKETING CT FACIAL BONES WO CONTRAST Stat with Interpretation 05/05/2022 2:35 PM DIRECTOR OF MOBILE MARKETING CT HEAD OR BRAIN WO CONTRAST Stat with Interpretation 05/05/2022 2:35 PM DIRECTOR OF MOBILE MARKETING XR KNEE MINIMUM 4 VIEWS RIGHT STAT 05/05/2022 2:22 PM DIRECTOR OF MOBILE MARKETING XR CHEST SINGLE VIEW PORTABLE Stat with Interpretation 05/05/2022 1:53 PM DIRECTOR OF MOBILE MARKETING URINALYSIS MICROSCOPIC IF INDICATED STAT 05/05/2022 1:49 PM DIRECTOR OF MOBILE MARKETING CBC WITH AUTO DIFFERENTIAL STAT 05/05/2022 1:49 PM DIRECTOR OF MOBILE MARKETING APTT (PTT) STAT 05/05/2022 1:49 PM DIRECTOR OF MOBILE MARKETING PROTIME (PT) (PROTHROMBIN TIME) STAT 05/05/2022 1:49 PM DIRECTOR OF MOBILE MARKETING POCT CREATININE STAT 05/05/2022 1:49 PM DIRECTOR OF MOBILE MARKETING CULTURE, URINE STAT 05/05/2022 1:49 PM DIRECTOR OF MOBILE MARKETING CMP (COMPREHENSIVE METABOLIC PANEL) STAT 05/05/2022 1:49 PM DIRECTOR OF MOBILE MARKETING COMPLETE BLOOD COUNT (CBC) WITH DIFF STAT 05/05/2022 1:49 PM DIRECTOR OF MOBILE MARKETING EKG 12 LEAD STAT 05/05/2022 1:45 PM DIRECTOR OF MOBILE MARKETING documented in this encounter Results * Laceration Repair (05/05/2022 5:36 PM DIRECTOR OF MOBILE MARKETING) Narrative Myron Akins MD - 05/05/2022 5:36 PM DIRECTOR OF MOBILE MARKETING Myron Akins MD ? 05/05/2022 ??5:40 PM [...] Result * Laceration Repair (05/05/2022 5:34 PM DIRECTOR OF MOBILE MARKETING) Narrative Myron Akins MD - 05/05/2022 5:34 PM DIRECTOR OF MOBILE MARKETING Myron Akins MD ? 05/05/2022 ??5:40 PM [...] AND PELVIS W CONTRAST (05/05/2022 2:36 PM DIRECTOR OF MOBILE MARKETING) Anatomical Region Laterality Modality Chest, Abdomen, Pelvis N/A Computed Tomography Narrative 05/05/2022 3:30 PM DIRECTOR OF MOBILE MARKETING EXAMINATION: CT CHEST ABDOMEN AND PELVIS W [...] CERVICAL SPINE WO/ CONTRAST (05/05/2022 2:35 PM DIRECTOR OF MOBILE MARKETING) Anatomical Region Laterality Modality Spine N/A Computed Tomogra phy Narrative 05/05/2022 3:08 PM DIRECTOR OF MOBILE MARKETING EXAMINATION: CT CERVICAL SPINE WO/ CONTRAST 05/05/2022 [...] FACIAL BONES WO CONTRAST (05/05/2022 2:35 PM DIRECTOR OF MOBILE MARKETING) Anatomical Region Laterality Modality Head N/A Computed Tomogra phy Narrative 05/05/2022 3:11 PM DIRECTOR OF MOBILE MARKETING EXAMINATION: CT FACIAL BONES WO CONTRAST 05/05/2022 [...] OR BRAIN WO CONTRAST (05/05/2022 2:35 PM DIRECTOR OF MOBILE MARKETING) Anatomical Region Laterality Modality Head N/A Computed Tomogra phy Narrative 05/05/2022 3:06 PM DIRECTOR OF MOBILE MARKETING EXAMINATION: CT HEAD OR BRAIN WO CONTRAST [...] MINIMUM 4 VIEWS RIGHT (05/05/2022 2:22 PM DIRECTOR OF MOBILE MARKETING) Anatomical Region Laterality Modality LOWER EXTREMITY, knee Right Computed R adiography Narrative 05/05/2022 2:30 PM DIRECTOR OF MOBILE MARKETING EXAMINATION: XR KNEE MINIMUM 4 VIEWS RIGHT [...] SISSY GORDON MD Date of Signature: ??05/05/2022 14:30:09 [...] CHEST SINGLE VIEW PORTABLE (05/05/2022 1:53 PM DIRECTOR OF MOBILE MARKETING) Anatomical Region Laterality Modality Chest N/A Computed Radiogr aphy Narrative 05/05/2022 1:54 PM DIRECTOR OF MOBILE MARKETING EXAMINATION: XR CHEST SINGLE VIEW PORTABLE INDICATIONS: [...] Date of Signature: ??05/05/2022 13:54:10 Procedure Note Sisys Gordon MD - 05/05/2022 EXAMINATION: XR CHEST [...] Result * Culture, Urine (05/05/2022 1:49 PM DIRECTOR OF MOBILE MARKETING) CULTURE RESULTS ESCHERICHIA COLI DMH VITEK II 05/07/2022 7:44 AM DIRECTOR OF MOBILE MARKETING [facility] Urine URINE SPECIMEN COLLECTION, CLEAN CATCH / Unknown Non-Phlebotomy Collection / Unknown 05/05/2022 1:49 PM DIRECTOR OF MOBILE MARKETING 05/05/2022 1:55 PM DIRECTOR OF MOBILE MARKETING Narrative Organism Antibiotic Method Susceptibility Escherichia coli [...] MD MICROBIOLOGY - GENERAL ORDERABLES Final Result [address] [address] * POCT Creatinine (05/05/2022 1:49 PM DIRECTOR OF MOBILE MARKETING) CREATININE - POCT 0.80 0.4 - 1.1 mg/dL 05/05/2022 2:01 PM DIRECTOR OF MOBILE MARKETING [facility] Blood Venipuncture / Unknown 05/05/2022 1:49 PM DIRECTOR OF MOBILE MARKETING 05/05/2022 2:01 PM DIRECTOR OF MOBILE MARKETING us Myron Akins MD POINT OF CARE TESTING Final Result [facility] [address] [place] [address] * CBC with Auto Differential (05/05/2022 1:49 PM DIRECTOR OF MOBILE MARKETING) WBC 7.68 3.90 - 11.00 10(3)/mcL 05/05/2022 1:59 PM [facility] RBC 4.79 3.80 - 5.20 10(6)/mcL 05/05/2022 1:59 PM [facility] HEMOGLOBIN (HGB) 15.5 11.7 - 16.0 g/dL 05/05/2022 1:59 PM [facility] HEMATOCRIT (HCT) 46.2 34.9 - 46.9 % 05/05/2022 1:59 PM [facility] MCV 96.5 80.0 - 100.0 fL 05/05/2022 1:59 PM [facility] MCH 32.4 26.5 - 33.9 pg 05/05/2022 1:59 PM [facility] MCHC 33.5 31.5 - 36.0 g/dL 05/05/2022 1:59 PM [facility] PLATELET COUNT 161 140 - 445 10(3)/mcL 05/05/2022 1:59 PM [facility] MPV 12.7 >=0.0 fL 05/05/2022 1:59 PM [facility] RDW 13.0 12.0 - 15.0 % 05/05/2022 1:59 PM [facility] NEUTROPHILS 62.3 % 05/05/2022 1:59 PM [facility] LYMPHOCYTES 29.2 % 05/05/2022 1:59 PM [facility] MONOCYTES 5.9 % 05/05/2022 1:59 PM [facility] EOSINOPHILS 1.6 % 05/05/2022 1:59 PM [facility] IMMATURE GRANULOCYTE % 0.5 % 05/05/2022 1:59 PM [facility] BASOPHILS 0.5 % 05/05/2022 1:59 PM [facility] ABSOLUTE NEUTROPHILS 4.79 1.40 - 7.30 10(3)/mcL 05/05/2022 1:59 PM [facility] ABSOLUTE LYMPHOCYTES 2.24 1.30 - 2.90 10(3)/mcL 05/05/2022 1:59 PM [facility] ABSOLUTE MONOCYTES 0.45 0.10 - 0.80 10(3)/mcL 05/05/2022 1:59 PM [facility] ABSOLUTE EOSINOPHIL 0.12 0.00 - 0.30 10(3)/[facility] 05/05/2022 1:59 PM [facility] ABSOLUTE BASOPHILS 0.04 0.00 - 0.10 10(3)/[facility] 05/05/2022 1:59 PM [facility] ABSOLUTE IMMATURE GRANULOCYTE 0.04 0.00 - 0.10 10 (3) mcL. 05/05/2022 1:59 PM [facility] NRBC PER 100 WBC 0.0 0.0 - 0.0 % 05/05/2022 1:59 PM [facility] ABSOLUTE NRBC 0.00 10 (3) mcL. 05/05/2022 1:59 PM [facility] Blood Venipuncture / Unknown 05/05/2022 1:49 PM DIRECTOR OF MOBILE MARKETING 05/05/2022 1:55 PM DIRECTOR OF MOBILE MARKETING us Myron Akins MD HEMATOLOGY ORDERABLES Final Result [address] [address] * APTT (PTT) (05/05/2022 1:49 PM DIRECTOR OF MOBILE MARKETING) PTT 23 23 - 35 sec 05/05/2022 2:10 PM [facility] Comment:Reference Ranges hav e been updated. Blood Venipuncture / Unknown 05/05/2022 1:49 PM DIRECTOR OF MOBILE MARKETING 05/05/2022 1:55 PM DIRECTOR OF MOBILE MARKETING Myron Akins MD HEMATOLOGY ORDERABLES Final Result Performing Organization Address [facility]/ZIP Co de Phone Number [address] [address] * (ABNORMAL) PROTIME (PT) (PROTHROMBIN TIME) (05/05/2022 1:49 PM DIRECTOR OF MOBILE MARKETING) PROTIME-PATIENT 14.6(H) 11.5 - 14.3 sec 05/05/2022 2:08 PM [facility] Comment: Reference Ranges have been updated. INR 1.2(H) 0.9 - 1.1 05/05/2022 2:08 PM [facility] Comment: Reference Ranges have been updated. Recommended Ranges: ?? Standard oral anticoagulant ? INR: ?2.0 - 3.0 ?? High dose therapy ? INR: ?2.5 - 3.5 Blood Venipuncture / Unknown 05/05/2022 1:49 PM DIRECTOR OF MOBILE MARKETING 05/05/2022 1:55 PM DIRECTOR OF MOBILE MARKETING Myron Akins MD HEMATOLOGY ORDERABLES Final Result Performing Organization Address [facility] Co de Phone Number [address] [address] * (ABNORMAL) Urinalysis Microscopic If Indicated (05/05/2022 1:49 PM DIRECTOR OF MOBILE MARKETING) [facility] SPECIFIC GRAVITY 1.008 1.003 - 1.035 05/05/2022 2:04 PM [facility] URINE PH 6.0 5.0 - 8.0 05/05/2022 2:04 PM [facility] WBC ESTERASE Trace(A) Negative 05/05/2022 2:04 PM [facility] NITRITE Negative Negative 05/05/2022 2:04 PM [facility] PROTEIN, RANDOM URINE Negative Negative 05/05/2022 2:04 PM [facility] URINE GLUCOSE, QUAL Negative Negative 05/05/2022 2:04 PM [facility] URINE KETONES Negative Negative 05/05/2022 2:04 PM [facility] UROBILINOGEN <2.0 <2.0 mg/dL 05/05/2022 2:04 PM [facility] URINE BILIRUBIN Negative Negative 3 2:04 PM [facility] URINE BLOOD Negative Negative erick/ul 05/05/2022 2:04 PM [facility] URINALYSIS COLOR Yellow Yellow 05/05/19 2:04 PM [facility] URINALYSIS CLARITY Clear Clear 05/05/2022 2:04 PM [facility] WBC (Urine) 0-5 0-5, Negative /hpf 05/05/2022 2:04 PM [facility] BACTERIA, URINE Many(A) None, Absent /hpf 05/05/2022 2:04 PM [facility] URINE SQUAMOUS EPITHELIAL CELLS Small amount(A) Negative /HPF 05/05/2022 2:04 PM [facility] DMH RENAL EPI CELLS 05/05/2022 2:04 PM [facility] URINE SPERM 05/05/2022 2:04 PM [facility] URINE TRICHOMONAS 05/05/2022 2:04 PM [facility] URINE YEAST 05/05/2022 2:04 PM [facility] Urine URINE SPECIMEN COLLECTION, CLEAN CATCH / Unknown Non-Phlebotomy Collection / Unknown 05/05/2022 1:49 PM DIRECTOR OF MOBILE MARKETING 05/05/2022 1:55 PM DIRECTOR OF MOBILE MARKETING Narrative [facility] - 05/05/2022 2:04 PM DIRECTOR OF MOBILE MARKETING Urine culture has been ordered. us Myron Akins MD URINE ORDERABLES Final Result [facility] [address] [place] [address] * (ABNORMAL) CMP (Comprehensive Metabolic Panel) (05/05/2022 1:49 PM DIRECTOR OF MOBILE MARKETING) SODIUM 144 133 - 145 mmol/L 05/05/2022 2:16 PM [facility] POTASSIUM 4.4 3.5 - 5.1 mmol/L 05/05/2022 2:16 PM [facility] CHLORIDE 109(H) 96 - 108 mmol/L 05/05/2022 2:16 PM [facility] CO2, VENOUS 29 21 - 32 mmol/L 05/05/2022 2:16 PM [facility] ANION GAP 10.4 10.0 - 20.0 mmol/L 05/05/2022 2:16 PM [facility] GLUCOSE 111(H) 83 - 110 mg/dL 05/05/2022 2:16 PM [facility] BUN 21(H) 6 - 19 mg/dL 05/05/2022 2:16 PM [facility] CREATININE, BLOOD 0.70 0.40 - 1.10 mg/dL 05/05/2022 2:16 PM [facility] BUN/CREATININE RATIO 30(H) 12 - 20 ratio 05/05/2022 2:16 PM [facility] TOTAL PROTEIN 6.8 6.0 - 8.2 g/dL 05/05/2022 2:16 PM [facility] ALBUMIN 3.9 3.4 - 4.8 g/dL 05/05/2022 2:16 PM [facility] CALCIUM 9.2 8.8 - 10.0 mg/dL 05/05/2022 2:16 PM [facility] T BILI 0.5 0.0 - 1.0 mg/dL 05/05/2022 2:16 PM [facility] SGOT (AST) 17 0 - 37 U/L 05/05/2022 2:16 PM [facility] SGPT (ALT) 22 12 - 45 U/L 05/05/2022 2:16 PM [facility] ALKALINE PHOSPHATASE 64 39 - 117 U/L 05/05/2022 2:16 PM [facility] GFR, ESTIMATED 86 05/05/2022 2:16 PM [facility] Comment: This eGFR is calculated using [...] Blood Venipuncture / Unknown 05/05/2022 1:49 PM DIRECTOR OF MOBILE MARKETING 05/05/2022 1:55 PM DIRECTOR OF MOBILE MARKETING Narrative [facility] - 05/05/2022 2:16 PM DIRECTOR OF MOBILE MARKETING Venipuncture should occur prior to sulfasalazine and/or sulfapyridine administration due to the potential for falsely depressed results for ALT and AST. ??Glucose can be falsely depressed after administration of sulfasalazine, and falsely elevated with administration of sulfapyridine. us Myron Akins MD CHEMISTRY ORDERABLES F inal Result [address] [address] * EKG 12 LEAD (05/05/2022 1:45 PM DIRECTOR OF MOBILE MARKETING) Ventricular Rate 84 BPM EXTERNAL EKG Atrial Rate 84 BPM EXTERNAL EKG P-R Interval 172 ms EXTERNAL EKG QRS Duration 100 ms EXTERNAL EKG Q-T Duration 386 ms EXTERNAL EKG QTC CALCULATION 456 ms EXTERNAL EKG P [place] 48 degrees EXTERNAL EKG R [place] -31 degrees EXTERNAL EKG T [place] 33 degrees EXTERNAL EKG 05/05/2022 1:45 PM DIRECTOR OF MOBILE MARKETING 05/06/2022 12:26 PM DIRECTOR OF MOBILE MARKETING Impressions EXTERNAL EKG - 05/06/2022 12:26 PM DIRECTOR OF MOBILE MARKETING Normal sinus rhythmLeft axis deviation nonspecific T-wave changesMinimal voltage criteria for LVH, may be normal variantAbnormal ECGNo previous ECGs availableConfirmed by ROBERT PACHECO ([id number]) on 05/06/2022 12:26:34 PM Narrative Procedure Note Robert Pacheco MD - 05/06/2022 IMPRESSION: Normal sinus rhythmLeft axis deviation nonspecific T-wave changesMinimalvoltage criteria for LVH, may be normal variantAbnormal ECGNo previousECGs availableConfirmed by ROBERT PACHECO ([id number]) on 05/06/2022 12:26:34 PM us Myron Akins [...] 05/05/22 at 1400 Given 05/05/2022 1:57 PM DIRECTOR OF MOBILE MARKETING 50 mcg fentaNYL (PF) (SUBLIMAZE) injection 50 mcg 50 mcg, Intravenous, ONCE, 1 dose, On 05/05/22 at 1530 Given 05/05/2022 3:22 PM DIRECTOR OF MOBILE MARKETING 50 mcg Iohexol SOLN 200 mL 200 mL, Intravenous, ONCE, 1 dose, On 05/05/22 at 1500 Given 05/05/2022 3:00 PM DIRECTOR OF MOBILE MARKETING 144 mL ondansetron (ZOFRAN) injection 4 mg 4 mg, Intravenous, ONCE, 1 dose, On 05/05/22 at 1400 Given 05/05/2022 1:57 PM DIRECTOR OF MOBILE MARKETING 4 mg sodium chloride 0.9 % 500 mL IV bolus Intravenous, ONCE, 1 dose, On 05/05/22 at 1400, Administer over 1 Hours New Bag 05/05/2022 1:58 PM DIRECTOR OF MOBILE MARKETING 500 mL/ hr documented in this encounter Active and Recently Administered Medications Times are shown in DIRECTOR OF MOBILE MARKETING. Scheduled Medication Order 05/03/2022 05/04/2022 05/05/2022 fentaNYL [...] RN) documented in this encounter Care Teams Street Light Cleaner Relationship Specialty Start Date End Date Keegan Farah MD PCP - General Internal Medicine 05/05/22 documented as of this encounter
--- OUTSIDE RECORDS SUMMARY | 2024-04-04 21:49 | XMS_ITS | Encounter Summary ---
Author Organization [employer] Care Team Providers Care Tile Applicator Name Role Phone Keegan Farah MD Primary Care Provider [phone] Encounter Details Date Type Department Care Team [...] on file Legal Sex Female 1:11 PM TEAROOM HOST/HOSTESS Gender Identity Not on file Sexual Orientation Not on file COVID-19 Exposure Response Date Recorded In the last 10 days, have yo u been in contact with someone who was confirmed or suspected to have Coronavirus/COVID-19? No / Unsure 05/05/2022 1:11 PM TEAROOM HOST/HOSTESS documented as of this encounter Plan of Treatment Not on file documented as of this encounter Visit Diagnoses Not on filedocumented in this encounter Care Teams Tile Applicator Relationship Specialty Start Date End Date Keegan Farah MD PCP - General Internal Medicine 05/05/22 documented as of this encounter
== END 2024-03-30 10:50 | disposition home or self-care (01) ==
PROVIDERS: Student in an Organized Health Care Education/Training Program; Emergency Provider Emergency Medicine; PCP Internal Medicine
DX: R07.89 Other chest pain (principal); N39.0 Urinary tract infection, site not specified; R91.1 Solitary pulmonary nodule; I51.7 Cardiomegaly; E04.2 Nontoxic multinodular goiter; I77.810 Thoracic aortic ectasia
CPT/HCPCS: 36415; 71046; 71260; 80053; 81001; 83690; 85025; 87077; 87086; 87186; 96374; 96375; 99284; J2270; J2405; Q9967

== ENCOUNTER 2024-06-05 08:24 | Outpatient (CLI) | payer MEDICARE, SELFPAY ==
--- OUTSIDE RECORDS SUMMARY | 2024-06-05 08:43 | XMS_ITS | Clinical Summary ---
Author Organization [facility] Address [address] [place] [address] Phone Care Team Providers Care Investor Name Role Phone Keegan Farah MD Primary Care Provider [phone] Allergies Active Allergy Reactions Criticality Noted Date [...] on file Legal Sex Female 1:11 PM WAREHOUSE SORTER Gender Identity Not on file Sexual Orientation Not on file Last Filed Vital Signs Vital Sign Reading Time Taken Comments Blood Pressure 105/58 05/05/2022 3:30 PM WAREHOUSE SORTER Pulse 79 05/05/2022 1:36 PM WAREHOUSE SORTER Temperature 36.3 C (97.4 F) 05/05/2022 1:36 PM WAREHOUSE SORTER Respiratory Rate 20 05/05/2022 1:13 PM WAREHOUSE SORTER Oxygen Saturation 90% 05/05/2022 3:30 PM WAREHOUSE SORTER Inhaled Oxygen Concentration - - Weight 73 kg (161 lb) 05/05/2022 1:13 PM WAREHOUSE SORTER Height 162.6 cm (5' 4 ) 05/05/2022 1:13 PM WAREHOUSE SORTER Body Mass Index 27.64 05/05/2022 1:13 PM WAREHOUSE SORTER Plan of Treatment Health Maintenance Due Date Last Done Comments DEXA Bone Density 1940 Hepatitis C Virus (HCV) Screening 1940 Zoster Immunization (1 of 2) 1988 Respiratory Syncytial Virus (RSV) Immunization (Adult) (1 - 1-dose 75+ series) 2013 Influenza Immunization (#1) 12/15/202308/2021, 02/14/2021, 01/29/2020, Additional history exists SARS-COV-2 Immunization [...] to complete this topic Insurance MEDICARE C [facility] Care Teams Investor Relationship Specialty Start Date End Date Keegan Farah MD PCP - General Internal Medicine 05/05/22
--- OUTSIDE RECORDS SUMMARY | 2024-06-05 08:43 | XMS_ITS | Data Portability ---
Author Organization [place] [facility] [employer], Main Office Address [address] [place] [address] Care Team Providers Care Certified Indoor Environmentalist Name Role Phone SHAAN FARAH Primary Care Provider SHAAN FARAH Referring Provider Assessment Encounter Date Assessment Date Assessment LastModified by Organization Details LastModified Time 02/28/2023 02/28/2023 HPI: Patient returns. She is [...] has no effusion in it. She has rcut-wl-rdujusmf pain with patellofemoral grind. She still has [...] patient more than half of this in ixtn-jr-typy conversation [email or web address] Not available 02/28/2023 09:11:49 Plan of Treatment Reminders Order Date Submit Date Provider Last Modified By Organization Details Last Modified Time Details Appointments Any 2024 08:15A Sarath Farah MD Not available Not available Not available Medicare Wellness 2024 08:30A Sarath Farah MD Not available Not available Not available Lab vitamin D, 25-hydrox y, total, serum 2023 [facility] [place] ([facility]), [address] [place], [address], 01/22/2024 21:21:44 CMP, serum or plasma 2023 [facility] [place] ([facility]), [address] [place], [address], 01/22/2024 20:40:34 CBC w/ auto diff 2023 [facility] [place] ([facility]), [address] [place], [address], 01/22/2024 18:39:24 lipid panel, serum 2023 [facility] [place] ([facility]), [address] [place], [address], 01/22/2024 20:40:39 Referral None recorded. Procedures None recorded. Surgeries None recorded. Imaging bone density - Please call patient to schedule. [facility] OON w/ [facility] 2024 [facility], [address] [place] [address] , [place] [address], [place], [address], 05/25/2024 11:30:41 Medication Orders trazodone 50 mg tablet 2023 024 [id number], [address], [place], [place], [id number], 09/18/2023 12:06:38 Anusol-HC 2.5 % topical cream with perineal applicato r 2023 024 [id number], [address], [place], [place], [id number], 09/18/2023 10:27:16 Patient TargetsNo targets recorded. Patient Instructions Encounter Date Encounter Id Patient Instructions Last Modified By Organization Details Last Modified Time 05/17/2023 [id number] [email or web address] Not available 05/17/2023 11:09:38 09/18/2023 [id number] dementia rating scale-2* Not available 09/18/2023 12:01:25 alcohol misuse* Not available 09/18/2023 12:01:24 depression screening* Not available 09/18/2023 12:01:24 multi-dimensiona l health assessment questionnaire* [email or web address] Not available 09/18/2023 12:01:24 Personalized Health Plan and Screening Recommendations Advance Directives - Do you have one? Yes Advance Directives - Do we have your advance directive on file in your health record? No, please bring in a copy at your earliest convenience Primary Prevention/Interven tion (prevents or decreases the chance of common diseases from occurring) Smoking Risk: Non Smoker Alcohol Misuse Screening: Negative Weight: Appropriate Physical activity: Need more exercise/physical activity Nutrition: Good Average Fall Risk (screened today): Low Vaccines Pneumococcal: Ordered Recommended today Recommended today, but you have declined No further needed Influenza: Your next one in the fall of this year Chronic Disease Risks Stroke: Low Risk Intermediate [...] or ) Breast Cancer Screening with mammogram: No screening necessary Cervical/Uterine/Ov akanksha Cancer Screening: No screening necessary Osteoporosis Screening: No screening necessary Date Screening Last Performed: Colon Cancer Screening: Colonoscopy No screening necessary Date Screening Last Performed: Eye Disease Screening: Dementia Risk: Low I have no recommendations Depression Screening: Negative [email or web address] Not available 09/18/2023 10:43:17 Reason for Referral None Reported. Results Created Date Observation Date Name Description Value Unit Range Abnormal Flag Note LastModifiedBy Organization Detail LastModifiedTime 01/22/2001/22/2024 CBC/C OMPLE TE BLD COUNT W/DIF F white blood cells 6.9 x10'3 /uL 4.2-10 .8 Not Available [facility] (Lab) [address] [place], [address], 01/22/2024 18:39:24 01/22/2001/22/2024 CBC/C OMPLE TE BLD COUNT W/DIF F red blood cells 4.59 x10'6 /uL 3.80-5 .20 Not Available [facility] (Lab) [address] [place], [address], 01/22/2024 18:39:24 01/22/2001/22/2024 CBC/C OMPLE TE BLD COUNT W/DIF F hemoglobin 15.1 g/dL 12.0-1 5.6 Not Available [facility] (Lab) [address] [place], [address], 01/22/2024 18:39:24 01/22/2001/22/2024 CBC/C OMPLE TE BLD COUNT W/DIF F hematocrit 46.7 % 35.7-4 5.7 high Not Available [facility] (Lab) [address] [place], [address], 01/22/2024 18:39:24 01/22/2001/22/2024 CBC/C OMPLE TE BLD COUNT W/DIF F mean red cell volume 101.7 fL 82.0-9 9.0 high Not Available [facility] (Lab) [address] [place], [address], 01/22/2024 18:39:24 01/22/2001/22/2024 CBC/C OMPLE TE BLD COUNT W/DIF F mean red cell hemoglobin 32.9 pg 27.0-3 3.0 Not Available [facility] (Lab) [address] [place], [address], 01/22/2024 18:39:24 01/22/2001/22/2024 CBC/C OMPLE TE BLD COUNT W/DIF F mean RBC HGB concentratio n 32.3 g/dL 31.0-3 6.0 Not Available [facility] (Lab) [address] [place], [address], 01/22/2024 18:39:24 01/22/2001/22/2024 CBC/C OMPLE TE BLD COUNT W/DIF F red cell distribution width 13.6 % 11.8-1 5.5 Not Available [facility] (Lab) [address] [place], [address], 01/22/2024 18:39:24 01/22/2001/22/2024 CBC/C OMPLE TE BLD COUNT W/DIF F platelets 179 x10'3 /uL 150-40 0 Not Available [facility] (Lab) [address] [place], [address], 01/22/2024 18:39:24 01/22/2001/22/2024 CBC/C OMPLE TE BLD COUNT W/DIF F neutrophils 55.2 % 39.0-7 2.0 Not Available [facility] (Lab) [address] [place], [address], 01/22/2024 18:39:24 01/22/2001/22/2024 CBC/C OMPLE TE BLD COUNT W/DIF F lymphocytes 33.2 % 16.0-4 7.0 Not Available [facility] (Lab) [address] [place], [address], 01/22/2024 18:39:24 01/22/2001/22/2024 CBC/C OMPLE TE BLD COUNT W/DIF F monocytes 8.3 % 5.0-12 .0 Not Available [facility] (Lab) [address] [place], [address], 01/22/2024 18:39:24 01/22/2001/22/2024 CBC/C OMPLE TE BLD COUNT W/DIF F eosinophils 2.3 % 1.0-7. 0 Not Available [facility] (Lab) [address] [place], [address], 01/22/2024 18:39:24 01/22/2001/22/2024 CBC/C OMPLE TE BLD COUNT W/DIF F basophils 0.7 % 0.0-2. 0 Not Available [facility] (Lab) [address] [place], [address], 01/22/2024 18:39:24 01/22/2001/22/2024 CBC/C OMPLE TE BLD COUNT W/DIF F immature granulocytes 0.3 % 0.00-0 .50 Not Available [facility] (Lab) [address] [place], [address], 01/22/2024 18:39:24 01/22/2001/22/2024 CBC/C OMPLE TE BLD COUNT W/DIF F neutrophils, absolute count 3.78 x10'3 /uL 1.5-8. 0 Not Available [facility] (Lab) [address] [place], [address], 01/22/2024 18:39:24 01/22/2001/22/2024 CBC/C OMPLE TE BLD COUNT W/DIF F lymphocytes, absolute count 2.28 x10'3 /uL 1.07-3 .43 Not Available [facility] (Lab) [address] [place], [address], 01/22/2024 18:39:24 01/22/2001/22/2024 CBC/C OMPLE TE BLD COUNT W/DIF F monocytes, absolute count 0.57 x10'3 /uL 0.29-0 .99 Not Available [facility] (Lab) [address] [place], [address], 01/22/2024 18:39:24 01/22/20 24 01/22/2024 CBC/C OMPLE TE BLD COUNT W/DIF F eosinophils, absolute count 0.16 x10'3 /uL 0.02-0 .53 Not Available [facility] (Lab) [address] [place], [address], 01/22/2024 18:39:24 01/22/2001/22/2024 CBC/C OMPLE TE BLD COUNT W/DIF F basophils, absolute count 0.05 x10'3 /uL 0.01-0 .08 Not Available [facility] (Lab) [address] [place], [address], 01/22/2024 18:39:24 01/22/20 24 01/22/2024 CBC/C OMPLE TE BLD COUNT W/DIF F immature granulocytes ,absolute 0.02 x10'3 /uL 0.00-0 .05 Not Available [facility] (Lab) [address] [place], [address], 01/22/2024 18:39:24 01/22/20 24 01/22/2024 CBC/C OMPLE TE BLD COUNT W/DIF F nucleated red blood cells 0.0 % -0 Not Available [facility] (Lab) [address] [place], [address], 01/22/2024 18:39:24 01/22/2001/22/2024 CBC/C OMPLE TE BLD COUNT W/DIF F NRBC# 0.00 x10'3 /uL Not Available [facility] (Lab) [address] [place], [address], 01/22/2024 18:39:24 01/22/20 24 01/22/2024 COMPR EHENS LAURA METAB OLIC PANEL sodium 156 mmol/ L 137-14 5 high Not Available [facility] (Lab) [address] [place], [address], 01/22/2024 20:40:34 01/22/2001/22/2024 COMPR EHENS LAURA METAB OLIC PANEL potassium 4.8 mmol/ L 3.5-5. 1 Not Available [facility] (Lab) [address] [place], [address], 01/22/2024 20:40:34 01/22/2001/22/2024 COMPR EHENS LAURA METAB OLIC PANEL chloride 119 mmol/ L 98-107 high Not Available [facility] (Lab) [address] [place], [address], 01/22/2024 20:40:34 01/22/20 24 01/22/2024 COMPR EHENS LAURA METAB OLIC PANEL carbon dioxide 25 mmol/ L 22-30 Not Available [facility] (Lab) [address] [place], [address], 01/22/2024 20:40:34 01/22/20 24 01/22/2024 COMPR EHENS LAURA METAB OLIC PANEL anion gap 16.8 mmol/ L 14-22 Not Available [facility] (Lab) [address] [place], [address], 01/22/2024 20:40:34 01/22/20 24 01/22/2024 COMPR EHENS LAURA METAB OLIC PANEL glucose 113 mg/dL 70-99 high Not Available [facility] (Lab) [address] [place], [address], 01/22/2024 20:40:34 01/22/20 24 01/22/2024 COMPR EHENS LAURA METAB OLIC PANEL BUN 24 mg/dL 8-19 high Not Available [facility] (Lab) [address] [place], [address], 01/22/2024 20:40:34 01/22/20 24 01/22/2024 COMPR EHENS LAURA METAB OLIC PANEL creatinine 0.91 mg/dL 0.66-1 .25 Not Available [facility] (Lab) [address] [place], [address], 01/22/2024 20:40:34 01/22/20 24 01/22/2024 COMPR EHENS LAURA METAB OLIC PANEL GFR 59 Refer ence Range : [place] ge GFR Healt hy Adult : >60 [...] of age, a pedia tric GFR calcu latyuliana is avail able on the [facility] websi te: https ://yesika lagos.antoineta prieto/pr ofess ional s/kdo qi/gf r_cal culat or Not Available [facility] (Lab) [address] [place], [address], 01/22/2024 20:40:34 01/22/2001/22/2024 COMPR EHENS LAURA METAB OLIC PANEL alkaline phosphatase 76 U/L 38-126 Not Available [facility] (Lab) [address] [place], [address], 01/22/2024 20:40:34 01/22/20 24 01/22/2024 COMPR EHENS LAURA METAB OLIC PANEL alanine aminotransfe rase 24 U/L 0-35 Not Available [facility] (Lab) [address] [place], [address], 01/22/2024 20:40:34 01/22/20 24 01/22/2024 COMPR EHENS LAURA METAB OLIC PANEL aspartate aminotransfe rase 34 U/L 15-37 Not Available [facility] (Lab) [address] [place], [address], 01/22/2024 20:40:34 01/22/20 24 01/22/2024 COMPR EHENS LAURA METAB OLIC PANEL bilirubin, total 0.70 mg/dL 0.20-1 .30 Not Available [facility] (Lab) [address] [place], [address], 01/22/2024 20:40:34 01/22/20 24 01/22/2024 COMPR EHENS LAURA METAB OLIC PANEL calcium 10.9 mg/dL 8.4-10 .2 high Not Available [facility] (Lab) [address] [place], [address], 01/22/2024 20:40:34 01/22/20 24 01/22/2024 COMPR EHENS LAURA METAB OLIC PANEL total protein 7.8 g/dL 6.3-8. 2 Not Available [facility] (Lab) [address] [place], [address], 01/22/2024 20:40:34 01/22/20 24 01/22/2024 COMPR EHENS LAURA METAB OLIC PANEL albumin 4.9 g/dL 3.0-4. 4 high Not Available [facility] (Lab) [address] [place], [address], 01/22/2024 20:40:34 01/22/20 24 01/22/2024 COMPR EHENS LAURA METAB OLIC PANEL globulin 2.9 g/dL 2.6-4. 2 Not Available [facility] (Lab) [address] [place], [address], 01/22/2024 20:40:34 01/22/20 24 01/22/2024 COMPR EHENS LAURA METAB OLIC PANEL A/G ratio 1.7 ratio 1.0-2. 0 Not Available [facility] (Lab) [address] [place], [address], 01/22/2024 20:40:34 01/22/20 24 01/22/2024 LIPID PANEL cholesterol 212 mg/dL 140-19 9 high NIH DAYANA NSUS RECOM MENDA TION FOR MELANY STERO L: ADULT CHILD LOW RISK: <200 <170 BORDE RLINE : <200- 239 ----- HIGH RISK: >240 >200 Not Available [facility] (Lab) [address] [place], [address], 01/22/2024 20:40:39 01/22/20 24 01/22/2024 LIPID PANEL triglyceride s 213 mg/dL 0-150 high NIH DAYANA NSUS REPOR T RECOM MENDA TION FOR TRIGL YCERI TRICIA: ADULT CHILD LOW RISK: <150 ----- BODER LINE: 150-1 99 ----- HIGH RISK: >200 ----- Not Available [facility] (Lab) [address] [place], [address], 01/22/2024 20:40:39 01/22/20 24 01/22/2024 LIPID PANEL HDL cholesterol 67 mg/dL 40- Not Available [facility] (Lab) [address] [place], [address], 01/22/2024 20:40:39 01/22/20 24 01/22/2024 LIPID PANEL [...] WILL NOT BE REPOR EDWARD. Not Available [facility] (Lab) [address] [place], [address], 01/22/2024 20:40:39 01/22/20 24 01/22/2024 VITAM IN D 25-HY DROXY vd25oh 40.2 NG/mL 30-100 Vitam in D Statu s: Defic ient: <20 ng/mL Insuf ficie nt: 20-29 ng/mL Suffi cient : 30-10 0 ng/mL Not Available [facility] (Lab) [address] [place], [address], 01/22/2024 20:57:09 02/15/20 23 XR, knee No observ ation record ed. [email or web address] [email or web address] [facility] [address] [facility], [place], [address], 02/14/2023 15:58:58 12/03/30/2024 XR, chest No observ ation record ed. [facility] Not Available 2023 18:05:22 Result Notes None recorded. Problems Name Problem SNOMED Code Status Onset Date Resolution Date Notes Provider Name and Address Organization Details Recorded Time Closed fracture of right patella 95673644771 112180 Active 2022 Not Available [facility] 3 15:38:15 Cellulit is 977583767 Completed Not Available [facility] 3 06:46:37 Hearing loss 37966467 Active Not Available [facility] 3 15:38:15 Pain of right ankle joint 63049747357 354875 Active 2022 Not Available [facility] 3 15:38:15 Insomnia 789093948 Active 2016 Not Available [facility] 3 15:38:15 Angina pectoris 751073536 Completed Not Available [facility] 3 06:46:38 Nail deformit y 229772665 Completed 202001/16/2022 Not Available [facility] 3 06:46:38 Gastroes ophageal reflux disease 158726944 Active Not Available [facility] 3 15:38:15 Thyroid nodule 826013282 Active 2017 Not Available [facility] 3 15:38:15 Infectio n of sebaceou s cyst 640583732 Completed Not Available [facility] 3 06:46:38 Long-ter m drug therapy Completed 202101/16/2022 Not Available [facility] 3 06:46:39 Edema 788781448 Active 2019 Not Available [facility] 3 15:38:15 Adult health examinat ion Active 2020 Not Available [facility] 3 15:38:15 Thoracic back pain 969672698 Completed Not Available [facility] 3 06:46:39 Rib pain 033680907 Active 2022 Not Available [facility] 3 15:38:15 Hypertri glycerid emia 908391808 Active 2020 Not Available [employer] 3 15:38:15 Knee pain Completed Not Available [facility] 3 06:46:40 Facial lacerati on 262910660 Active 2022 Not Available [facility] 3 15:38:15 Osteoart hritis 543987864 Active Not Available [facility] 3 15:38:15 Onychomy cosis of toenails 979271868 Completed 202101/16/2022 Not Available [facility] 3 06:46:40 Solitary nodule of lung 996253935 Active 2022 Not Available [facility] 3 15:38:15 Solitary nodule of lung 297921343 Completed 201901/16/2022 Not Available [facility] 3 06:46:40 Multiple nodules of lung 711615857 Active 2017 PET 07/02, Benign Not Available [facility] 3 15:38:15 Pain of right knee joint 11231430471 4100 Active 2022 Not Available [facility] 3 15:38:16 Coronary arterios clerosis 76181137 Active 2020 Not Available [facility] 3 15:38:16 Acute upper respirat ory infectio n 07414312 Completed Not Available [facility] 3 06:46:41 Hyperlip idemia 15141429 Active Not Available [facility] 3 15:38:16 [facility] hyperten josé miguel 14703178 Active Not Available [facility] 3 15:38:16 Osteopor osis 41426331 Active 2016 Not Available [facility] 3 15:38:16 Closed fracture of patella 96535627 Active 2022 Not Available [facility] 3 15:38:16 Skin lesion 07356832 Active Not Available [facility] 3 15:38:16 Fracture of patella 94568335 Active 2022 Not Available [facility] 3 15:38:16 Hearing loss 43815327 Active 2022 Not Available [facility] 3 15:38:15 Dysphagi a 59233950 Active 2022 Not Available [facility] 3 15:38:15 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 2022 Not Available [facility] 3 15:38:15 Pain of left knee joint 08790644179 4107 Active 2022 NANNETTE Guerra null, [employer] 3 11:02:59 Osteoart hritis of left knee joint 63143037046 9109 Active 2022 NANNETTE Guerra null, [employer] 3 08:58:09 Hemorrho ids 05264641 Active 2023 Shaan Farah MD [address], [place], [address] , [employer] 4 10:26:49 Hypercal cemia 21220562 Active 2023 Shaan Farah MD [address], [place], [address] , [employer] 4 08:52:35 Sinusiti s 41622683 Active 2024 Evelin Peng LPN null, [employer] 5 12:48:42 Hypergly cemia 41544699 Active 2024 Shaan Farah MD [address], [address], [place], [address] , [email or web address] 5 10:30:26 Problem Notes None recorded. Procedures Surgical History Date Name Laterality Status Provider Name and Address Organization Details Recorded Time 09/18/19 24 Medicare Wellness CPT Code, subsequent completed Mandy Latham RN [facility] [facility] 09/18/2023 10:37:37 09/15/19 23 Medicare Wellness CPT Code, subsequent completed Roshni Gutiérrez RN [facility] [employer] 09/14/2022 11:19:42 02/14/20 22 Most Recent Bone Density completed Roshni Gutiérrez RN [place] [facility] 09/14/2022 11:21:47 06/30/19 10 Date of Last Colonoscopy completed Not Available [facility] 06/13/2022 06:41:20 Appendectomy completed Not Available [facility] 06/13/2022 06:41:23 Hysterectomy completed Not Available [facility]/13/[facility] 06:41:23 Imaging Results Imaging Date Name Status LastModified by Organiz ation Details LastModified Time 02/14/2023 XR, knee completed [email or web address] [address], [place], [address], 02/14/2023 15:58:58 03/30/2024 XR, chest completed [facility] Information no t available 03/30/2024 18:05:22 Procedure Notes None recorded. Medical Equipment None Reported. Allergies Allergen ID Allergen Name Allergen Category Reaction Reaction Severity Criticality Documentation Date Start Date Code Code System Note Provider Name and Address Organization Details Recorded Time 07112 sulfur dioxide medicatio n rash Not available Not available 06/13/2022 34021 79 RxNorm Not Available [facility] 3 06:54:31 93298 Substance with sulfonami de structure and antibacte rial mechanism of action (substanc e) medicatio n rash Not available Not available 06/13/2022 85499 8003 SNOMED Not Available [facility] 3 06:54:31 53709 codeine medicatio n rash Not available Not available 06/13/2022 2670 RxNorm Not Available [facility] 3 06:54:32 Medications Name Sig Start Date [...] Not Available Not Available No t Available aspirin 325 mg tablet Take 1 [...] completed Not Available Not Available Not Available Medrol (Trent) 4 mg tablets in a dose pack Take by oral route UUD 05/25 completed Not Available Not Available Not Available alendronate 70 mg tablet TAKE 1 TABLET BY MOUTH EVERY WEEK 2023 active Not Available Not Available Not Avai lable Nifedical XL 30 mg tablet,exte nded release Take 1 tablet every day by oral route. active Not Available Not Available No t Available Zithromax Z-Trent 250 mg tablet TAKE 2 TABLETS (500 MG) BY ORAL ROUTE ONCE DAILY FOR 1 DAY THEN 1 TABLET (250 MG) BY ORAL ROUTE ONCE DAILY FOR 4 DAYS 05/25 completed Not Available Not Available Not Available diphenoxyla te-atropine 2.5 mg-0.025 mg tablet [...] Available Not Available tramadol 50 mg tablet 05/25 completed Not Available Not Available Not Available triamcinolo ne acetonide 0.1 % topical [...] Available Not Available Not Avai lable econazole nitrate 1 % topical cream APPLY TO THE [...] Updated DateTime 02/28/2023 162.56 cm Angi Rucker [place] [facility] [employer] [facility] 02/28/2023 08:57:09 Date Recorded Body height Body mass index (BMI) Body weight Body temperature Heart rate Oxygen saturation Oxygen saturation in Arterial blood by Pulse oximetry Systolic blood pressure Diastolic blood pressure Provider Name and Address Organization Details Last Updated DateTime 4 162.56 cm 26.6 kg/m2 94372.8 2 g 97.9 [degF] 61 /min 98 % 98 % 120 mm[Hg] 68 mm[Hg] George Arellano CMA [facility] [employer] [facility] 4 10:52:55 Date Recorded Body height Body mass index (BMI) Body weight Heart rate Oxygen saturation Oxygen saturation in Arterial blood by Pulse oximetry Systolic blood pressure Diastolic blood pressure Provider Name and Address Organization Details Last Updated DateTime 4 162.56 cm 26.9 kg/m2 26181.9 2 g 53 /min 99 % 99 % 120 mm[Hg] 70 mm[Hg] Angi Rucker [place] [facility] [employer] [facility] 4 09:52:24 Date Recorded Pain severity - 0-10 verbal numeric rating [Score] - Reported Provider Name and Address Organization Details Last Updated DateTime 09/18/2023 0 Mandy Latham RN [facility] [employer] [facility] 09/18/2023 10:37:53 Date Recorded Body height Body mass index (BMI) Body weight Body temperature Heart rate Oxygen saturation Oxygen saturation in Arterial blood by Pulse oximetry Systolic blood pressure Diastolic blood pressure Provider Name and Address Organization Details Last Updated DateTime 4 162.56 cm 26.6 kg/m2 81944.8 2 g 97.7 [degF] 62 /min 98 % 98 % 118 mm[Hg] 64 mm[Hg] Radha zuniga [place] [facility] [employer] [facility] 4 10:09:40 Date Recorded Body height Body mass index (BMI) Body weight Body temperature Heart rate Oxygen saturation Oxygen saturation in Arterial blood by Pulse oximetry Systolic blood pressure Diastolic blood pressure Provider Name and Address Organization Details Last Updated DateTime 5 162.56 cm 27.1 kg/m2 22779.5 9 g 97.3 [degF] 68 /min 98 % 98 % 100 mm[Hg] 60 mm[Hg] Radha zuniga, [place] [facility] [place] [employer] [facility] 5 10:04:16 Social History Question Answer Notes LastModified by Organization Details LastModified Time Tobacco Smoking Status Never Smoker Not Available [employer] 06/13/2022 06:40:29 Do You Have An Advance Directive? Yes [id number] Information not available 06/13/2022 What Is Your Level Of Alcohol Consumption? None [id number] Information not available 06/13/2022 Are You Blind Or Do You Have Difficulty Seeing? No [id number] Information not available 06/13/2022 What Is Your Level Of Caffeine Consumption? Occasional MIGRATION.0301 [id number] Information not available 06/13/2022 How Much Tobacco Do You Chew? None MIGRATION.0301 [id number] Information not available 06/13/2022 Are You Deaf Or Do You Have Serious Difficulty Hearing? Yes Hearing Aids MIGRATION.0301 [id number] Information not available 06/13/2022 What Type Of Diet Are You Following? REGULAR MIGRATION.0301 [id number] Information not available 06/13/2022 Which Illicit Or Recreational Drugs Have You Used? None MIGRATION.0301 244162 Information not available 06/13/2022 What Is Your Occupation? Retired MIGRATION.0301 [id number] Information not available 06/13/2022 Have There Been Any Changes To Your Family Or Social Situation? No [email or web address] Information not available 09/18/2023 What Is The Fluoride Status Of Your Home? Fluoridated MIGRATION.0301 [id number] Information not available 06/13/2022 Are There Any Guns Present In Your Home? No MIGRATION.0301 [id number] Information not available 06/13/2022 Where Do You Live? SingleLevelHouse With Basement MIGRATION.0301 184452 Information not available 06/13/2022 Presence Of Domestic Violence No [email or web address] Information not available 09/14/2022 Guns Present In The Home? No [email or web address] Information not available 09/18/2023 Are You Able To Care For Yourself? Yes [email or web address] Information not available 09/14/2022 Are You Blind Or Do Yo Have Difficulty Seeing? No [email or web address] Information not available 09/14/2022 Are You Deaf Or Do You Have Serious Difficulty Hearing? Yes Hearing Aids Information not available 09/14/2022 General Stress Level? Low Information not available 09/14/2022 Live Alone Of With Others? With Others [email or web address] Information not available 09/14/2022 What Was The Date Of Your Most Recent Tobacco Screening? 09/18/2023 [email or web address] Information not available 09/18/2023 Do You Have Any Pets? No [email or web address] Information not available 09/18/2023 What Is Your Relationship Status? [email or web address] Information not available 09/14/2022 Do You Use Your Seat Belt Or Car Seat Routinely? Yes MIGRATION.0301 [id number] Information not available 06/13/2022 Do You Have Smoke And Carbon Monoxide Detectors In Your Home? Yes MIGRATION.0301 422883 Information not available 06/13/2022 Are You Passively Exposed To Smoke? No [email or web address] Information not available 09/18/2023 Are There Any Smokers In Your House? No Information not available 09/18/2023 Do You Use Sunscreen Routinely? Yes MIGRATION.0301 [id number] Information not available 06/13/2022 Sex: Female Functional Status Question Answer Note LastModified by Organizat ion Details LastModified Time Do you have difficulty walking or climbing stairs? No MIGRATION.[id number] 026 Information not available 06/13/2022 Do you have transportation difficulties? No MIGRATION.3255200 026 Information not available 06/13/2022 Are you able to walk? YESWOREST MIGRATION.1409296 026 Information not available 06/13/2022 Do you have difficulty doing errands alone? No MIGRATION.9690887 026 Information not available 06/13/2022 Are you able to care for yourself? Yes MIGRATION.7112863 026 Information not available 06/13/2022 Do you have difficulty dressing or bathing? No MIGRATION.5007994 026 Information not available 06/13/2022 What is your exercise level? Occasional [email or web address] Information not available 09/18/2023 Mental Status Question Answer Note LastModified by Organizat ion Details LastModified Time Do you have difficulty concentrating, remembering or making decisions? No MIGRATION.[id number] 6 Information not available 06/13/2022 Family History Relationship Description Onset Age of this Age Resolved Age Notes LastModified by Organization Details LastModified Time Mother Heart disease MIGRATION.146 [id number] Not available 06/13/2022 06:41:24 Mother Essential hypertension MIGRATION.138 [id number] Not available 06/13/2022 06:41:24 Father Heart disease MIGRATION.109 0502159 Not available 06/13/2022 06:41:24 Father Essential hypertension MIGRATION.072 [id number] Not available 06/13/2022 06:41:24 Sister Family history of malignant neoplasm MIGRATION.784 [id number] Not available 06/13/2022 06:41:24 Unspecified Relation Diabetes mellitus grands on MIGRATION.378 [id number] Not available 06/13/2022 06:41:24 Notes:NO ENT Medical [...] 3 completed NANNETTE Gallo, [place] [facility] [employer] 01/14/2023 17:01:22 SARS-COV-2 (COVID-19) vaccine, UNSPECIFIED 1 completed Not Available [facility] 02/21/2023 23:23:27 SARS-COV-2 (COVID-19) vaccine, UNSPECIFIED 1 completed Not Available [facility] 02/21/2023 23:23:27 Influenza, high-dose, trivalent, PF 0 completed Not Available [facility] 02/21/2023 23:23:27 Influenza, split virus, trivalent, preservative 5 completed Not Available [facility] 02/21/2023 23:23:27 Influenza, split virus, quadrivalent, preservative 9 completed Not Available [facility] 02/21/2023 23:23:26 Influenza, split virus, trivalent, preservative 4 completed Not Available [facility] 02/21/2023 23:23:27 Influenza, high-dose, quadrivalent, PF 2 completed Not Available [facility] 02/21/2023 23:23:26 Influenza, high-dose, trivalent, PF 8 completed Not Available [facility] 02/21/2023 23:23:27 Pneumococcal conjugate PCV 13 8 completed Not Available [facility] 02/21/2023 23:23:27 Influenza, split virus, quadrivalent, PF 7 completed Not Available [facility] 02/21/2023 23:23:27 pneumococcal polysaccharide PPV23 6 completed Not Available [facility] 02/21/2023 23:23:27 Influenza, split virus, quadrivalent, PF 6 completed Not Available [facility] 02/21/2023 23:23:27 Influenza, high-dose, trivalent, PF 4 completed Shaan Farah MD [address] [place] [address] [address], [place], [address], [facility] 01/22/2024 14:18:22 Past Encounters Encounter ID Performer Location Encounter Start Date Encounter Closed Date Diagnosis/Indication Diagnosis SNOMED-CT Code Diagnosis ICD10 Code Diagnosis Note [id number] [facility] [address] [place] [address] 08/04/2020 00:00:00 08/04/2020 10:38:27 [id number] [facility] [address] [address] 08/23/2020 00:00:00 08/23/2020 10:42:01 [id number] [facility] [address] [address] 12/27/2020 00:00:00 12/27/2020 10:57:59 [id number] _ATHENA_M IGRATION_ DEFAULT_1 _1 , 01/27/2021 00:00:00 01/31/2021 12:17:19 [id number] [facility] [address] [place] [address] 05/16/2021 00:00:00 05/16/2021 11:37:54 [id number] [facility] [address] [place] [address] 09/14/2021 00:00:00 09/14/2021 11:33:41 [id number] [facility] [address] [place] [address] 01/17/2022 00:00:00 01/17/2022 12:42:23 [id number] [facility] [address] [address] 05/10/2022 00:00:00 05/10/2022 16:38:58 [id number] [facility] [address] [address] 05/17/2022 00:00:00 05/17/2022 11:23:48 [id number] [facility] [address] [address] 05/24/2022 00:00:00 05/24/2022 09:39:33 [id number] JANIE El [facility] [address] [address] 06/14/2022 08:44:19 06/14/2022 09:42:49 Closed fracture of right patella 8519843074 [id number] S82.001D [id number] JANIE El [facility] [address] [address] 07/05/2022 08:56:13 07/05/2022 09:40:15 Fracture of patella 47889503 S82.001D [id number] JANIE El [facility] [address] [address] 07/26/2022 08:51:56 07/26/2022 09:41:14 Fracture of patella 18768410 S82.001D [id number] JANIE El [facility] [address] [address] 08/16/2022 09:08:14 08/16/2022 09:56:16 Pain of right knee joint [id number] 83680 M25.561 [id number] Shaan Farah MD [facility] [address] [facility] [place] [address] 09/14/2022 10:29:26 09/14/2022 11:22:49 Essential hypertension 88518329 I10 under control Coronary arteriosclerosis 80610414 I25.10 stable Hyperlipidemia 98286577 E78.5 on meds and under control Gastroesop hageal reflux disease 090129574 K21.9 meds help Thyroid nodule 863055182 E04.1 s/p neg biopsy Solitary n odule of lung 066661254 R91.1 benign, no more w/u Hearing loss 36650293 H9 1.93 using hearing aids Osteoporosis 10563365 M8 1.0 meds on hold by ortho Insomnia 486251912 G47.0 0 trazodone helps Adult heal th examination 967553286 Z00.00 colonoscop y- 06/2009, does not need any moremammog hector- 10/2018, does not want any moredexa-1 neu movax - 12/2015pre vnar 2/18FLU- OV ID- 06/10/20, 07/02/20 booster 01/26/2021 Closed fra cture of right patella 7826715727 9591847 S82.001A seeing dr albert, using cane Screening for disorder 183297466 Z13.9 [id number] Fitz Bella MD [facility] [place] [address] [place] [address] 10/25/2022 11:28:55 10/25/2022 12:21:51 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 [address] 01/14/2023 10:26:55 01/14/2023 11:29:36 Essential hypertension 03679799 I10 under control Coronary arteriosclerosis 80569800 I25.10 stable Hyperlipidemia 75823699 E78.5 on meds and under control Gastroesop hageal reflux disease 623298919 K21.9 meds help Thyroid nodule 438653744 E04.1 s/p neg biopsy Solitary n odule of lung 561696800 R91.1 benign, no more w/u Hearing loss 21676006 H9 1.93 using hearing aids Osteoporosis 89375357 M8 1.0 meds on hold by ortho Insomnia 237858563 G47.0 0 trazodone helps Adult heal th examination 657517007 Z00.00 Colonoscop y- 06/2009, does not need any moreMammog hector- 10/2018, does not want any moreDexa-1 neu movax - 12/2015Pre vnar /18FLU- 3COV ID- 06/10/20, 07/02/20 booster 01/26/2021 Administra tion of influenza vaccine 53828304 Z23 Long-term drug therapy 940612742 Z79.899 Hypertriglyceridemia 302 334676 E78.1 watch diet Multiple n odules of lung 569899778 R91.8 Osteoarthritis 756860700 M19.90 otc [id number] JANIE El [facility] [address] [address] 02/14/2023 10:55:53 02/14/2023 16:05:29 Pain of left knee joint 4888259261 41620 M25.615 [id number] JANIE El [facility] [address] [address] 02/28/2023 08:53:20 02/28/2023 09:37:47 Osteoarthritis of left knee joint 6090325968 39000 M17.12 [id number] Shaan Farah MD [facility] [address] [place] [address] 05/17/2023 10:22:47 05/17/2023 11:41:57 Essential hypertension 77405502 I10 under control Coronary arteriosclerosis 77046154 I25.10 stable Hyperlipidemia 17650348 E78.5 on meds and under control, keep watching diet Gastroesop hageal reflux disease 601831429 K21.9 meds help Thyroid nodule 164827250 E04.1 s/p neg biopsy Solitary n odule of lung 528317078 R91.1 benign, no more w/u Hearing loss 83291910 H9 1.93 using hearing aids Osteoporosis 05086233 M8 1.0 meds on hold by ortho Insomnia 694941186 G47.0 0 trazodone prn, has some stress in [facility] family Adult heal th examination 872146671 Z00.00 Colonoscop y- 06/2009, does not need any moreMammog hector- 10/2018, does not want any moreDexa-1 neu movax - 12/2015Pre vnar 2/18FLU- OV ID- 06/10/20, 07/02/20 booster 01/26/2021 Hypertriglyceridemia 302 288966 E78.1 watch diet Multiple n odules of lung 448263942 R91.8 no more w/u Osteoarthritis 266271170 M19.90 otc voltaren [id number] Shaan Farah MD [facility] [address] [place] [address] 09/18/2023 09:34:03 09/18/2023 10:38:34 Essential hypertension 73446179 I10 under control Coronary arteriosclerosis 33259451 I25.10 stable Hyperlipidemia 92588674 E78.5 keep watching diet Gastroesop hageal reflux disease 705958043 K21.9 meds help Thyroid nodule 176029346 E04.1 s/p neg biopsy Solitary n odule of lung 279691923 R91.1 benign, no more w/u Hearing loss 26700832 H9 1.93 using hearing aids Osteoporosis 87703253 M8 1.0 on meds Insomnia 847609614 G47.0 0 trazodone prn, has some stress in [facility] family Adult heal th examination 261297069 Z00.00 Colonoscop y- 06/2009, does not need any moreMammog hector- 10/2018, does not want any moreDexa-1 mov - 12/2015Pre vnar 18FLU- OV ID- 06/10/20, 07/02/20 booster 01/26/2021 Hypertriglyceridemia 302 004936 E78.1 watch diet Multiple n odules of lung 689772241 R91.8 no more w/u Osteoarthritis 152962497 M19.90 otc voltaren Hemorrhoids 40354231 K64 .9 Screening for disorder 053448164 Z13.9 [id number] Shaan Farah MD [facility] [address] [place] [address] 01/22/2024 09:48:27 01/22/2024 11:10:46 Essential hypertension 08794575 I10 under control Coronary arteriosclerosis 95694955 I25.10 stable Hyperlipidemia 92289677 E78.5 keep watching diet Gastroesop hageal reflux disease 733361473 K21.9 meds help Thyroid nodule 799250480 E04.1 s/p neg biopsy Solitary n odule of lung 743501949 R91.1 benign, no more w/u Hearing loss 33944907 H9 1.93 using hearing aids Osteoporosis 07717518 M8 1.0 on meds, dexa next yime Insomnia 143200526 G47.0 0 trazodone helps Adult heal th examination 474397545 Z00.00 Colonoscop y- 06/2009, does not need any moreMammog hector- 10/2018, does not want any moreDexa-1 neu mov - 12/2015Pre vnar 2/18FLU- 01/22/2024 COVID- 06/10/20, 07/02/20 booster 01/26/2021 Hypertriglyceridemia 302 476345 E78.1 watch diet, labs Multiple n odules of lung 398890548 R91.8 no more w/u Osteoarthritis 020481234 M19.90 otc voltaren Hemorrhoids 06101358 K64 .9 meds help Long-term drug therapy 678740512 Z79.899 Administra tion of influenza vaccine 72361396 Z23 [id number] Shaan Farah MD [facility] [address] [place] [address] 05/25/2024 09:48:18 05/25/2024 10:31:45 Essential hypertension 86400850 I10 under control Coronary arteriosclerosis 16802714 I25.10 stable Hyperlipidemia 28921318 E78.5 keep watching diet Gastroesop hageal reflux disease 835758283 K21.9 meds help Thyroid nodule 213535715 E04.1 s/p neg biopsy Solitary n odule of lung 024594725 R91.1 benign, no more w/u Hearing loss 83807665 H9 1.93 using hearing aids Osteoporosis 90709900 M8 1.0 on meds, dexa next yime Insomnia 582316980 G47.0 0 trazodone helps Adult heal th examination 304961786 Z00.00 Colonoscop y- 06/2009, does not need any moreMammog hector- 10/2018, does not want any moreDexa-1 neu movax - 12/2015Pre vnar 2/18FLU- 01/22/2024 COVID- 06/10/20, 07/02/20 booster 01/26/2021 Hypertriglyceridemia 302 140106 E78.1 watch diet, BETTER Multiple n odules of lung 749852953 R91.8 no more w/u Osteoarthritis 511678853 M19.90 otc voltaren Hemorrhoids 00179920 K64 .9 meds help Hypercalcemia 99920974 E 83.52 not ob otc Hyperglycemia 74995270 R 73.9 advise dto watch diet Health Concerns Section Related Observation LastModified by Organization Detai ls LastModified Time None Recorded Concern Status LastModified by Organization Details LastModified Time None Recorded Advance Directives Directive Y: Payers Encounter Date Sequence Insurance Name Policy Number Policy Briggs Covered Member ID Briggs Member ID Guarantor Name 02/28/2023 1 [facility] MEDICARE SOLUTIONS - MEDICARE COMPLETE (MEDICARE REPLACEMENT HMO) [id number] Modena L Harjit [id number] Monica L Harjit 05/17/2023 1 [facility] MEDICARE SOLUTIONS - MEDICARE COMPLETE (MEDICARE REPLACEMENT HMO) [id number] Monica L Harjit [id number] Modena L Harjit 09/18/2023 1 [employer] - [employer] - MEDICARE [employer] - MEDICARE COMPLETE (MEDICARE REPLACEMENT HMO) [id number] Modena L Harjit [id number] Modena L Harjit 01/22/2024 1 [facility] MEDICARE SOLUTIONS - MEDICARE COMPLETE (MEDICARE REPLACEMENT HMO) [id number] Monica L Harjit [id number] Monica L Harjit 05/25/2024 1 [facility] MEDICARE SOLUTIONS - MEDICARE COMPLETE (MEDICARE REPLACEMENT HMO) [id number] Monica L Harjit [id number] Modena L Harjit Notes Date Note Type Note [...] albert, has healed Shaan Farah MD [address] [facility], [facility] [address], [place], [address], [place] [facility] [employer] 05/17/2023 11:44:41 09/18/2023 text/html Doing fine, compliant [...] frusemide and betterMultiple nodular goiter- biopsy neg 2017Insomnia- Takes Trazodone as needed to help sleepPulm nodule- PET scan 07/02, BENIGN, never smoked, seen pulm , biopsy could not be done due to location, NO MORE W/U NEEDEDLeft knee pain, MRI showed meniscus tear and effusion, s/p shots, better, seen ortho in the past Right patellar fx, seen dr albert, has healed Shaan Farah MD [address] [facility], [facility] [address], [place], [address], [place] [facility] [employer] 09/18/2023 12:01:30 01/22/2024 text/html Doing fine, compliant [...] albert, has healed Shaan Farah MD [address], [address], [place], [address], [employer] 01/22/2024 14:18:27 05/25/2024 text/html Doing fine, compliant to medications, no side affects, here for follow up.PT IS NOT FASTING ( [facility] ) HEARING LOSS, using hearing aids Hemorroides- Has [...] symptoms dr dillOsteoporosis- on meds, LAST DEXA 03/06, DUEMeds- Alendronate 70 mg weeklyHearing loss- getting new hearing aidsEdema- on furosemide and betterMeds- Furosemide 20mg daily Multiple nodular goiter- biopsy neg 2018Insomnia- Takes Trazodone every nightPulm nodule- PET scan 07/02, BENIGN, never smoked, seen pulm , biopsy could not be done due to location, NO MORE W/U NEEDEDLeft knee pain, MRI showed meniscus tear and effusion, s/p shots, better, seen ortho in the past , using voltaren gel Right patellar fx, seen dr albert, has healed Shaan Farah MD [address], [address], [place], [address], [employer] 05/25/2024 10:31:04 OBGyn Episode No OBEpisode recorded.
[2024-06-05 09:30] LABS: Basophils Percent Auto 0.6 % (0.2-1.2); Eosinophils Absolute Auto 0.2 K/mm3 (0-0.3); Eosinophils Percent Auto 2.9 % (0-4.4); Hematocrit 46.8 % (37.0-47.0); Hemoglobin 15.1 g/dL (12.0-15.0); Immature Granulocyte Absolute 0.01 K/mm3 (0.00-0.031); Immature Granulocyte Percent A 0.2 % (0-0.5); Lymphocytes Absolute Auto 1.94 K/mm3 (0.9-3.2); Lymphocytes Percent Auto 35.6 % (18.3-44.2); Mean Corpuscular HGB Conc 32.3 g/dl (32-36); Mean Corpuscular Hemoglobin 31.3 pg (26-34); Mean Corpuscular Volume 97.1 fl (80-100); Mean Platelet Volume 12.5 fl (7.4-10.4); Monocytes Absolute Auto 0.4 K/mm3 (0.1-0.6); Monocytes Percent Auto 8.1 % (2.6-8.5); Neutrophils Absolute Auto 2.9 K/mm3 (1.3-6.7); Neutrophils Percent Auto 52.6 % (45.5-73.1); Platelet Count Result 174 k/mm3 (150-375); Red Blood Count 4.82 M/mm3 (4.2-5.4); Red Cell Distribution Width 13.1 % (11.5-14.5); White Blood Count 5.5 K/mm3 (4.5-10.0)
[2024-06-05 09:45] LABS: Alanine Aminotransferase 19 U/L (6-35); Albumin Level 4.1 g/dL (3.5-5.1); Alkaline Phosphatase 70 U/L (38-126); Anion Gap 9 mmol/L (4-12); Aspartate Amino Transferase 20 U/L (14-36); Bilirubin,Total 0.6 mg/dL (0.2-1.3); Blood Urea Nitrogen 17 mg/dL (7-17); Calcium 9.3 mg/dL (8.4-10.2); Carbon Dioxide 28 mmol/L (22-30); Chloride 105 mmol/L (98-107); Cholesterol 157 mg/dL (0-200); Estimated Glomerular Filt Rate > 60; Glucose 100 mg/dL (65-110); HDL Direct 48 mg/dL; Potassium 4.2 mmol/L (3.4-5.0); Sodium 142 mmol/L (137-145); Triglycerides 244 mg/dL (<150)
[2024-06-05 09:58] LABS: LDL Cholesterol Direct 77 mg/dL
[2024-06-05 10:26] LABS: Thyroid Stimulating Hormone 0.069 uIU/mL (0.465-4.680); Total Triiodothyronine (T3) 1.42 NG/ML (0.97-1.69)
== END 2024-06-05 08:25 | disposition home or self-care (01) ==
PROVIDERS: PCP Internal Medicine; Visit Provider Internal Medicine Cardiovascular Disease
DX: R53.83 Other fatigue (principal); R60.0 Localized edema; I25.10 Atherosclerotic heart disease of native coronary artery without angina pectoris; E78.5 Hyperlipidemia, unspecified; I10 Essential (primary) hypertension; R07.89 Other chest pain; R94.31 Abnormal electrocardiogram [ECG] [EKG]
CPT/HCPCS: 36415; 80053; 80061; 84439; 84443; 84480; 85025

== ENCOUNTER 2024-10-05 14:44 | Outpatient (CLI) | payer MEDICARE, SELFPAY ==
--- NOTE | ~2024-10-05 | CT_ITS ---
CT diagnostic chest wo con Ordering provider: Keegan Farah, History: 84 years Female with . rt lower rib pain, post fall . Comparison: None. Technique: CT chest without IV contrast.Radiation reduction technique utilized. The dose-length produ ct was 171.46 mGy-cm. FINDINGS: VISUALIZED THORACIC INLET: Bilateral thyroid nodules larger on the left side. MEDIASTINUM: Aorta/coronary arteries: Mild atheromatous disease. Heart/other: The heart is slightly enlarged. Lymph nodes: No mediastinal or hilar adenopathy. LUNGS: Nodule is seen in the left apical area measuring 1.5 x 1.2x 1.9 cm. PET-CT scan is advised. Nodule in the right lower lobe is seen measuring 3 mm. No pulmonary masses. N o infiltrates or effusions. No pneumothorax. VISUALIZED UPPER ABDOMEN: Small cyst in the left kidney lower pole. Status post cholecystectomy. Othe rwise, the visualized upper abdomen is normal. MUSCULOSKELETAL: Soft tissues: The superficial soft tissues are normal. Bones: Age appropriate degenerative changes of the spine. Healing rib fractures in the right hemithorax. IMPRESSION: 1. No acute cardiopulmonary pathology. 2. Nodule in the left apical area. Further evaluation with PET- CT scan is advised. 3. Tiny nodule in the right lower lobe. 4. Bilateral thyroid nodules larger on the left side. Reviewed, dictated and finalized at location A. IMPRESSION: 1. No acute cardiopulmonary pathology. 2. Nodule in the left apical area. Further evaluation with PET- CT scan is adv ised. 3. Tiny nodule in the right lower lobe. 4. Bilateral thyroid nodules larger on the left side.
== END 2024-10-05 14:45 | disposition home or self-care (01) ==
PROVIDERS: PCP Internal Medicine; Visit Provider Internal Medicine
DX: R91.1 Solitary pulmonary nodule (principal); E04.2 Nontoxic multinodular goiter
CPT/HCPCS: 71250

== ENCOUNTER 2024-10-27 08:49 | Outpatient (CLI) | payer MEDICARE, SELFPAY ==
--- NOTE | ~2024-10-27 | PE_ITS ---
EXAMINATION: PET skull to mid thigh DATE: 10/27/2024 10:57 INDICATION: Lung nodule TECHNIQUE: Blood glucose level was 100 mg/dL. 12.488 mCi of 18-fluorodeoxyglucose (18-FDG) was admini stered i.v. Low dose computed tomography (CT) images were acquired from the base of the brain to the proximal thighs for attenuation correction and anatomic localization. Positron emission tomography (P ET) images were acquired in the same distribution beginning 60 minutes after injection. Images includ ing fused PET/CT images were reconstructed in axial, coronal, and sagittal planes. Automated exposure control technique was employed. The dose-length product was 990.06mGy-cm. COMPARISON: PET/CT dated 06/25/[address] dated 10/05/2024 FINDINGS: Head/neck: There is symmetric increased activity in the oral cavity, palatine tonsils, parotid glands, submandi bular glands, laryngeal muscles and ocular muscles without CT correlate, likely physiologic. There is asymmetric increased uptake associated with mucosal thickening right maxillary sinus with central ca lcifications and with thickened sclerotic shaw to sinus consistent with likely ongoing chronic sinus itis. Multinodular goiter without abnormal increased FDG uptake. No pathologically enlarged cervical lymphadenopathy or suspicious foci of increased FDG uptake in the visualized head or neck. Chest: Mild increased uptake with maximal SUV of 4.0 associated with a 1.8 x 1.4 cm left apical nodule. The nodule appears slightly larger and more dense than on the PET/CT from 06/10/2018 at which time it juan ured approximately 1.7 x 1.2 cm. No other new or enlarging pulmonary nodules, pneumonia, pulmonary ed nita or pleural effusion. Heart size is normal. Atherosclerotic coronary artery calcifications. No per icardial effusion. Thoracic aorta is normal in caliber. No pathologically enlarged thoracic lymphaden opathy. Abdomen/pelvis/proximal thighs: Physiologic renal accumulation and excretion of FDG activity in the kidneys, bladder and along portio ns of ureters. Cholecystectomy clips in the gallbladder fossa. Normal degree and heterogenous pattern of increased uptake throughout the liver without radiologic correlate or dominant FDG avid lesion. T he gallbladder, pancreas, spleen and bilateral adrenal glands are normal. Mild uptake scattered throu ghout the bowels without radiologic correlate, also likely physiologic. The tip of the cecum extends into a small indirect right inguinal hernia. No bowel obstruction. The uterus is not identified and h as likely been surgically resected. No other abnormal foci of increased FDG uptake or pathologically enlarged lymphadenopathy in the abdomen, pelvis or proximal thighs. Musculoskeletal: Mild thoracic kyphosis. Moderate spondylosis in the cervical, thoracic and lumbar spine. No suspiciou s lytic, blastic or abnormally FDG avid bone lesions. IMPRESSION: 1. Minimal increase in size and density and mild increased FDG uptake associated with a now 1.8 x 1.4 similar left apical nodule which raises concern for very slowly growing lung cancer such as bronchoa lveolar carcinoma. Given patient age, the minimal growth over 5 years and depending on how this would affect clinical management could consider either continued follow-up or percutaneous CT-guided biops y for more definitive determination. 2. No other lesions suspicious for primary malignancy or metastatic disease. 3. Multinodular goiter. Reviewed, dictated and finalized at location A. IMPRESSION: 1. Minimal increase in size and density and mild increased FDG uptake associate d with a now 1.8 x 1.4 similar left apical nodule which raises concern for very slowly growing lung cancer such as bronchoalveolar carcinoma. Given patient ag e, the minimal growth over 5 years and depending on how this would affect clini demian management could consider either continued follow-up or percutaneous CT-deborah ded biopsy for more definitive determination. 2. No other lesions suspicious for primary malignancy or metastatic disease. 3. Multinodular goiter.
--- OUTSIDE RECORDS SUMMARY | 2024-10-27 09:01 | XMS_ITS | Data Portability ---
Author Organization [place] - [facility], Main Office Address [address] [place] [address] Care Team Providers Care Field Organizer Name Role Phone SHAAN FARAH Primary Care Provider SHAAN FARAH Referring Provider [phone] Assessment No assessment recorded. Plan of Treatment Reminders Order Date Submit Date Provider Last Modified By Organization Details Last Modified Time Details Appointments Any 15 2024 11:00A M Shaan Farah MD Not available Not available Not available Lab vitamin D, 25-hydrox y, total, serum 2023 [facility] ([facility]), [address] [place], [address], 01/22/2024 21:21:44 CMP, serum or plasma 2023 [facility] ([facility]), [address] [place], [address], 01/22/2024 20:40:34 CBC w/ auto diff 2023 [facility] ([facility]), [address] [place], [address], 01/22/2024 18:39:24 lipid panel, serum 2023 [facility] ([facility]), [address] [place], [address], 01/22/2024 20:40:39 Referral None recorded. Procedures None recorded. Surgeries None recorded. Imaging CT, chest, w/o contrast - STAT, ph # [phone] [facility], [address], [place], [address], 10/12/2024 10:14:23 bone density - Please call patient to schedule. [facility] w/ [facility] 2024 025 [email or web address] [facility], [address], [address], [place], [address], 06/24/2024 10:52:54 Medication Orders tramadol 50 mg tablet 2024 025 [id number], [address], [place], [place], [id number], 10/05/2024 12:27:20 trazodone 50 mg tablet 2023 [email or web address] #[id number], [address], [place], [place], [id number], 09/18/2023 12:06:38 Anusol-HC 2.5 % topical cream with perineal applicato r 2023 024 [id number], [address], [place], [place], [id number], 09/18/2023 10:27:16 Patient TargetsNo targets recorded. 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 Results Created Date Observation Date Name Description Value Unit Range Abnormal Flag Note LastModifiedBy Organization Detail LastModifiedTime 01/22/2001/22/2024 CBC/C OMPLE TE BLD COUNT W/DIF F white blood cells 6.9 x10'3 /uL 4.2-10 .8 Not Available [facility] (Lab) [address] [place], [address], 01/22/2024 18:39:24 01/22/20 24 01/22/2024 CBC/C OMPLE TE BLD COUNT W/DIF F red blood cells 4.59 x10'6 /uL 3.80-5 .20 Not Available [facility] (Lab) [address] [place], [address], 01/22/2024 18:39:24 01/22/2001/22/2024 CBC/C OMPLE TE BLD COUNT W/DIF F hemoglobin 15.1 g/dL 12.0-1 5.6 Not Available [facility] (Lab) [address] [place], [address], 01/22/2024 18:39:24 01/22/2001/22/2024 CBC/C OMPLE TE BLD COUNT W/DIF F hematocrit 46.7 % 35.7-4 5.7 high Not Available [facility] (Lab) [address] [place], [address], 01/22/2024 18:39:24 01/22/2001/22/2024 CBC/C OMPLE TE BLD COUNT W/DIF F mean red cell volume 101.7 fL 82.0-9 9.0 high Not Available [facility] (Lab) [address] [place], [address], 01/22/2024 18:39:24 01/22/2001/22/2024 CBC/C OMPLE TE BLD COUNT W/DIF F mean red cell hemoglobin 32.9 pg 27.0-3 3.0 Not Available [facility] (Lab) [address] [place], [address], 01/22/2024 18:39:24 01/22/2001/22/2024 CBC/C OMPLE TE BLD COUNT W/DIF F mean RBC HGB concentratio n 32.3 g/dL 31.0-3 6.0 Not Available [facility] (Lab) [address] [place], [address], 01/22/2024 18:39:24 01/22/20 24 01/22/2024 CBC/C OMPLE TE BLD COUNT W/DIF F red cell distribution width 13.6 % 11.8-1 5.5 Not Available [facility] (Lab) [address] [place], [address], 01/22/2024 18:39:24 01/22/2001/22/2024 CBC/C OMPLE TE BLD COUNT W/DIF F platelets 179 x10'3 /uL 150-40 0 Not Available [facility] (Lab) [address] [place], [address], 01/22/2024 18:39:24 01/22/2001/22/2024 CBC/C OMPLE TE BLD COUNT W/DIF F neutrophils 55.2 % 39.0-7 2.0 Not Available [facility] (Lab) [address] [place], [address], 01/22/2024 18:39:24 01/22/2001/22/2024 CBC/C OMPLE TE BLD COUNT W/DIF F lymphocytes 33.2 % 16.0-4 7.0 Not Available [facility] (Lab) [address] [place], [address], 01/22/2024 18:39:24 01/22/2001/22/2024 CBC/C OMPLE TE BLD COUNT W/DIF F monocytes 8.3 % 5.0-12 .0 Not Available [facility] (Lab) [address] [place], [address], 01/22/2024 18:39:24 01/22/2001/22/2024 CBC/C OMPLE TE BLD COUNT W/DIF F eosinophils 2.3 % 1.0-7. 0 Not Available [facility] (Lab) [address] [place], [address], 01/22/2024 18:39:24 01/22/2001/22/2024 CBC/C OMPLE TE BLD COUNT W/DIF F basophils 0.7 % 0.0-2. 0 Not Available [facility] (Lab) [address] [place], [address], 01/22/2024 18:39:24 01/22/2001/22/2024 CBC/C OMPLE TE BLD COUNT W/DIF F immature granulocytes 0.3 % 0.00-0 .50 Not Available [facility] (Lab) [address] [place], [address], 01/22/2024 18:39:24 01/22/2001/22/2024 CBC/C OMPLE TE BLD COUNT W/DIF F neutrophils, absolute count 3.78 x10'3 /uL 1.5-8. 0 Not Available [facility] (Lab) [address] [place], [address], 01/22/2024 18:39:24 01/22/2001/22/2024 CBC/C OMPLE TE BLD COUNT W/DIF F lymphocytes, absolute count 2.28 x10'3 /uL 1.07-3 .43 Not Available [facility] (Lab) [address] [place], [address], 01/22/2024 18:39:24 01/22/2001/22/2024 CBC/C OMPLE TE BLD COUNT W/DIF F monocytes, absolute count 0.57 x10'3 /uL 0.29-0 .99 Not Available [facility] (Lab) [address] [place], [address], 01/22/2024 18:39:24 01/22/2001/22/2024 CBC/C OMPLE TE BLD COUNT W/DIF F eosinophils, absolute count 0.16 x10'3 /uL 0.02-0 .53 Not Available [facility] (Lab) [address] [place], [address], 01/22/2024 18:39:24 01/22/20 24 01/22/2024 CBC/C OMPLE TE BLD COUNT W/DIF F basophils, absolute count 0.05 x10'3 /uL 0.01-0 .08 Not Available [facility] (Lab) [address] [place], [address], 01/22/2024 18:39:24 01/22/20 24 01/22/2024 CBC/C OMPLE TE BLD COUNT W/DIF F immature granulocytes ,absolute 0.02 x10'3 /uL 0.00-0 .05 Not Available [facility] (Lab) [address] [place], [address], 01/22/2024 18:39:24 01/22/2001/22/2024 CBC/C OMPLE TE BLD COUNT W/DIF F nucleated red blood cells 0.0 % -0 Not Available [facility] (Lab) [address] [place], [address], 01/22/2024 18:39:24 01/22/20 24 01/22/2024 CBC/C OMPLE TE BLD COUNT W/DIF F NRBC# 0.00 x10'3 /uL Not Available [facility] (Lab) [address] [place], [address], 01/22/2024 18:39:24 01/22/20 24 01/22/2024 COMPR EHENS LAURA METAB OLIC PANEL sodium 156 mmol/ L 137-14 5 high Not Available [facility] (Lab) [address] [place], [address], 01/22/2024 20:40:34 01/22/20 24 01/22/2024 COMPR EHENS LAURA METAB OLIC PANEL potassium 4.8 mmol/ L 3.5-5. 1 Not Available [facility] (Lab) [address] [place], [address], 01/22/2024 20:40:34 01/22/20 24 01/22/2024 COMPR EHENS LAURA METAB OLIC PANEL chloride 119 mmol/ L 98-107 high Not Available [facility] (Lab) [address] [place], [address], 01/22/2024 20:40:34 01/22/2001/22/2024 COMPR EHENS LAURA METAB OLIC PANEL carbon dioxide 25 mmol/ L 22-30 Not Available [facility] (Lab) [address] [place], [address], 01/22/2024 20:40:34 01/22/20 24 01/22/2024 COMPR EHENS LAURA METAB OLIC PANEL anion gap 16.8 mmol/ L 14-22 Not Available [facility] (Lab) [address] [place], [address], 01/22/2024 20:40:34 01/22/20 24 01/22/2024 COMPR EHENS LAURA METAB OLIC PANEL glucose 113 mg/dL 70-99 high Not Available [facility] (Lab) [address] [place], [address], 01/22/2024 20:40:34 01/22/20 24 01/22/2024 COMPR EHENS LAURA METAB OLIC PANEL BUN 24 mg/dL 8-19 high Not Available [facility] (Lab) [address] [place], [address], 01/22/2024 20:40:34 01/22/20 24 01/22/2024 COMPR EHENS LAURA METAB OLIC PANEL creatinine 0.91 mg/dL 0.66-1 .25 Not Available [facility] (Lab) [address] [place], [address], 01/22/2024 20:40:34 01/22/20 24 01/22/2024 COMPR EHENS LAURA METAB OLIC PANEL GFR 59 Refer ence Range : [place] GFR Healt hy Adult : >60 [...] calcu lator is avail able on the [facility] websi te: [email or web address] :[email or web address] [email or web address] rg/pr ofess ional s/kdo qi/gf r_cal culat or Not Available [facility] (Lab) [address] [place], [address], 01/22/2024 20:40:34 01/22/20 24 01/22/2024 COMPR EHENS LAURA METAB OLIC PANEL alkaline phosphatase 76 U/L 38-126 Not Available [facility] (Lab) [address] [place], [address], 01/22/2024 20:40:34 01/22/20 24 01/22/2024 COMPR EHENS LAURA METAB OLIC PANEL alanine aminotransfe rase 24 U/L 0-35 Not Available [facility] (Lab) [address] [place], [address], 01/22/2024 20:40:34 01/22/20 24 01/22/2024 COMPR EHENS LAURA METAB OLIC PANEL aspartate aminotransfe rase 34 U/L 15-37 Not Available [facility] (Lab) [address] [place], [address], 01/22/2024 20:40:34 01/22/20 24 01/22/2024 COMPR EHENS LAURA METAB OLIC PANEL bilirubin, total 0.70 mg/dL 0.20-1 .30 Not Available [facility] (Lab) [address] [place], [address], 01/22/2024 20:40:34 01/22/20 24 01/22/2024 COMPR EHENS LAURA METAB OLIC PANEL calcium 10.9 mg/dL 8.4-10 .2 high Not Available [facility] (Lab) [address] [place], [address], 01/22/2024 20:40:34 01/22/20 24 01/22/2024 COMPR EHENS LAURA METAB OLIC PANEL total protein 7.8 g/dL 6.3-8. 2 Not Available [facility] (Lab) [address] [place], [address], 01/22/2024 20:40:34 01/22/20 24 01/22/2024 COMPR EHENS LAURA METAB OLIC PANEL albumin 4.9 g/dL 3.0-4. 4 high Not Available [facility] (Lab) [address] [place], [address], 01/22/2024 20:40:34 01/22/20 24 01/22/2024 COMPR EHENS LAURA METAB OLIC PANEL globulin 2.9 g/dL 2.6-4. 2 Not Available [facility] (Lab) [address] [place], [address], 01/22/2024 20:40:34 01/22/20 24 01/22/2024 COMPR EHENS LAURA METAB OLIC PANEL A/G ratio 1.7 ratio 1.0-2. 0 Not Available [facility] (Lab) [address] [place], [address], 01/22/2024 20:40:34 01/22/20 24 01/22/2024 LIPID PANEL cholesterol 212 mg/dL 140-19 9 high NIH DAYANA NSUS RECOM MENDA TION FOR MELANY STERO L: ADULT CHILD LOW RISK: <200 <170 BORDE RLINE : <200- 239 ----- HIGH RISK: >240 >200 Not Available [facility] (Lab) [address] [place], [address], 01/22/2024 20:40:39 01/22/2001/22/2024 LIPID PANEL triglyceride s 213 mg/dL 0-150 high NIH DAYANA NSUS REPOR T RECOM MENDA TION FOR TRIGL YCERI TRICIA: ADULT CHILD LOW RISK: <150 ----- BODER LINE: 150-1 99 ----- HIGH RISK: >200 ----- Not Available [facility] (Lab) [address] [place], [address], 01/22/2024 20:40:39 01/22/2001/22/2024 LIPID PANEL HDL cholesterol 67 mg/dL 40- Not Available [facility] (Lab) [address] [place], [address], 01/22/2024 20:40:39 01/22/20 24 01/22/2024 LIPID PANEL [...] WILL NOT BE REPOR EDWARD. Not Available [facility] (Lab) [address] [place], [address], 01/22/2024 20:40:39 01/22/20 24 01/22/2024 VITAM IN D 25-HY DROXY vd25oh 40.2 NG/mL 30-100 Vitam in D Statu s: Defic ient: <20 ng/mL Insuf ficie nt: 20-29 ng/mL Suffi cient : 30-10 0 ng/mL Not Available [facility] (Lab) [address] [place], [address], 01/22/2024 20:57:09 03/30/20 24 03/30/2024 XR, chest No observ ation record ed. BARCODE Not Available 2023 18:05:22 10/07/19 25 10/06/2024 CT, chest , w/o contr ast No observ ation record ed. [email or web address] [facility] [address] [facility], [place], [address], 10/12/2024 11:07:37 10/13/19 25 10/05/2024 CT, chest , w/o contr ast No observ ation record ed. BARCODE [facility] [address], [place], [address], 10/12/2024 15:14:56 Result Notes None recorded. Problems Name Problem SNOMED Code Status Onset Date Resolution Date Notes Provider Name and Address Organization Details Recorded Time Closed fracture of right patella 37192919592 248230 Active 2022 Not Available [facility] 3 15:38:15 Cellulit is 679191973 Completed Not Available [facility] 3 06:46:37 Hearing loss 16602609 Active Not Available [facility] 3 15:38:15 Pain of right ankle joint 28930349986 376475 Active 2022 Not Available [facility] 3 15:38:15 Insomnia 768521795 Active 2016 Not Available [facility] 3 15:38:15 Angina pectoris 470013409 Completed Not Available [facility] 3 06:46:38 Nail deformit y 893020929 Completed 202001/16/2022 Not Available [facility] 3 06:46:38 Gastroes ophageal reflux disease 105743479 Active Not Available [facility] 3 15:38:15 Thyroid nodule 422356660 Active 2017 Not Available [facility] 3 15:38:15 Infectio n of sebaceou s cyst 171104532 Completed Not Available [facility] 3 06:46:38 Long-ter m drug therapy Completed 202101/16/2022 Not Available [facility] 3 06:46:39 Edema 569545598 Active 2019 Not Available [facility] 3 15:38:15 Adult health examinat ion Active 2020 Not Available [facility] 3 15:38:15 Thoracic back pain 396820460 Completed Not Available [facility] 3 06:46:39 Rib pain 243255267 Active 2022 Not Available [facility] 3 15:38:15 Hypertri glycerid emia 151795621 Active 2020 Not Available [facility] 3 15:38:15 Knee pain Completed Not Available [facility] 3 06:46:40 Facial lacerati on 115658602 Active 2022 Not Available [facility] 3 15:38:15 Osteoart hritis 691985718 Active Not Available [facility] 3 15:38:15 Onychomy cosis of toenails 153339971 Completed 202101/16/2022 Not Available [facility] 3 06:46:40 Solitary nodule of lung 624410137 Active 2022 Not Available [facility] 3 15:38:15 Solitary nodule of lung 148732310 Completed 201901/16/2022 Not Available [facility] 3 06:46:40 Multiple nodules of lung 480858483 Active 2017 PET 07/02, Benign Not Available [facility] 3 15:38:15 Pain of right knee joint 66897574250 4100 Active 2022 Not Available [facility] 3 15:38:16 Coronary arterios clerosis 66533048 Active 2020 Not Available [facility] 3 15:38:16 Acute upper respirat ory infectio n 19145995 Completed Not Available [facility] 3 06:46:41 Hyperlip idemia 61623533 Active Not Available [facility] 3 15:38:16 Essentia l hyperten josé miguel 98327049 Active Not Available [facility] 3 15:38:16 Osteopor osis 99688461 Active 2016 Not Available [facility] 3 15:38:16 Closed fracture of patella 63807999 Active 2022 Not Available [facility] 3 15:38:16 Skin lesion 40424933 Active Not Available [facility] 3 15:38:16 Fracture of patella 67327218 Active 2022 Not Available [facility] 3 15:38:16 Hearing loss 79280436 Active 2022 Not Available [facility] 3 15:38:15 Dysphagi a 02421579 Active 2022 Not Available [facility] 3 15:38:15 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 3 11:02:59 Osteoart hritis of left knee joint 46492826648 9109 Active 2022 NANNETTE Guerra, [place] [facility] 3 08:58:09 Hemorrho ids 71221237 Active 2023 Shaan Farah MD [address] [place] [address], [place] [address], [place], [address] , [place] [facility] 4 10:26:49 Hypercal cemia 15925163 Active 2023 Shaan Farah MD [address], [address], [place], [address] , [facility] 4 08:52:35 Sinusiti s 07646665 Active 2024 Evelin Peng LPN null, [facility] 5 12:48:42 Hypergly cemia 91686968 Active 2024 Shaan Farah MD [address], [address], [place], [address] , [facility] 5 10:30:26 Pain of hip region 32950308 Active 2024 Shaan Farah MD [address], [address], [place], [address] , [facility] 5 16:53:32 Chest wall pain 600010317 Active 2024 Shaan Farah MD [address], [address], [place], [address] , [facility] 5 12:23:39 Computed tomograp hy result abnormal 712508256 Active 2024 NANNETTE Ovalle, [facility] 5 17:20:10 Disorder of thyroid gland 90262841 Active 2024 Evelin Peng LPN null, [facility] 5 11:23:02 Problem Notes None recorded. Procedures Surgical History Date Name Laterality Status Provider Name and Address Organization Details Recorded Time 09/18/19 24 Medicare Wellness CPT Code, subsequent completed Mandy Latham RN [facility] [employer] [facility] 09/18/2023 10:37:37 09/15/19 23 Medicare Wellness CPT Code, subsequent completed Rohsni Gutiérrez RN [facility] [employer] [facility] 09/14/2022 11:19:42 02/14/20 22 Most Recent Bone Density completed Roshni Gutiérrez RN [facility] [employer] [facility] 09/14/2022 11:21:47 06/30/19 10 Date of Last Colonoscopy completed Not Available [facility] 06/13/2022 06:41:20 Appendectomy completed Not Available [facility] 06/13/2022 06:41:23 Hysterectomy completed Not Available [facility] 06/13/2022 06:41:23 Imaging Results None recorded. Procedure Notes None recorded. Medical Equipment None Reported. Allergies Allergen ID Allergen Name Allergen Category Reaction Reaction Severity Criticality Documentation Date Start Date Code Code System Note Provider Name and Address Organization Details Recorded Time 50263 sulfur dioxide medicatio n rash Not available Not available 06/13/2022 44150 79 RxNorm Not Available [facility] 3 06:54:31 18198 Substance with sulfonami de structure and antibacte rial mechanism of action (substanc e) medicatio n rash Not available Not available 06/13/2022 87015 8003 SNOMED Not Available [facility] 3 06:54:31 12223 codeine medicatio n rash Not available Not available 06/13/2022 2670 RxNorm Not Available [facility] 3 06:54:32 Medications Name Sig Start [...] mg tablet TAKE 1 TABLET BY MOUTH ONCE DAILY NEEDED active Not Available Not Available No [...] TAKE 1 TABLET BY MOUTH EVERY WEEK active Not Available Not Available No t Available Nifedical XL 30 mg tablet,exte nded release [...] Available Not Available tramadol 50 mg tablet TAKE 1 TABLET BY MOUTH THREE TIMES DAILY NEEDED active Not Available Not Available No [...] tablet TAKE 1 TABLET BY MOUTH DAILY active Not Available Not Available No t Available econazole nitrate 1 % topical cream APPLY [...] TAKE 1 TABLET BY MOUTH DAILY NEEDED active Not Available Not Available No t Available simvastatin 20 mg tablet TAKE 1 TABLET BY MOUTH DAILY active Not Available Not Available No t Available nystatin 100,000 unit/gram topical cream APPLY TO [...] tablet TAKE 1 TABLET BY MOUTH DAILY active Not Available Not Available No t Available Septra DS 800 mg-160 mg tablet 06/03 completed Not Available Not Available Not Available lisinopril 40 mg tablet TAKE 1 TABLET BY MOUTH DAILY active Not Available Not Available No t Available fluticasone propionate 50 mcg/actuati on nasal spray,suspe [...] in Arterial blood by Pulse oximetry Systolic And Diastolic Provider Name and Address Organization Details Last Updated DateTime 5 162.56 cm 27.1 kg/m2 56955.5 9 g 97.3 [degF] 68 /min 98 % 98 % 100/60 mm[Hg] Radha zuniga [facility] 5 10:04:16 Date Recorded Body height Body mass index (BMI) Body weight Heart rate Oxygen saturation Oxygen saturation in Arterial blood by Pulse oximetry Systolic And Diastolic Provider Name and Address Organization Details Last Updated DateTime 4 162.56 cm 26.9 kg/m2 51393.9 2 g 53 /min 99 % 99 % 120/70 mm[Hg] Angi Rucker [facility] 4 09:52:24 Date Recorded Body height Body mass index (BMI) Body weight Body temperature Heart rate Oxygen saturation Oxygen saturation in Arterial blood by Pulse oximetry Systolic And Diastolic Provider Name and Address Organization Details Last Updated DateTime 5 162.56 cm 26.8 kg/m2 97215.4 1 g 97.3 [degF] 64 /min 97 % 97 % 120/70 mm[Hg] Radha Dinorah nadia [place] [facility] [employer] [facility] 5 09:15:59 Date Recorded Body height Body mass index (BMI) Body weight Body temperature Heart rate Oxygen saturation Oxygen saturation in Arterial blood by Pulse oximetry Provider Name and Address Organization Details Last Updated DateTime 5 162.56 cm 26.6 kg/m2 54186.8 2 g 97.4 [degF] 71 /min 97 % 97 % Radha Dinorah nadia [place] [employer] [facility] 5 12:12:59 Date Recorded Body height Body mass index (BMI) Body weight Body temperature Heart rate Oxygen saturation Oxygen saturation in Arterial blood by Pulse oximetry Systolic And Diastolic Provider Name and Address Organization Details Last Updated DateTime 4 162.56 cm 26.6 kg/m2 62098.8 2 g 97.7 [degF] 62 /min 98 % 98 % 118/64 mm[Hg] Radha Moctezumaisma NANNETTE z[facility] [employer] 4 10:09:40 Social History Question Answer Notes LastModified by Organization Details LastModified Time Tobacco Smoking Status Never Smoker Not Available [facility] 06/13/2022 06:40:29 Do You Have An Advance Directive? Yes [id number] Information not available 06/13/2022 Are You Blind Or Do You Have Difficulty Seeing? No [id number] Information not available 06/13/2022 What Is Your Level Of Caffeine Consumption? Occasional [id number] Information not available 06/13/2022 How Much Tobacco Do You Chew? None [id number] Information not available 06/13/2022 Are You Deaf Or Do You Have Serious Difficulty Hearing? Yes Hearing Aids [id number] Information not available 06/13/2022 What Type Of Diet Are You Following? REGULAR [id number] Information not available 06/13/2022 Which Illicit Or Recreational Drugs Have You Used? None [id number] Information not available 06/13/2022 Have There Been Any Changes To Your Family Or Social Situation? No [email or web address] Information not available 09/18/2023 What Is The Fluoride Status Of Your Home? Fluoridated [id number] Information not available 06/13/2022 Are There Any Guns Present In Your Home? No [id number] Information not available 06/13/2022 Where Do You Live? SingleLevelHouse With Basement [id number] Information not available 06/13/2022 Presence Of Domestic Violence No [email or web address] Information not available 09/14/2022 Guns Present In The Home? No [email or web address] Information not available 09/18/2023 Are You Able To Care For Yourself? Yes Information not available 09/14/2022 Are You Blind Or Do Yo Have Difficulty Seeing? No [email or web address] Information not available 09/14/2022 Are You Deaf Or Do You Have Serious Difficulty Hearing? Yes Hearing Aids [email or web address] Information not available 09/14/2022 General Stress Level? Low [email or web address] Information not available 09/14/2022 Live Alone Of With Others? With Others Information not available 09/14/2022 What Was The Date Of Your Most Recent Tobacco Screening? 09/18/2023 [email or web address] Information not available 09/18/2023 Do You Have Any Pets? No [email or web address] Information not available 09/18/2023 What Is Your Relationship Status? [email or web address] Information not available 09/14/2022 Do You Use Your Seat Belt Or Car Seat Routinely? Yes MIGRATION.[id number] [id number] Information not available 06/13/2022 Do You Have Smoke And Carbon Monoxide Detectors In Your Home? Yes MIGRATION.0301 [id number] Information not available 06/13/2022 Are You Passively Exposed To Smoke? No [email or web address] Information not available 09/18/2023 Are There Any Smokers In Your House? No [email or web address] Information not available 09/18/2023 Do You Use Sunscreen Routinely? Yes MIGRATION.0301 [id number] Information not available 06/13/2022 Do You Have Difficulty Walking Or Climbing Stairs? No MIGRATION.0301 [id number] Information not available 06/13/2022 Sex: Female Functional Status Question Answer Note LastModified by Organizat ion Details LastModified Time What is your level of alcohol consumption? None [id number] Information not available 06/13/2022 Do you have transportation difficulties? No MIGRATION.[id number] 026 Information not available 06/13/2022 Are you able to walk? YESWOREST MIGRATION.[id number] 026 Information not available 06/13/2022 Do you have difficulty doing errands alone? No MIGRATION.[id number] 026 Information not available 06/13/2022 Are you able to care for yourself? Yes MIGRATION.[id number] 026 Information not available 06/13/2022 What is your occupation? retired MIGRATION.[id number] 026 Information not available 06/13/2022 Do you have difficulty dressing or bathing? No MIGRATION.[id number] 026 Information not available 06/13/2022 What is your exercise level? Occasional [email or web address] Information not available 09/18/2023 Mental Status Question Answer Note LastModified by Organizat ion Details LastModified Time Do you have difficulty concentrating, remembering or making decisions? No MIGRATION.[id number] 6 Information not available 06/13/2022 Family History Relationship Description Onset Age of this Age Resolved Age Notes LastModified by Organization Details LastModified Time Mother Heart disease MIGRATION.287 [id number] Not available 06/13/2022 06:41:24 Mother Essential hypertension MIGRATION.545 [id number] Not available 06/13/2022 06:41:24 Father Heart disease MIGRATION.592 [id number] Not available 06/13/2022 06:41:24 Father Essential hypertension MIGRATION.936 [id number] Not available 06/13/2022 06:41:24 Sister Family history of malignant neoplasm MIGRATION.150 [id number] Not available 06/13/2022 06:41:24 Unspecified Relation Diabetes mellitus grands on MIGRATION.848 [id number] Not available 06/13/2022 06:41:24 Notes:NO ENT Medical [...] quadrivalent, PF 3 completed Radha Au, NANNETTE fournier, [place] [employer] 01/14/2023 17:01:22 SARS-COV-2 (COVID-19) vaccine, UNSPECIFIED 1 completed Not Available [facility] 02/21/2023 23:23:27 SARS-COV-2 (COVID-19) vaccine, UNSPECIFIED 1 completed Not Available [facility] 02/21/2023 23:23:27 Influenza, high-dose, trivalent, PF 0 completed Not Available [facility] 02/21/2023 23:23:27 Influenza, split virus, trivalent, preservative 5 completed Not Available [facility] 02/21/2023 23:23:27 Influenza, split virus, quadrivalent, preservative 9 completed Not Available [facility] 02/21/2023 23:23:26 Influenza, split virus, trivalent, preservative 4 completed Not Available [facility] 02/21/2023 23:23:27 Influenza, high-dose, quadrivalent, PF 2 completed Not Available [facility] 02/21/2023 23:23:26 Influenza, high-dose, trivalent, PF 8 completed Not Available [facility] 02/21/2023 23:23:27 Pneumococcal conjugate PCV 13 8 completed Not Available [facility] 02/21/2023 23:23:27 Influenza, split virus, quadrivalent, PF 7 completed Not Available [facility] 02/21/2023 23:23:27 pneumococcal polysaccharide PPV23 6 completed Not Available [facility] 02/21/2023 23:23:27 Influenza, split virus, quadrivalent, PF 6 completed Not Available [employer] 02/21/2023 23:23:27 Influenza, high-dose, trivalent, PF 4 completed Shaan Farah MD [address] [place] [address], [facility] [address], [place], [address], [facility] 01/22/2024 14:18:22 Past Encounters Encounter ID Performer Location Encounter Start Date Encounter Closed Date Diagnosis/Indication Diagnosis SNOMED-CT Code Diagnosis ICD10 Code Diagnosis Note [id number] Shaan Farah MD [facility] Internal Med [id number] [facility] [place] [address] 08/04/2020 00:00:00 08/04/2020 10:38:27 [id number] Shaan Farah MD [facility] Internal Med [address] [address] 08/23/2020 00:00:00 08/23/2020 10:42:01 [id number] Shaan Farah MD [facility] Internal Med [address] [place] [address] 12/27/2020 00:00:00 12/27/2020 10:57:59 [id number] [facility] ic_[address] _ATHENA_M IGRATION_ DEFAULT_1 _1 , 01/27/2021 00:00:00 01/31/2021 12:17:19 [id number] Shaan Farah MD [facility] Internal Med [address] [place] [address] 05/16/2021 00:00:00 05/16/2021 11:37:54 [id number] Shaan Farah MD [facility] Internal Med [address] [address] 09/14/2021 00:00:00 09/14/2021 11:33:41 [id number] Shaan Farah MD [facility] Internal Med [address] [address] 01/17/2022 00:00:00 01/17/2022 12:42:23 [id number] Kevin Albert MD S_[address] [address] 05/10/2022 00:00:00 05/10/2022 16:38:58 [id number] Shaan Farah MD [facility] Internal Med [address] [address] 05/17/2022 00:00:00 05/17/2022 11:23:48 [id number] Kevin Albert MD S_[address] [address] 05/24/2022 00:00:00 05/24/2022 09:39:33 [id number] JANIE El S_[address] [address] 06/14/2022 08:44:19 06/14/2022 09:42:49 Closed fracture of right patella 1221106145 [id number] S82.001D [id number] Kevin Albert MD [facility]_[address] [address] 07/05/2022 08:56:13 07/05/2022 09:40:15 Fracture of patella 08200891 S82.001D [id number] Kevin Albert MD [facility]_[address] [address] 07/26/2022 08:51:56 07/26/2022 09:41:14 Fracture of patella 79574344 S82.001D [id number] Kevin Albert MD S_[address] [address] 08/16/2022 09:08:14 08/16/2022 09:56:16 Pain of right knee joint 6268569415 22764 M25.561 [id number] Shaan Farah MD [facility] Internal Med [address] [address] 09/14/2022 10:29:26 09/14/2022 11:22:49 Essential hypertension 02708934 I10 under control Coronary arteriosclerosis 83129558 I25.10 stable Hyperlipidemia 38630491 E78.5 on meds and under control Gastroesop hageal reflux disease 568607429 K21.9 meds help Thyroid nodule 880843881 E04.1 s/p neg biopsy Solitary n odule of lung 190142137 R91.1 benign, no more w/u Hearing loss 05178426 H9 1.93 using hearing aids Osteoporosis 89415798 M8 1.0 meds on hold by ortho Insomnia 637919065 G47.0 0 trazodone helps Adult heal th examination 116359459 Z00.00 colonoscop y- 06/2009, does not need any moremammog hector- 10/2018, does not want any moredexa-1 neu movax - 12/2015pre vnar 2/18FLU- OV ID- 06/10/20, 07/02/20 booster 01/26/2021 Closed fra cture of right patella 2511848416 5281945 S82.001A seeing dr albert, using cane Screening for disorder 026790345 Z13.9 [id number] Fitz Bella MD [facility] [place] [address] [place] [address] 10/25/2022 11:28:55 10/25/2022 12:21:51 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 [address] 01/14/2023 10:26:55 01/14/2023 11:29:36 Essential hypertension 27771987 I10 under control Coronary arteriosclerosis 57476432 I25.10 stable Hyperlipidemia 42865270 E78.5 on meds and under control Gastroesop hageal reflux disease 028268056 K21.9 meds help Thyroid nodule 382412632 E04.1 s/p neg biopsy Solitary n odule of lung 155999186 R91.1 benign, no more w/u Hearing loss 93590930 H9 1.93 using hearing aids Osteoporosis 88867827 M8 1.0 meds on hold by ortho Insomnia 659640232 G47.0 0 trazodone helps Adult heal th examination 550239634 Z00.00 Colonoscop y- 06/2009, does not need any moreMammog hector- 10/2018, does not want any moreDexa-1 neu movax - 12/2015Pre vnar 2/18FLU- OV ID- 06/10/20, 07/02/20 booster 01/26/2021 Administra tion of influenza vaccine 29879893 Z23 Long-term drug therapy 450991953 Z79.899 Hypertriglyceridemia 302 644564 E78.1 watch diet Multiple n odules of lung 527152704 R91.8 Osteoarthritis 366799242 M19.90 otc [id number] Kevin Albert MD S_[address] [address] 02/14/2023 10:55:53 02/14/2023 16:05:29 Pain of left knee joint 5309329534 28295 M25.261 [id number] Kevin Albert MD S[address] [address] 02/28/2023 08:53:20 02/28/2023 09:37:47 Osteoarthritis of left knee joint 7837969309 11416 M17.12 [id number] Shaan Farah MD [facility] Internal Med [address] [place] [address] 05/17/2023 10:22:47 05/17/2023 11:41:57 Essential hypertension 74368553 I10 under control Coronary arteriosclerosis 67247535 I25.10 stable Hyperlipidemia 06992250 E78.5 on meds and under control, keep watching diet Gastroesop hageal reflux disease 655892914 K21.9 meds help Thyroid nodule 075203365 E04.1 s/p neg biopsy Solitary n odule of lung 007865702 R91.1 benign, no more w/u Hearing loss 92784555 H9 1.93 using hearing aids Osteoporosis 94906173 M8 1.0 meds on hold by ortho Insomnia 858551273 G47.0 0 trazodone prn, has some stress in consuelo family Adult heal th examination 522591141 Z00.00 Colonoscop y- 06/2009, does not need any moreMammog hector- 10/2018, does not want any moreDexa-1 mov - 12/2015Pre vnar 2/18FLU- 3COV ID- 06/10/20, 07/02/20 booster 01/26/2021 Hypertriglyceridemia 302 006726 E78.1 watch diet Multiple n odules of lung 770763844 R91.8 no more w/u Osteoarthritis 668643662 M19.90 otc voltaren [id number] Shaan Farah MD S[facility] Internal [facility] [address] [facility] [place] [address] 09/18/2023 09:34:03 09/18/2023 10:38:34 Essential hypertension 39625370 I10 under control Coronary arteriosclerosis 84523989 I25.10 stable Hyperlipidemia 34628142 E78.5 keep watching diet Gastroesop hageal reflux disease 664459282 K21.9 meds help Thyroid nodule 572435166 E04.1 s/p neg biopsy Solitary n odule of lung 795901250 R91.1 benign, no more w/u Hearing loss 66707582 H9 1.93 using hearing aids Osteoporosis 44548888 M8 1.0 on meds Insomnia 284850128 G47.0 0 trazodone prn, has some stress in consuelo family Adult heal th examination 667538379 Z00.00 Colonoscop y- 06/2009, does not need any moreMammog hector- 10/2018, does not want any moreDexa-1 neu mov - 12/2015Pre vnar 2/18FLU- 3COV ID- 06/10/20, 07/02/20 booster 01/26/2021 Hypertriglyceridemia 302 378278 E78.1 watch diet Multiple n odules of lung 553579624 R91.8 no more w/u Osteoarthritis 618578892 M19.90 otc voltaren Hemorrhoids 18506689 K64 .9 Screening for disorder 203613465 Z13.9 [id number] Shaan Farah MD [facility] Internal Med [address] [facility] [place] [address] 01/22/2024 09:48:27 01/22/2024 11:10:46 Essential hypertension 42637814 I10 under control Coronary arteriosclerosis 14140945 I25.10 stable Hyperlipidemia 04807837 E78.5 keep watching diet Gastroesop hageal reflux disease 447984614 K21.9 meds help Thyroid nodule 509093964 E04.1 s/p neg biopsy Solitary n odule of lung 471625314 R91.1 benign, no more w/u Hearing loss 85637482 H9 1.93 using hearing aids Osteoporosis 52423425 M8 1.0 on meds, dexa next yime Insomnia 346346294 G47.0 0 trazodone helps Adult heal th examination 083042147 Z00.00 Colonoscop y- 06/2009, does not need any moreMammog hector- 10/2018, does not want any moreDexa-1 neu movax - 12/2015Pre vnar 2/18FLU- 01/22/2024 COVID- 06/10/20, 07/02/20 booster 01/26/2021 Hypertriglyceridemia 302 482204 E78.1 watch diet, labs Multiple n odules of lung 130401306 R91.8 no more w/u Osteoarthritis 827017644 M19.90 otc voltaren Hemorrhoids 19796692 K64 .9 meds help Long-term drug therapy 671511720 Z79.899 Administra tion of influenza vaccine 32715222 Z23 [id number] Shaan Farah MD [facility] Internal Med [address] [facility] [place] [address] 05/25/2024 09:48:18 05/25/2024 10:31:45 Essential hypertension 82642228 I10 under control Coronary arteriosclerosis 80453995 I25.10 stable Hyperlipidemia 97667458 E78.5 keep watching diet Gastroesop hageal reflux disease 377599953 K21.9 meds help Thyroid nodule 772976935 E04.1 s/p neg biopsy Solitary n odule of lung 593086893 R91.1 benign, no more w/u Hearing loss 18890962 H9 1.93 using hearing aids Osteoporosis 77798839 M8 1.0 on meds, dexa next yime Insomnia 372907320 G47.0 0 trazodone helps Adult heal th examination 670849086 Z00.00 Colonoscop y- 06/2009, does not need any moreMammog hector- 10/2018, does not want any moreDexa-1 neu movax - 12/2015Pre vnar 2/18FLU- 01/22/2024 COVID- 06/10/20, 07/02/20 booster 01/26/2021 Hypertriglyceridemia 302 067677 E78.1 watch diet, BETTER Multiple n odules of lung 873496019 R91.8 no more w/u Osteoarthritis 260635360 M19.90 otc voltaren Hemorrhoids 61503297 K64 .9 meds help Hypercalcemia 62066061 E 83.52 not ob otc Hyperglycemia 52988556 R 73.9 advise dto watch diet [id number] Shaan Farah MD [facility] [address] [place] [address] 09/22/2024 09:05:35 09/22/2024 10:52:12 Essential hypertension 93481589 I10 under control Coronary arteriosclerosis 66684414 I25.10 stable Hyperlipidemia 18442608 E78.5 keep watching diet Gastroesop hageal reflux disease 771087645 K21.9 meds help Thyroid nodule 379958106 E04.1 s/p neg biopsy Solitary n odule of lung 256460549 R91.1 benign, no more w/u Hearing loss 17208096 H9 1.93 using hearing aids Osteoporosis 92803941 M8 1.0 on meds, dexa being done in 01/07 Insomnia 349107266 G47.0 0 trazodone helps Adult heal th examination 414408945 Z00.00 Colonoscop y- 06/2009, does not need any moreMammog hector- 10/2018, does not want any moreDexa-1 04/2021 scheduled for SeptPneumo vax - 12/2015Pre vnar 2/18FLU- 01/22/2024 COVID- 06/10/20, 07/02/20 booster 01/26/2021 Hypertriglyceridemia 302 101712 E78.1 watching diet Multiple n odules of lung 530322066 R91.8 no more w/u Osteoarthritis 416781489 M19.90 otc Hemorrhoids 42605728 K64 .9 meds help Hypercalcemia 13703475 E 83.52 not ob otc Hyperglycemia 03252620 R 73.9 advised to watch diet [id number] Shaan Farah MD [facility] [address] [place] [address] 10/05/2024 12:06:45 10/05/2024 12:39:05 Chest wall pain 333358721 R07.89 Health Concerns Section Related Observation LastModified by Organization Detai ls LastModified Time None Recorded Concern Status LastModified by Organization Details LastModified Time None Recorded Advance Directives Directive Y: Payers Insurance Date Sequence Insurance Name Policy Number Policy Briggs Covered Member ID Briggs Member ID Guarantor Name 10/05/2024 1 [facility] - MEDICARE SOLUTIONS - MEDICARE COMPLETE (MEDICARE REPLACEMENT HMO) [id number] [place] [address] Harjit [id number] Monica L Harjit Notes Date Note Type Note Provider Name and Address Organization Details Recorded Time 09/18/2023 text/html Doing fine, compliant to medications, [...] albert, has healed Shaan Farah MD [address] [facility], [place], [address], [facility] [employer] 09/18/2023 12:01:30 01/22/2024 text/html Doing fine, compliant [...] furosemide and betterMultiple nodular goiter- biopsy neg 2017Insomnia- Takes Trazodone every nightPulm nodule- PET scan 07/02, BENIGN, never smoked, seen pulm , biopsy could not be done due to location, NO MORE W/U NEEDEDLeft knee pain, MRI showed meniscus tear and effusion, s/p shots, better, seen ortho in the past , using voltaren gel Right patellar fx, seen dr albert, has healed Shaan Farah MD [address] [facility], [address], [place], [address], [employer] [facility] [employer] 01/22/2024 14:18:27 05/25/2024 text/html Doing fine, compliant to medications, no side affects, here for follow up.PT IS NOT FASTING ( [facility] ) HEARING LOSS, using hearing aids Hemorroides- [...] symptoms dr Méndez- on meds, LAST DEXA 03/06, DUEMeds- Alendronate 70 mg weeklyHearing loss- getting new hearing aidsEdema- on furosemide and betterMeds- Furosemide 20mg daily Multiple nodular goiter- biopsy neg 2017Insomnia- Takes Trazodone every nightPulm nodule- PET scan 07/02, BENIGN, never smoked, seen pulm , biopsy could not be done due to location, NO MORE W/U NEEDEDLeft knee pain, MRI showed meniscus tear and effusion, s/p shots, better, seen ortho in the past , using voltaren gel Right patellar fx, seen dr albert, has healed Shaan Farah MD [address] [facility], [place], [address], [place] [facility] [employer] 05/25/2024 10:31:04 09/22/2024 text/html Doing fine, compliant to medications, no side affects, here for follow up.PT IS FASTING ( [facility] ) HEARING LOSS, using hearing aids Hemorroides- Has been dealing with them for years, Usually would just use preparation H. Denies any bleeding at the moment. Does not want surgery HTN- under control with medsMeds- Lisinopril 40 mg qd, Amlodipine 10 mg qd,Hyperlipidemia- better, advised to watch diet, Trig were high,Meds- Simvastatin 20 mg qdGERD- controlled with medsMeds- Pantoprazole 40 mgCAD- medical management, no symptoms dr Méndez- on meds, LAST DEXA 03/06, DUE, has been orderedMeds- Alendronate 70 mg weeklyHearing loss- getting new hearing aidsEdema- on furosemide and betterMeds- Furosemide 20mg daily Multiple nodular goiter- biopsy neg 2018Insomnia- Takes Trazodone every nightPulm nodule- PET scan 07/02, BENIGN, never smoked, seen pulm , biopsy could not be done due to location, NO MORE W/U NEEDED3 mm nodule seen on cxr in 09/06Left knee pain, MRI showed meniscus tear and effusion, s/p shots, better, seen ortho in the past , using voltaren gel h/o Right patellar fx, no more symptoms Shaan Farah MD [address], [facility] [address], [place], [address], [facility] [employer] [facility] 09/22/2024 09:52:05 10/05/2024 text/html Pt is here today for Right rib pain. States that on 08/22 she choked, started coughing so she leaned over a chair at home to dislodge it and she slide down and landed on the floor. She did go to [facility] and have it Xrayed that showed no fracture but she is still in pain.Pain level is 9/10. Has not been sleeping. Had 1 hours of sleep last night so she feels wore out this morning.she has no cough, sob or fever. no rash Alex is getting better but came back worse Shaan Farah MD [address], [facility] [address], [place], [address], [employer] 10/05/2024 12:28:29 OBGyn Episode No OBEpisode recorded.
--- OUTSIDE RECORDS SUMMARY | 2024-10-27 09:01 | XMS_ITS | Clinical Summary ---
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 Gender Identity Not on file Sexual Orientation Not on file Last Filed Vital Signs Vital Sign Reading Time Taken Comments Blood Pressure 105/58 05/05/2022 3:30 PM WELDING MACHINE OPERATOR [employer]ERMIT Pulse 79 05/05/2022 1:36 PM WELDING MACHINE OPERATOR THERMIT Temperature 36.3 C (97.4 F) 05/05/2022 1:36 PM WELDING MACHINE OPERATOR THERMIT Respiratory Rate 20 05/05/2022 1:13 PM WELDING MACHINE OPERATOR THERMIT Oxygen Saturation 90% 05/05/2022 3:30 PM WELDING MACHINE OPERATOR THERMIT Inhaled Oxygen Concentration - - Weight 73 kg (161 lb) 05/05/2022 1:13 PM WELDING MACHINE OPERATOR THERMIT Height 162.6 cm (5' 4) 05/05/2022 1:13 PM WELDING MACHINE OPERATOR THERMIT Body Mass Index 27.64 05/05/2022 1:13 PM WELDING MACHINE OPERATOR THERMIT Plan of Treatment Health Maintenance Due Date Last Done Comments Hepatitis C Virus (HCV) Screening 1940 Zoster Immunization (1 of 2) 1988 Respiratory Syncytial Virus (RSV) Immunization (Adult) (1 - 1-dose 75+ series) 2013 SARS-COV-2 Immunization ( season) 2023 01/26/2021, 07/02/2020, 07/02/2020, Additional history exists Influenza Immunization (#1) 2024 1008/2021, 02/14/2021, 01/29/2020, Additional history exists Pneumococcal Immunization (50+ years) Completed 05/16/2017, 12/23/2015 DTaP/Tdap/Td Immunization Discontinued 05/05/2022 Hepatitis B Immunization Aged Out No longer eligible based on patient's age to complete this topic Human Papillomavirus (HPV) Immunization Aged Out No longer eligible based on patient's age to complete this topic Meningococcal Immunization (ACWY) Aged Out No longer eligible based on patient's age to complete this topic Rotavirus Immunization Aged Out No lo nger eligible based on patient's age to complete this topic Insurance MEDICARE C [facility] Care Teams Sawyer Cork Slabs Relationship Specialty Start Date End Date Keegan Farah MD PCP - General Internal Medicine 05/05/22
== END 2024-10-27 08:50 | disposition home or self-care (01) ==
PROVIDERS: PCP Internal Medicine; Visit Provider Internal Medicine
DX: R91.1 Solitary pulmonary nodule (principal); R93.89 Abnormal findings on diagnostic imaging of other specified body structures; E04.2 Nontoxic multinodular goiter
CPT/HCPCS: 78815; A9552

== ENCOUNTER 2024-11-09 14:13 | Outpatient (CLI) | payer MEDICARE, SELFPAY ==
--- NOTE | ~2024-11-09 | DEXA_ITS ---
Bone Density Report Name: AMANDEEP CARMICHAEL Age: 84 Sex: Female Ethnicity: White Date of : 1940 Indication: postmenopausal; screening for osteoporosis; height loss; hysterectomy; Referring Provider: PRABHA, SHAAN Martinez Study: Bone densitometry was performed. Exam Date: November 09, 2024 Accession number: [id number] Bone Density: Region BMD T-score Z-score Classification AP Spine(L1-L4) 0.739 -2.8 0.1 Osteoporosis Femoral Neck (Left) 0.562 -2.6 -0.1 Osteoporosis Total Hip (Left) 0.678 -2.2 0.2 Osteopenia Femoral Neck (Right) 0.598 -2.3 0.3 Osteopenia Total Hip (Right) 0.673 -2.2 0.1 Osteopenia Total Hip Mean 0.676 -2.2 0.2 Osteopenia World Health Organization criteria for BMD impression classify patients as: Normal (T-score at or above -1.0), Osteopenia (T-score between -1.0 and -2.5), or Osteoporosis (T-score at or below -2.5). 10-year Fracture Risk: FRAX not reported because: Some T-score for Spine Total or Hip Total or Femoral Neck at or below -2.5 Clinical Information Provided by Patient: Has used the following medications: MULTI VITAMIN WITH CALCIUM Has the following medical conditions: Hysterectomy Patient maximum height was 64.5 Menopause Age: 48 Onset of menses at age 12 Number of children 3 Impression: The patient has osteoporosis, based on the Total Spine T-score. Discussion: INCREASED RISK OF FRACTURE. BONE DENSITY IS UNDESIRABLY LOW AT ONE OR MORE SKELETAL SITES, CONSISTENT WITH POSTMENOPAUSAL OSTEOPOROSIS. This patient's lowest T-score meets the World Health Organization's (WHO) criteria for osteoporosis at one or more sites (T-score -2.5 or below). In untreated patients, the risk of osteoporotic fracture increases approximately two-fold for each 1.0 SD decrease in T-score. Low bone density is not the only risk factor for fracture; also consider factors such as patient's age, frailty or poor health, risk of falling, risk of injury, previous osteoporotic fracture, family history of osteoporosis, cigarette smoking, low body weight, etc. Not everyone with low bone mineral density has osteoporosis; osteomalacia and other metabolic bone disorders should also be considered. Patients who have osteoporosis should be evaluated for specific diseases and conditions (secondary causes) that may cause or contribute to bone loss. The [place] [employer] Endocrinologists (AACE) and National Osteoporosis Foundation (NOF) recommend pharmacologic intervention for all postmenopausal women whose T-score is in this range. The patient should follow a healthful lifestyle (good nutrition with adequate calcium and vitamin D, and appropriate weight-bearing exercise). Follow-Up: Consider a repeat BMD and Vertebral Fracture Assessment (VFA) exam in 2 years or sooner if medically necessary, to reassess this patient's status. Reported by: JAMES on 11/09/2024 2:52:00 PM. Reviewed, dictated and finalized at location A.
--- OUTSIDE RECORDS SUMMARY | 2024-11-09 14:18 | XMS_ITS | Data Portability ---
Author Organization [place] - [facility] Strut, Main Office Address [address] [place] [address] Care Team Providers Care Digital Marketing Specialist Name Role Phone SHAAN FARAH Primary Care Provider SHAAN FARAH Referring Provider Assessment No assessment recorded. Plan of Treatment Reminders Order Date Submit Date Provider Last Modified By Organization Details Last Modified Time Details Appointments Any 15 2024 11:00A M Shaan Farah MD Not available Not available Not available Lab CMP, serum or plasma [address] ([facility]), [address] [place], [address], 11/05/2024 10:33:37 amylase, serum or plasma [address] ([facility]), [address] [place], [address], 11/05/2024 10:33:38 amylase + lipase, serum [address] ([facility]), [address] [place], [address], 11/05/2024 10:33:38 CBC w/ auto diff [address] ([facility]), [address] [place], [address], 11/05/2024 10:33:38 vitamin D, 25-hydrox y, total, serum 2023 024 [facility] ([facility]), [address] [place], [address], 01/22/2024 21:21:44 CMP, serum or plasma 2023 024 [facility] ([facility]), [address] [place], [address], 01/22/2024 20:40:34 CBC w/ auto diff 2023 024 [facility] ([facility]), [address] [place], [address], 01/22/2024 18:39:24 lipid panel, serum 2023 024 [facility] ([facility]), [address] [place], [address], 01/22/2024 20:40:39 Referral None recorded. Procedures None recorded. Surgeries None recorded. Imaging CT, abdomen + pelvis, w/wo contrast - Please call patient to schedule. 2024 025 [facility], [facility] [address], [address], 11/05/2024 12:11:28 CT, chest, w/o contrast - STAT, ph # [phone] [facility], [facility] [address], [address], 10/12/2024 10:14:23 bone density - Please call patient to schedule. [facility]/ [facility] 2024 025 [email or web address] [facility], [address] [place] [address] [address], [place], [address], 06/24/2024 10:52:54 Medication Orders tramadol 50 mg tablet 2024 025 [id number], [address] , [place], [place], [id number], 10/05/2024 12:27:20 Patient TargetsNo targets recorded. Patient InstructionsNo instructions recorded. Reason for Referral None Reported. Results Created Date Observation Date Name Description Value Unit Range Abnormal Flag Note LastModifiedBy Organization Detail LastModifiedTime 01/22/2001/22/2024 CBC/C OMPLE TE BLD COUNT W/DIF F white blood cells 6.9 x10'3 /uL 4.2-10 .8 Not Available [facility] (Lab) [address] [place], [address], 01/22/2024 18:39:24 01/22/20 24 01/22/2024 CBC/C OMPLE TE BLD COUNT W/DIF F red blood cells 4.59 x10'6 /uL 3.80-5 .20 Not Available [facility] (Lab) [address] [place], [address], 01/22/2024 18:39:24 01/22/20 24 01/22/2024 CBC/C OMPLE TE BLD COUNT W/DIF F hemoglobin 15.1 g/dL 12.0-1 5.6 Not Available [facility] (Lab) [address] [place], [address], 01/22/2024 18:39:24 01/22/2001/22/2024 CBC/C OMPLE TE BLD COUNT W/DIF F hematocrit 46.7 % 35.7-4 5.7 high Not Available [facility] (Lab) [address] [place], [address], 01/22/2024 18:39:24 01/22/20 24 01/22/2024 CBC/C OMPLE TE BLD COUNT W/DIF F mean red cell volume 101.7 fL 82.0-9 9.0 high Not Available [facility] (Lab) [address] [place], [address], 01/22/2024 18:39:24 01/22/2001/22/2024 CBC/C OMPLE TE BLD COUNT W/DIF F mean red cell hemoglobin 32.9 pg 27.0-3 3.0 Not Available [facility] (Lab) [address] [place], [address], 01/22/2024 18:39:24 01/22/2001/22/2024 CBC/C OMPLE TE BLD COUNT W/DIF F mean RBC HGB concentratio n 32.3 g/dL 31.0-3 6.0 Not Available [facility] (Lab) [address] [place], [address], 01/22/2024 18:39:24 01/22/2001/22/2024 CBC/C OMPLE TE BLD COUNT W/DIF F red cell distribution width 13.6 % 11.8-1 5.5 Not Available [facility] (Lab) [address] [place], [address], 01/22/2024 18:39:24 01/22/2001/22/2024 CBC/C OMPLE TE BLD COUNT W/DIF F platelets 179 x10'3 /uL 150-40 0 Not Available [facility] (Lab) [address] [place], [address], 01/22/2024 18:39:24 01/22/2001/22/2024 CBC/C OMPLE TE BLD COUNT W/DIF F neutrophils 55.2 % 39.0-7 2.0 Not Available [facility] (Lab) [address] [place], [address], 01/22/2024 18:39:24 01/22/20 24 01/22/2024 CBC/C OMPLE TE BLD COUNT W/DIF F lymphocytes 33.2 % 16.0-4 7.0 Not Available [facility] (Lab) [address] [place], [address], 01/22/2024 18:39:24 01/22/2001/22/2024 CBC/C OMPLE TE BLD COUNT W/DIF F monocytes 8.3 % 5.0-12 .0 Not Available [facility] (Lab) [address] [place], [address], 01/22/2024 18:39:24 01/22/2001/22/2024 CBC/C OMPLE TE BLD COUNT W/DIF F eosinophils 2.3 % 1.0-7. 0 Not Available [facility] (Lab) [address] [place], [address], 01/22/2024 18:39:24 01/22/2001/22/2024 CBC/C OMPLE TE BLD COUNT W/DIF F basophils 0.7 % 0.0-2. 0 Not Available [facility] (Lab) [address] [place], [address], 01/22/2024 18:39:24 01/22/2001/22/2024 CBC/C OMPLE TE BLD COUNT W/DIF F immature granulocytes 0.3 % 0.00-0 .50 Not Available [facility] (Lab) [address] [place], [address], 01/22/2024 18:39:24 01/22/2001/22/2024 CBC/C OMPLE TE BLD COUNT W/DIF F neutrophils, absolute count 3.78 x10'3 /uL 1.5-8. 0 Not Available [facility] (Lab) [address] [place], [address], 01/22/2024 18:39:24 01/22/20 24 01/22/2024 CBC/C OMPLE TE BLD COUNT W/DIF F lymphocytes, absolute count 2.28 x10'3 /uL 1.07-3 .43 Not Available [facility] (Lab) [address] [place], [address], 01/22/2024 18:39:24 01/22/2001/22/2024 CBC/C OMPLE TE BLD COUNT W/DIF F monocytes, absolute count 0.57 x10'3 /uL 0.29-0 .99 Not Available [facility] (Lab) [address] [place], [address], 01/22/2024 18:39:24 01/22/2001/22/2024 CBC/C OMPLE TE BLD COUNT W/DIF F eosinophils, absolute count 0.16 x10'3 /uL 0.02-0 .53 Not Available [facility] (Lab) [address] [place], [address], 01/22/2024 18:39:24 01/22/2001/22/2024 CBC/C OMPLE TE BLD COUNT W/DIF F basophils, absolute count 0.05 x10'3 /uL 0.01-0 .08 Not Available [facility] (Lab) [address] [place], [address], 01/22/2024 18:39:24 01/22/2001/22/2024 CBC/C OMPLE TE BLD COUNT W/DIF F immature granulocytes ,absolute 0.02 x10'3 /uL 0.00-0 .05 Not Available [facility] (Lab) [address] [place], [address], 01/22/2024 18:39:24 01/22/2001/22/2024 CBC/C OMPLE TE BLD COUNT W/DIF F nucleated red blood cells 0.0 % -0 Not Available [facility] (Lab) [address] [place], [address], 01/22/2024 18:39:24 01/22/20 01/22/2024 CBC/C OMPLE TE BLD COUNT W/DIF F NRBC# 0.00 x10'3 /uL Not Available [facility] (Lab) [address] [place], [address], 01/22/2024 18:39:24 01/22/20 24 01/22/2024 COMPR EHENS LAURA METAB OLIC PANEL sodium 156 mmol/ L 137-14 5 high Not Available [facility] (Lab) [address] [place], [address], 01/22/2024 20:40:34 01/22/2001/22/2024 COMPR EHENS LAURA METAB OLIC PANEL potassium 4.8 mmol/ L 3.5-5. 1 Not Available [facility] (Lab) [address] [place], [address], 01/22/2024 20:40:34 01/22/20 24 01/22/2024 COMPR EHENS LAURA METAB OLIC PANEL chloride 119 mmol/ L 98-107 high Not Available [facility] (Lab) [address] [place], [address], 01/22/2024 20:40:34 01/22/20 24 01/22/2024 COMPR EHENS LAURA METAB OLIC PANEL carbon dioxide 25 mmol/ L 22-30 Not Available [facility] (Lab) [address] [place], [address], 01/22/2024 20:40:34 01/22/20 24 01/22/2024 COMPR EHENS LAURA METAB OLIC PANEL anion gap 16.8 mmol/ L 14-22 Not Available [facility] (Lab) [address] [place], [address], 01/22/2024 20:40:34 01/22/20 24 01/22/2024 COMPR EHENS LAURA METAB OLIC PANEL glucose 113 mg/dL 70-99 high Not Available [facility] (Lab) [address] [place], [address], 01/22/2024 20:40:34 01/22/20 24 01/22/2024 COMPR EHENS LAURA METAB OLIC PANEL BUN 24 mg/dL 8-19 high Not Available [facility] (Lab) [address] [place], [address], 01/22/2024 20:40:34 01/22/20 24 01/22/2024 COMPR EHENS LAURA METAB OLIC PANEL creatinine 0.91 mg/dL 0.66-1 .25 Not Available [facility] (Lab) [address] [place], [address], 01/22/2024 20:40:34 01/22/20 24 01/22/2024 COMPR EHENS LAURA METAB OLIC PANEL GFR 59 Refer ence Range : [place] ge GFR Healt hy Adult : >60 [...] or ethni c subgr oups, such as Hisri nics. Outsi de the valid ated irwin [...] calcu lator is avail able on the [facility] websi te: https ://yesika hearn.dana lagos.o rg/pr ofess ional s/kdo qi/gf r_cal culat or Not Available [facility] (Lab) [address] [place], [address], 01/22/2024 20:40:34 01/22/20 24 01/22/2024 COMPR EHENS LAURA METAB OLIC PANEL alkaline phosphatase 76 U/L 38-126 Not Available [facility] (Lab) [address] [place], [address], 01/22/2024 20:40:34 01/22/20 24 01/22/2024 COMPR EHENS LAURA METAB OLIC PANEL alanine aminotransfe rase 24 U/L 0-35 Not Available [facility] (Lab) [address] [place], [address], 01/22/2024 20:40:34 01/22/20 24 01/22/2024 COMPR EHENS LAURA METAB OLIC PANEL aspartate aminotransfe rase 34 U/L 15-37 Not Available [facility] (Lab) [address] [place], [address], 01/22/2024 20:40:34 01/22/20 24 01/22/2024 COMPR EHENS LAURA METAB OLIC PANEL bilirubin, total 0.70 mg/dL 0.20-1 .30 Not Available [facility] (Lab) [address] [place], [address], 01/22/2024 20:40:34 01/22/20 24 01/22/2024 COMPR EHENS LAURA METAB OLIC PANEL calcium 10.9 mg/dL 8.4-10 .2 high Not Available [facility] (Lab) [address] [place], [address], 01/22/2024 20:40:34 01/22/20 24 01/22/2024 COMPR EHENS LAURA METAB OLIC PANEL total protein 7.8 g/dL 6.3-8. 2 Not Available [facility] (Lab) [address] [place], [address], 01/22/2024 20:40:34 01/22/2001/22/2024 COMPR EHENS LAURA METAB OLIC PANEL albumin 4.9 g/dL 3.0-4. 4 high Not Available [facility] (Lab) [address] [place], [address], 01/22/2024 20:40:34 01/22/20 24 01/22/2024 COMPR EHENS LAURA METAB OLIC PANEL globulin 2.9 g/dL 2.6-4. 2 Not Available [facility] (Lab) [address] [place], [address], 01/22/2024 20:40:34 01/22/20 24 01/22/2024 COMPR EHENS LAURA METAB OLIC PANEL A/G ratio 1.7 ratio 1.0-2. 0 Not Available [facility] (Lab) [address] [place], [address], 01/22/2024 20:40:34 01/22/2001/22/2024 LIPID PANEL cholesterol 212 mg/dL 140-19 9 high NIH DAYANA NSUS RECOM MENDA TION FOR MELANY STERO L: ADULT CHILD LOW RISK: <200 <170 BORDE RLINE : <200- 239 ----- HIGH RISK: >240 >200 Not Available [facility] (Lab) [address] [place], [address], 01/22/2024 20:40:39 01/22/20 24 01/22/2024 LIPID PANEL triglyceride s 213 mg/dL 0-150 high NIH DAYANA NSUS REPOR T RECOM MENDA TION FOR TRIGL YCERI TRICIA: ADULT CHILD LOW RISK: <150 ----- BODER LINE: 150-1 99 ----- HIGH RISK: >200 ----- Not Available [facility] (Lab) [address] [place], [address], 01/22/2024 20:40:39 01/22/20 24 01/22/2024 LIPID PANEL HDL cholesterol 67 mg/dL 40- Not Available [facility] (Lab) [address] [place], [address], 01/22/2024 20:40:39 01/22/20 24 01/22/2024 LIPID PANEL [...] WILL NOT BE REPOR EDWARD. Not Available [facility] (Lab) [address] [place], [address], 01/22/2024 20:40:39 01/22/20 24 01/22/2024 VITAM IN D 25-HY DROXY vd25oh 40.2 NG/mL 30-100 Vitam in D Statu s: Defic ient: <20 ng/mL Insuf ficie nt: 20-29 ng/mL Suffi cient : 30-10 0 ng/mL Not Available [facility] (Lab) [address] [place], [address], 01/22/2024 20:57:09 03/30/20 24 03/30/2024 XR, chest No observ ation record ed. BARCODE Not Available 2023 18:05:22 10/07/19 25 10/06/2024 CT, chest , w/o contr ast No observ ation record ed. [email or web address] [facility] [address], [place], [address], 10/12/2024 11:07:37 10/13/19 25 10/05/2024 CT, chest , w/o contr ast No observ ation record ed. BARCODE [facility] [address], [place], [address], 10/12/2024 15:14:56 11/03/1910/27/2024 PET, skull base to mid-t high No observ ation record ed. [email or web address] [facility] [address], [place], [address], 11/02/2024 14:23:10 Result Notes None recorded. Problems Name Problem SNOMED Code Status Onset Date Resolution Date Notes Provider Name and Address Organization Details Recorded Time Cellulit is 707213933 Completed Not Available [facility] 3 06:46:37 Hearing loss 38150364 Active Not Available [facility] 3 15:38:15 Angina pectoris 693082315 Completed Not Available [facility] 3 06:46:38 Gastroes ophageal reflux disease 883090775 Active Not Available [facility] 3 15:38:15 Infectio n of sebaceou s cyst 991810883 Completed Not Available [facility] 3 06:46:38 Thoracic back pain 599659801 Completed [facility] Available [facility] 3 06:46:39 Knee pain Completed Not Available [facility] 3 06:46:40 Osteoart hritis 286740322 Active Not Available [facility] 3 15:38:15 Acute upper respirat ory infectio n 34964469 Completed Not Available [facility] 3 06:46:41 Hyperlip idemia 43508211 Active Not Available [facility] 3 15:38:16 [facility] l hyperten josé miguel 31687474 Active Not Available [facility] 3 15:38:16 Skin lesion 92966165 Active Not Available [facility] 3 15:38:16 Insomnia 117034407 Active 2016 Not Available [facility] 3 15:38:15 Osteopor osis 67004018 Active 2016 Not Available [facility] 3 15:38:16 Thyroid nodule 737279020 Active 2017 Not Available [facility] 3 15:38:15 Multiple nodules of lung 369779185 Active 2017 PET 07/02, Benign Not Available [facility] 3 15:38:15 Solitary nodule of lung 172946389 Completed 201901/16/2022 Not Available [facility] 3 06:46:40 Edema 709352651 Active 2019 Not Available [facility] 3 15:38:15 Nail deformit y 366195845 Completed 202001/16/2022 Not Available [facility] 3 06:46:38 Hypertri glycerid emia 740295423 Active 2020 Not Available [facility] 3 15:38:15 Coronary arterios clerosis 03671291 Active 2020 Not Available [facility] 3 15:38:16 Adult health examinat ion Active 2020 Not Available [facility] 3 15:38:15 Long-ter m drug therapy Completed 202101/16/2022 Not Available [facility] 3 06:46:39 Onychomy cosis of toenails 587115903 Completed 202101/16/2022 Not Available [facility] 3 06:46:40 Pain of right knee joint 08882978863 4100 Active 2022 Not Available [facility] 3 15:38:16 Closed fracture of right patella 95837220442 947250 Active 2022 Not Available [facility] 3 15:38:15 Rib pain 494616994 Active 2022 Not Available [facility] 3 15:38:15 Facial lacerati on 020302877 Active 2022 Not Available [facility] 3 15:38:15 Solitary nodule of lung 851945682 Active 2022 Not Available [facility] 3 15:38:15 Pain of right ankle joint 27276092350 138508 Active 2022 Not Available [facility] 3 15:38:15 Closed fracture of patella 77901370 Active 2022 Not Available [facility] 3 15:38:16 Fracture of patella 03348335 Active 2022 Not Available [facility] 3 15:38:16 Hearing loss 76445373 Active 2022 Not Available [facility] 3 15:38:15 Dysphagi a 46422773 Active 2022 Not Available [facility] 3 15:38:15 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 2022 Not Available [facility] 3 15:38:15 Pain of left knee joint 66326462252 4107 Active 2022 NANNETTE Guerra, [place] [facility] 3 11:02:59 Osteoart hritis of left knee joint 69773078825 9109 Active 2022 NANNETTE Guerra null, [place] [facility] 3 08:58:09 Hemorrho ids 35388101 Active 2023 Shaan Farah MD [address], [address], [place], [address] , [place] [facility] 4 10:26:49 Hypercal cemia 90425530 Active 2023 Shaan Farah MD [address], [address], [place], [address] , [place] [facility] 4 08:52:35 Sinusiti s 92154910 Active 2024 Evelin Peng LPN null, [place] [facility] 5 12:48:42 Hypergly cemia 19124349 Active 2024 Shaan Farah MD [address], [address], [place], [address] , [place] [facility] 5 10:30:26 Pain of hip region 04514513 Active 2024 Shaan Farah MD [address], [address], [place], [address] , [facility] [employer] [facility] 5 16:53:32 Chest wall pain 798602600 Active 2024 Shaan Farah MD [address], [address], [place], [address] , [facility] [employer] [facility] 5 12:23:39 Computed tomograp hy result abnormal 059846071 Active 2024 Radha chaudhry RMA null, [facility] [employer] [facility] 5 17:20:10 Disorder of thyroid gland 53625728 Active 2024 Evelin Peng LPN null, [facility] [employer] [facility] 5 11:23:02 Right upper quadrant pain 578892241 Active 2024 Radha chaudhry RMMerced null, [facility] [employer] [facility] 5 12:52:47 Nodule of lung 157496232 Active 2024 Shaan Farah MD [address], [address], [place], [address] , [facility] [employer] [facility] 5 10:14:43 Problem Notes None recorded. Procedures Surgical History Date Name Laterality Status Provider Name and Address Organization Details Recorded Time 09/18/19 Medicare Wellness CPT Code, subsequent completed Mandy Latham RN [facility] [employer] [facility] 09/18/2023 10:37:37 09/15/19 23 Medicare Wellness CPT Code, subsequent completed Roshni Gutiérrez RN [facility] [employer] [facility] 09/14/2022 11:19:42 02/14/20 22 Most Recent Bone Density completed Roshni Gutiérrez RN [facility] [employer] [facility] 09/14/2022 11:21:47 06/30/19 10 Date of Last Colonoscopy completed Not Available [facility] 06/13/2022 06:41:20 Appendectomy completed Not Available [facility] 06/13/2022 06:41:23 Hysterectomy completed Not Available [facility] 06/13/2022 06:41:23 Imaging Results None recorded. Procedure Notes None recorded. Medical Equipment None Reported. Allergies Allergen ID Allergen Name Allergen Category Reaction Reaction Severity Criticality Documentation Date Start Date Code Code System Note Provider Name and Address Organization Details Recorded Time 11992 sulfur dioxide medicatio n rash Not available Not available 06/13/2022 57851 79 RxNorm Not Available [facility] 3 06:54:31 64729 Substance with sulfonami de structure and antibacte rial mechanism of action (substanc e) medicatio n rash Not available Not available 06/13/2022 23198 8003 SNOMED Not Available [facility] 3 06:54:31 46915 codeine medicatio n rash Not available Not available 06/13/2022 2670 RxNorm Not Available [facility] 3 06:54:32 Medications Name Sig Start Date [...] Updated DateTime 5 162.56 cm 27.1 kg/m2 06397.5 9 g 97.3 [degF] 68 /min 98 % 98 % 100/60 mm[Hg] Radha zuniga [employer] [facility] Strut 5 10:04:16 Date Recorded Body height Body mass index (BMI) Body weight Body temperature Heart rate Oxygen saturation Oxygen saturation in Arterial blood by Pulse oximetry Systolic And Diastolic Provider Name and Address Organization Details Last Updated DateTime 5 162.56 cm 26.8 kg/m2 93927.4 1 g 97.3 [degF] 64 /min 97 % 97 % 120/70 mm[Hg] Radha zuniga [employer] [facility] [employer] [facility] 5 09:15:59 Date Recorded Body height Body mass index (BMI) Body weight Body temperature Heart rate Oxygen saturation Oxygen saturation in Arterial blood by Pulse oximetry Provider Name and Address Organization Details Last Updated DateTime 5 162.56 cm 26.6 kg/m2 81937.8 2 g 97.4 [degF] 71 /min 97 % 97 % NANNETTE Mejia [employer] [facility] 5 12:12:59 Date Recorded Body height Body mass index (BMI) Body weight Body temperature Heart rate Oxygen saturation Oxygen saturation in Arterial blood by Pulse oximetry Systolic And Diastolic Provider Name and Address Organization Details Last Updated DateTime 5 162.56 cm 26.4 kg/m2 75420.2 2 g 97.3 [degF] 71 /min 97 % 97 % 132/70 mm[Hg] Radha Moctezumaisma NANNETTE zuniga [employer] 5 09:36:26 Date Recorded Body height Body mass index (BMI) Body weight Body temperature Heart rate Oxygen saturation Oxygen saturation in Arterial blood by Pulse oximetry Systolic And Diastolic Provider Name and Address Organization Details Last Updated DateTime 4 162.56 cm 26.6 kg/m2 50932.8 2 g 97.7 [degF] 62 /min 98 % 98 % 118/64 mm[Hg] NANNETTE Mejia [employer] 4 10:09:40 Social History Question Answer Notes LastModified by Organization Details LastModified Time Tobacco Smoking Status Never Smoker Not Available [facility] 06/13/2022 06:40:29 Do You Have An Advance Directive? Yes [email or web address] Information not available 06/13/2022 Are You Blind Or Do You Have Difficulty Seeing? No [email or web address] [id number] Information not available 06/13/2022 What Is Your Level Of Caffeine Consumption? Occasional [email or web address] [id number] Information not available 06/13/2022 How Much Tobacco Do You Chew? None [email or web address] [id number] Information not available 06/13/2022 Are You Deaf Or Do You Have Serious Difficulty Hearing? Yes Hearing Aids [email or web address] [id number] Information not available 06/13/2022 What Type Of Diet Are You Following? REGULAR [email or web address].030 [id number] Information not available 06/13/2022 Which Illicit Or Recreational Drugs Have You Used? None [email or web address] [id number] Information not available 06/13/2022 Have There Been Any Changes To Your Family Or Social Situation? No [email or web address] Information not available 09/18/2023 What Is The Fluoride Status Of Your Home? Fluoridated [id number] [id number] Information not available 06/13/2022 Are There Any Guns Present In Your Home? No [email or web address].[id number] [id number] Information not available 06/13/2022 Where Do You Live? SingleLevelHouse With Basement [id number].[id number] [id number] Information not available 06/13/2022 Presence Of Domestic Violence No [email or web address] Information not available 09/14/2022 Guns Present In The Home? No [email or web address] Information not available 09/18/2023 Are You Able To Care For Yourself? Yes [email or web address] Information not available 09/14/2022 Are You Blind Or Do Yo Have Difficulty Seeing? No [email or web address] Information not available 09/14/2022 Are You Deaf Or Do You Have Serious Difficulty Hearing? Yes Hearing Aids [email or web address] Information not available 09/14/2022 General Stress Level? Low [email or web address] Information not available 09/14/2022 Live Alone Of With Others? With Others [email or web address] Information not available 09/14/2022 What Was The Date Of Your Most Recent Tobacco Screening? 09/18/2023 [email or web address] Information not available 09/18/2023 Do You Have Any Pets? No [email or web address] Information not available 09/18/2023 What Is Your Relationship Status? [email or web address] Information not available 09/14/2022 Do You Use Your Seat Belt Or Car Seat Routinely? Yes [email or web address] [id number] Information not available 06/13/2022 Do You Have Smoke And Carbon Monoxide Detectors In Your Home? Yes [id number] Information not available 06/13/2022 Are You Passively Exposed To Smoke? No [email or web address] Information not available 09/18/2023 Are There Any Smokers In Your House? No [email or web address] Information not available 09/18/2023 Do You Use Sunscreen Routinely? Yes [id number] [id number] Information not available 06/13/2022 Do You Have Difficulty Walking Or Climbing Stairs? No [id number] [id number] Information not available 06/13/2022 Sex: Female Functional Status Question Answer Note LastModified by Organizat ion Details LastModified Time What is your level of alcohol consumption? None [id number] Information not available 06/13/2022 Do you have transportation difficulties? No [id number] Information not available 06/13/2022 Are you able to walk? YESWOREST [id number] 026 Information not available 06/13/2022 Do you have difficulty doing errands alone? No [id number] 026 Information not available 06/13/2022 Are you able to care for yourself independently? Yes [id number] 026 Information not available 06/13/2022 What is your occupation? retired [id number] 026 Information not available 06/13/2022 Do you have difficulty dressing, bathing, grooming, or toileting? No [id number] 026 Information not available 06/13/2022 What is your exercise level? Occasional [email or web address] Information not available 09/18/2023 Mental Status Question Answer Note LastModified by Organizat ion Details LastModified Time Do you have difficulty concentrating, remembering or making decisions? No [id number] Information not available 06/13/2022 Family History Relationship Description Onset Age of this Age Resolved Age Notes LastModified by Organization Details LastModified Time Mother Heart disease [id number].083 [id number] Not available 06/13/2022 06:41:24 Mother Essential hypertension MIGRATION.900 [id number] Not available 06/13/2022 06:41:24 Father Heart disease MIGRATION.389 [id number] Not available 06/13/2022 06:41:24 Father Essential hypertension MIGRATION.216 [id number] Not available 06/13/2022 06:41:24 Sister Family history of malignant neoplasm [id number].960 [id number] Not available 06/13/2022 06:41:24 Unspecified Relation Diabetes mellitus grands on MIGRATION.453 [id number] Not available 06/13/2022 06:41:24 Notes:NO ENT Medical History Condition Response HIGH CHOLESTEROL / HYPERLIPIDEMIA Y OSTEOPOROSIS Y ARTHRITIS Y BLOOD CLOTS Y SLEEP DISORDER Y HYPERTENSION Y Gynecological History Statement/Question Response Date of Last Pap Date of Last Mammogram 10/22/2018 Date of Last Colonoscopy 06/29/2009 Date of Last Mammogram Most Recent Bone Density 02/13/2022 Obstetrics History GPAL:G 0 P 0 0 0 0 Immunizations Vaccine Type Date Status Note Provider Nam e and Address Organization Details Recorded Time Influenza, high-dose, quadrivalent, PF 3 completed NANNETTE Gallo null, [place] [facility] [employer] [facility] 01/14/2023 17:01:22 SARS-COV-2 (COVID-19) vaccine, UNSPECIFIED 1 completed Not Available [facility] 02/21/2023 23:23:27 SARS-COV-2 (COVID-19) vaccine, UNSPECIFIED 1 completed Not Available [facility] 02/21/2023 23:23:27 Influenza, high-dose, trivalent, PF 0 completed Not Available [facility] 02/21/2023 23:23:27 Influenza, split virus, trivalent, preservative 5 completed Not Available [facility] 02/21/2023 23:23:27 Influenza, split virus, quadrivalent, preservative 9 completed Not Available [facility] 02/21/2023 23:23:26 Influenza, split virus, trivalent, preservative 4 completed Not Available [facility] 02/21/2023 23:23:27 Influenza, high-dose, quadrivalent, PF 2 completed Not Available [facility] 02/21/2023 23:23:26 Influenza, high-dose, trivalent, PF 8 completed Not Available [facility] 02/21/2023 23:23:27 Pneumococcal conjugate PCV 13 8 completed Not Available [facility] 02/21/2023 23:23:27 Influenza, split virus, quadrivalent, PF 7 completed Not Available [facility] 02/21/2023 23:23:27 pneumococcal polysaccharide PPV23 6 completed Not Available [facility] 02/21/2023 23:23:27 Influenza, split virus, quadrivalent, PF 6 completed Not Available [facility] 02/21/2023 23:23:27 Influenza, high-dose, trivalent, PF 4 completed Shaan Farah MD [address], [address], [place], [address], [facility] 01/22/2024 14:18:22 Past Encounters Encounter ID Performer Location Encounter Start Date Encounter Closed Date Diagnosis/Indication Diagnosis SNOMED-CT Code Diagnosis ICD10 Code Diagnosis Note [id number] Shaan Farah MD [facility] [place] [facility] [place] [address] 08/04/2020 00:00:00 08/04/2020 10:38:27 [id number] Shaan Farah MD [facility] [address] [address] 08/23/2020 00:00:00 08/23/2020 10:42:01 [id number] Shaan Farah MD [facility] Internal [facility] [address] [address] 12/27/2020 00:00:00 12/27/2020 10:57:59 [id number] [facility]_Histor ic_[place] _AT[place]NA_M IGRATION_ DEFAULT_1 _1 , 01/27/2021 00:00:00 01/31/2021 12:17:19 [id number] Shaan Farah MD [facility] Internal [facility] [address] [address] 05/16/2021 00:00:00 05/16/2021 11:37:54 [id number] Shaan Farah MD [facility] [address] [address] 09/14/2021 00:00:00 09/14/2021 11:33:41 [id number] Shaan Farah MD [facility] [address] [address] 01/17/2022 00:00:00 01/17/2022 12:42:23 [id number] Kevin Albert MD S_[facility]G [address] [address] 05/10/2022 00:00:00 05/10/2022 16:38:58 [id number] Shaan Farah MD S_[facility] Internal [address] [address] 05/17/2022 00:00:00 05/17/2022 11:23:48 [id number] Kevin Albert MD [facility]_[address] [address] 05/24/2022 00:00:00 05/24/2022 09:39:33 [id number] J[place] [address] 06/14/2022 08:44:19 06/14/2022 09:42:49 Closed fracture of right patella 7013641647 [id number] S82.001D [id number] Kevin Albert MD [place] [place] [address] 07/05/2022 08:56:13 07/05/2022 09:40:15 Fracture of patella 44847967 S82.001D [id number] Kevin Albert MD [address] [address] 07/26/2022 08:51:56 07/26/2022 09:41:14 Fracture of patella 62700517 S82.001D [id number] Kevin Albert MD [address] [address] 08/16/2022 09:08:14 08/16/2022 09:56:16 Pain of right knee joint 6359916962 55031 M25.561 [id number] Shaan Farah MD S_[facility] Internal Med [address] [address] 09/14/2022 10:29:26 09/14/2022 11:22:49 Essential hypertension 04988425 I10 under control Coronary arteriosclerosis 78383126 I25.10 stable Hyperlipidemia 75838001 E78.5 on meds and under control Gastroesop hageal reflux disease 036729755 K21.9 meds help Thyroid nodule 135878278 E04.1 s/p neg biopsy Solitary n odule of lung 018769221 R91.1 benign, no more w/u Hearing loss 65621320 H9 1.93 using hearing aids Osteoporosis 21568807 M8 1.0 meds on hold by ortho Insomnia 973541656 G47.0 0 trazodone helps Adult heal th examination 985702568 Z00.00 colonoscop y- 06/2009, does not need any moremammog hector- 10/2018, does not want any moredexa-1 neu movax - 12/2015pre vnar /18FLU- 2COV ID- 06/10/20, 07/02/20 booster 01/26/2021 Closed fra cture of right patella 7548836377 7299664 S82.001A seeing dr albert, using cane Screening for disorder 432288613 Z13.9 [id number] Fitz Bella MD [facility] [place] [address] [place] [address] 10/25/2022 11:28:55 10/25/2022 12:21:51 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 [address] 01/14/2023 10:26:55 01/14/2023 11:29:36 Essential hypertension 98738919 I10 under control Coronary arteriosclerosis 78138593 I25.10 stable Hyperlipidemia 17673881 E78.5 on meds and under control Gastroesop hageal reflux disease 837561811 K21.9 meds help Thyroid nodule 372042148 E04.1 s/p neg biopsy Solitary n odule of lung 186398661 R91.1 benign, no more w/u Hearing loss 34073268 H9 1.93 using hearing aids Osteoporosis 90130112 M8 1.0 meds on hold by ortho Insomnia 312464868 G47.0 0 trazodone helps Adult heal th examination 370969315 Z00.00 Colonoscop y- 06/2009, does not need any moreMammog hector- 10/2018, does not want any moreDexa-1 neu movax - 12/2015Pre vnar /18FLU- OV ID- 06/10/20, 07/02/20 booster 01/26/2021 Administra tion of influenza vaccine 20022244 Z23 Long-term drug therapy 825265859 Z79.899 Hypertriglyceridemia 302 944745 E78.1 watch diet Multiple n odules of lung 466829154 R91.8 Osteoarthritis 839441240 M19.90 otc [id number] Kevin Albert MD S_GM[address] [address] 02/14/2023 10:55:53 02/14/2023 16:05:29 Pain of left knee joint 6227571320 68811 M25.322 [id number] Kevin Albert MD S_[facility] [address] 02/28/2023 08:53:20 02/28/2023 09:37:47 Osteoarthritis of left knee joint 1888581070 84648 M17.12 [id number] Shaan Farah MD [facility] Internal Med [address] [place] [address] 05/17/2023 10:22:47 05/17/2023 11:41:57 Essential hypertension 61857995 I10 under control Coronary arteriosclerosis 28791448 I25.10 stable Hyperlipidemia 27290489 E78.5 on meds and under control, keep watching diet Gastroesop hageal reflux disease 598180941 K21.9 meds help Thyroid nodule 068305228 E04.1 s/p neg biopsy Solitary n odule of lung 227928935 R91.1 benign, no more w/u Hearing loss 41899867 H9 1.93 using hearing aids Osteoporosis 24599723 M8 1.0 meds on hold by ortho Insomnia 349142781 G47.0 0 trazodone prn, has some stress in [facility] family Adult heal th examination 611772841 Z00.00 Colonoscop y- 06/2009, does not need any moreMammog hector- 10/2018, does not want any moreDexa-1 neu movax - 12/2015Pre vnar 2/18FLU- 3COV ID- 06/10/20, 07/02/20 booster 01/26/2021 Hypertriglyceridemia 302 808282 E78.1 watch diet Multiple n odules of lung 512988853 R91.8 no more w/u Osteoarthritis 670078400 M19.90 otc voltaren [id number] Shaan Farah MD [facility] Internal Med [address] [facility] [place] [address] 09/18/2023 09:34:03 09/18/2023 10:38:34 Essential hypertension 57651185 I10 under control Coronary arteriosclerosis 07932268 I25.10 stable Hyperlipidemia 73180152 E78.5 keep watching diet Gastroesop hageal reflux disease 566847621 K21.9 meds help Thyroid nodule 529081781 E04.1 s/p neg biopsy Solitary n odule of lung 730661317 R91.1 benign, no more w/u Hearing loss 20535152 H9 1.93 using hearing aids Osteoporosis 54731454 M8 1.0 on meds Insomnia 646065275 G47.0 0 trazodone prn, has some stress in [facility] family Adult heal th examination 975229233 Z00.00 Colonoscop y- 06/2009, does not need any moreMammog hector- 10/2018, does not want any moreDexa-1 movax - 12/2015Pre vnar 2/18FLU- 3COV ID- 06/10/20, 07/02/20 booster 01/26/2021 Hypertriglyceridemia 302 100074 E78.1 watch diet Multiple n odules of lung 683908696 R91.8 no more w/u Osteoarthritis 663889482 M19.90 otc voltaren Hemorrhoids 76459711 K64 .9 Screening for disorder 078273088 Z13.9 [id number] Shaan Farah MD [facility] Internal Med [address] [facility] [place] [address] 01/22/2024 09:48:27 01/22/2024 11:10:46 Essential hypertension 12749314 I10 under control Coronary arteriosclerosis 53733988 I25.10 stable Hyperlipidemia 68409025 E78.5 keep watching diet Gastroesop hageal reflux disease 810791423 K21.9 meds help Thyroid nodule 986662249 E04.1 s/p neg biopsy Solitary n odule of lung 221311406 R91.1 benign, no more w/u Hearing loss 36687472 H9 1.93 using hearing aids Osteoporosis 80286369 M8 1.0 on meds, dexa next yime Insomnia 225228939 G47.0 0 trazodone helps Adult heal th examination 789344340 Z00.00 Colonoscop y- 06/2009, does not need any moreMammog hector- 10/2018, does not want any moreDexa-1 neu movax - 12/2015Pre vnar 2/18FLU- 01/22/2024 COVID- 06/10/20, 07/02/20 booster 01/26/2021 Hypertriglyceridemia 302 745150 E78.1 watch diet, labs Multiple n odules of lung 650476878 R91.8 no more w/u Osteoarthritis 538572717 M19.90 otc voltaren Hemorrhoids 54641288 K64 .9 meds help Long-term drug therapy 317379806 Z79.899 Administra tion of influenza vaccine 72852255 Z23 [id number] Shaan Farah MD [facility] Internal Med [address] [place] [address] 05/25/2024 09:48:18 05/25/2024 10:31:45 Essential hypertension 19252396 I10 under control Coronary arteriosclerosis 66268433 I25.10 stable Hyperlipidemia 97057184 E78.5 keep watching diet Gastroesop hageal reflux disease 461770482 K21.9 meds help Thyroid nodule 018724326 E04.1 s/p neg biopsy Solitary n odule of lung 199558043 R91.1 benign, no more w/u Hearing loss 32097998 H9 1.93 using hearing aids Osteoporosis 36455779 M8 1.0 on meds, dexa next yime Insomnia 355451761 G47.0 0 trazodone helps Adult heal th examination 526317892 Z00.00 Colonoscop y- 06/2009, does not need any moreMammog hector- 10/2018, does not want any moreDexa-1 neu movax - 12/2015Pre vnar 2/18FLU- 01/22/2024 COVID- 06/10/20, 07/02/20 booster 01/26/2021 Hypertriglyceridemia 302 704682 E78.1 watch diet, BETTER Multiple n odules of lung 951610512 R91.8 no more w/u Osteoarthritis 565637056 M19.90 otc voltaren Hemorrhoids 85145715 K64 .9 meds help Hypercalcemia 85680514 E 83.52 not ob otc Hyperglycemia 31230809 R 73.9 advise dto watch diet [id number] Shaan Farah MD [facility] Internal Med [address] [place] [address] 09/22/2024 09:05:35 09/22/2024 10:52:12 Essential hypertension 74505266 I10 under control Coronary arteriosclerosis 55983004 I25.10 stable Hyperlipidemia 72322946 E78.5 keep watching diet Gastroesop hageal reflux disease 779691078 K21.9 meds help Thyroid nodule 476486763 E04.1 s/p neg biopsy Solitary n odule of lung 675854452 R91.1 benign, no more w/u Hearing loss 79987034 H9 1.93 using hearing aids Osteoporosis 02529070 M8 1.0 on meds, dexa being done in 01/07 Insomnia 374655818 G47.0 0 trazodone helps Adult heal th examination 561439440 Z00.00 Colonoscop y- 06/2009, does not need any moreMammog hector- 10/2018, does not want any moreDexa-1 04/2021 scheduled for SeptPneumo vax - 12/2015Pre vnar 2/18FLU- 01/22/2024 COVID- 06/10/20, 07/02/20 booster 01/26/2021 Hypertriglyceridemia 302 167739 E78.1 watching diet Multiple n odules of lung 569317789 R91.8 no more w/u Osteoarthritis 268083576 M19.90 otc Hemorrhoids 65607571 K64 .9 meds help Hypercalcemia 89955012 E 83.52 not ob otc Hyperglycemia 27230278 R 73.9 advised to watch diet [id number] Shaan Farah MD S_[facility] Internal Med [address] [place] [address] 10/05/2024 12:06:45 10/05/2024 12:39:05 Chest wall pain 810449872 R07.89 [id number] Shaan Farah MD S[facility] Internal Med [address] [place] [address] 11/05/2024 09:28:30 11/05/2024 10:46:14 Right upper quadrant pain 160726423 R10.11 G89.29 pain is persistent everyday Nodule of lung 571549467 R91.1 likely slow growing cancer, due to her age and slow growth, family and pt decided not to pursue any further w/u like biopsy.saniya l get CT chest in a year Health Concerns Section Related Observation LastModified by Organization Detai ls LastModified Time None Recorded Concern Status LastModified by Organization Details LastModified Time None Recorded Advance Directives Directive Y: Payers Insurance Date Sequence Insurance Name Policy Number Policy Briggs Covered Member ID Briggs Member ID Guarantor Name 11/04/2024 1 [facility] - MEDICARE SOLUTIONS - MEDICARE COMPLETE (MEDICARE REPLACEMENT HMO) [id number] Monica L Harjit [id number] Monica L Harjit OBGyn Episode No OBEpisode recorded.
--- OUTSIDE RECORDS SUMMARY | 2024-11-09 14:18 | XMS_ITS | Clinical Summary ---
Author Organization [facility] Address [address] [place] [address] Phone Care Team Providers Care Marine Service Manager Name Role Phone Keegan Farah MD Primary Care Provider [phone] Allergies Active Allergy Reactions Criticality Noted Date [...] on file Legal Sex Female 1:11 PM CORPORATE STAFF ACCOUNTANT Gender Identity Not on file Sexual Orientation Not on file Last Filed Vital Signs Vital Sign Reading Time Taken Comments Blood Pressure 105/58 05/05/2022 3:30 PM CORPORATE STAFF ACCOUNTANT Pulse 79 05/05/2022 1:36 PM CORPORATE STAFF ACCOUNTANT Temperature 36.3 C (97.4 F) 05/05/2022 1:36 PM CORPORATE STAFF ACCOUNTANT Respiratory Rate 20 05/05/2022 1:13 PM CORPORATE STAFF ACCOUNTANT Oxygen Saturation 90% 05/05/2022 3:30 PM CORPORATE STAFF ACCOUNTANT Inhaled Oxygen Concentration - - Weight 73 kg (161 lb) 05/05/2022 1:13 PM CORPORATE STAFF ACCOUNTANT Height 162.6 cm (5' 4) 05/05/2022 1:13 PM CORPORATE STAFF ACCOUNTANT Body Mass Index 27.64 05/05/2022 1:13 PM CORPORATE STAFF ACCOUNTANT Plan of Treatment Health Maintenance Due Date [...] complete this topic Insurance MEDICARE C [facility] Care Teams Marine Service Manager Relationship Specialty Start Date End Date Keegan Farah MD PCP - General Internal Medicine 05/05/22
== END 2024-11-09 14:14 | disposition home or self-care (01) ==
LOC: ANHIMG 14:14
PROVIDERS: PCP Internal Medicine; Visit Provider Internal Medicine
DX: M81.0 Age-related osteoporosis without current pathological fracture (principal); M85.89 Other specified disorders of bone density and structure, multiple sites
CPT/HCPCS: 77080